=== PATIENT | male | born 1965 | race Caucasian/White ===

== ENCOUNTER 2024-01-16 11:46 | Emergency (ER) | payer BC, SELFPAY ==
[2024-01-16 11:54] VITALS: BP 122/73
[2024-01-16] MEDS: TYLENOL 1000 MG PO (12:39)
[2024-01-16 12:51] LABS: % Basophils 0.4 % (0-2); % Eosinophils 0.1 % (0-6); % Immature Granulocytes 0.6 % (0-0.5); % Lymphocytes 4.2 % (20.5-51.1); % Monocytes 6.1 % (1.7-9.3); % Neutrophils 88.6 % (42.2-75.2); Absolute Immature Granulocytes 0.1 10^3/uL (0-0.05); Absolute Lymphocytes 0.5 10^3/uL (1.2-3.4); Absolute Monocytes 0.7 10^3/uL (0.1-0.6); Hematocrit 25.6 % (39.0-52.0); Hemoglobin 8.7 g/dL (13.0-18.0); Mean Corpuscular Hgb 26.8 pg (27.0-31.0); Mean Corpuscular Volume 78.8 fL (80.0-94.0); Mean Platelet Volume 9.2 fL (7.4-10.4); Nucleated Red Blood Cells % 0 % (-); Platelet Count 243 10^3/uL (130-400); Red Blood Cell Count 3.25 10^6/uL (4.70-6.10); Red Cell Dist. Width 15.5 % (11.5-14.5); White Blood Cell Count 11.3 10^3/uL (4.8-10.8)
[2024-01-16 13:03] LABS: COVID-19 Antigen Negative (Negative); Lactic Acid 1.3 mmol/L (0.7-2.0)
[2024-01-16 13:06] LABS: ALT (SGPT) 37 U/L (0-50); AST (SGOT) 38 U/L (17-59); Albumin 3.6 g/dl (3.5-5.0); Alkaline Phosphatase 95 U/L (38-126); Blood Urea Nitrogen 25 mg/dl (9-20); Calcium 8.9 mg/dl (8.4-10.2); Carbon Dioxide 18 mmol/L (22-30); Chloride 103 mmol/L (98-107); Glucose 115 mg/dl (70-99); Potassium 4.2 mmol/L (3.5-5.1); Sodium 133 mmol/L (135-145); Total Bilirubin 0.9 mg/dl (0.2-1.3); Total Protein 6.6 g/dl (6.3-8.2); eGFR > 60.00
--- NOTE | 2024-01-16 14:21 | ED.GENMED ---
History of Present Illness
<Tim Diehl MD - Last Filed: 01/17/24 10:47>
General
Chief Complaint: Fever
Source: patient
Exam Limitations: none
Time Seen by Provider: 01/16/24 12:20
Nursing documentation reviewed up to this point in time: agreed with
Travel History
Have you had any contact with someone who has COVID-19?: No
Do you have any symptoms of coronavirus? Fever > 100 degrees, chills, cough, shortness of breath, sore throat, loss of taste or smell, muscle aches, or headache?: No
History of Present Illness
History of Present Illness:
Patient presents to ED secondary to generalized fatigue and weakness over the past 3 weeks, along with chills sensation upon waking up this morning. Patient has seen his primary care physician since onset of symptoms and was found to have anemia.
Patient has seen a GI physician as a follow-up, and received outpatient upper endoscopy which was 'normal'. Patient was given prescription to obtain CT abdomen pelvis afterwards, which has not been scheduled yet. Denies coughing. Denies sore
throat. Denies abdominal pain. Denies nausea, vomiting, or diarrhea. Denies headache. Denies dizziness. Denies recent change in medications or diet. Upon arrival, patient is found to be febrile, which he was not aware of.
Review of Systems
<Tim Diehl MD - Last Filed: 01/17/24 10:47>
Review of Systems
Allergies reviewed?: Yes
All Other Systems: ROS reviewed and negative except as documented in HPI and ROS
Constitutional: Reports fatigue and chills
EENT: Reports no symptoms
Respiratory: Reports cough
Cardiac: Reports no symptoms
ABD/GI: Reports no symptoms; Denies abdominal pain, nausea, vomiting or diarrhea
: Reports no symptoms
Musculoskeletal: Reports no symptoms
Skin: Reports no symptoms
Neurological: Reports weakness
Phy Exam
<Tim Diehl MD - Last Filed: 01/17/24 10:47>
Physical Exam
Physical Exam:
Physical Exam
General: mild distress, not acutely ill. febrile. tachycardic
Head: nc/at. eomi
Neck: supple. no meningeal signs.
Heart: tachycardic, no murmur. equal radial pulses.
Lungs: no acute respiratory distress. clear bilaterally
Abdomen: normal bowel sounds. not tender.
Neuro: alert and oriented. no focal neurological deficits
Skin: no rash
Psychiatric: well kept. interactive and cooperative
Extremities: no edema. no calf tenderness.
Course
<Tim Diehl MD - Last Filed: 01/17/24 10:47>
Orders/Labs/Results
Orders:
Orders
01/16/24 11:48
EKG [Electrocardiogram (*1)] Urgent
Reason for Study: Chest Pain
EKG- Treatment ONCE
01/16/24 12:31
CMP [Comprehensive Metabolic Panel] Urgent
COVID-19 Antigen Urgent
Source: Nasal Swab
Complete Blood Count/With Diff Urgent
Lactic Acid Urgent
Blood Culture Routine
[facility] Source: Blood/Venous
Specimen Description:
Date Specimen was Collected: 01/16/24
Time Specimen was Collected: 12:29
Influenza A+B Rapid Molecular Urgent
[facility] Source: Nasal Swab
Specimen Description:
01/16/24 12:37
Acetaminophen [Tylenol] 1,000 mg .ROUTE .[facility]-MED ONE
01/16/24 12:39
Acetaminophen [Tylenol] 1,000 mg PO NOW STA
01/16/24 14:18
Urinalysis Reflex To Culture Urgent
Date Specimen was Collected: 01/16/24
Time Specimen was Collected: 14:16
Urine Microscopic Reflex Cult Urgent
01/16/24 14:19
Iohexol [Omnipaque] See Protocol PO NOW STA
01/16/24 15:03
CT Chest/abd/pel W Iv Cont Urgent
Reason For Exam: COUGH, WT LOSS, ANEMIA,FEVER
01/16/24 19:19
Blood Culture Urgent
[facility] Source: Blood/Venous
Specimen Description:
Abnormal Lab Results
01/16/24 01/16/24
12:31 14:18
WBC 11.3 H 10^3/uL
(4.8-10.8)
RBC 3.25 L 10^6/uL
(4.70-6.10)
Hgb 8.7 L g/dL
(13.0-18.0)
Hct 25.6 L %
(39.0-52.0)
MCV 78.8 L fL
(80.0-94.0)
MCH 26.8 L pg
(27.0-31.0)
RDW 15.5 H %
(11.5-14.5)
Abs Immat Gran (auto) 0.1 H 10^3/uL
(0-0.05)
Absolute Neuts (auto) 10.0 H 10^3/uL
(1.4-6.5)
Absolute Lymphs (auto) 0.5 L 10^3/uL
(1.2-3.4)
Absolute Monos (auto) 0.7 H 10^3/uL
(0.1-0.6)
Immature Gran % 0.6 H %
(0-0.5)
Neutrophils % 88.6 H %
(42.2-75.2)
Lymphocytes % 4.2 L %
(20.5-51.1)
Sodium 133 L mmol/L
(135-145)
Carbon Dioxide 18 L mmol/L
(22-30)
BUN 25 H mg/dl
(9-20)
Glucose 115 H mg/dl
(70-99)
Ur Occult Blood Reflex 4+ A
(Negative)
Leukocyte Esterase Rfl Trace A
(Negative)
Urine RBC 26-30 A /HPF
(0-2)
Urine Bacteria (Reflex) Few A
(Negative)
01/16/24 12:31
01/16/24 12:31
Vital Signs
Initial and Last Documented VS:
Initial Vital Signs
Temp Pulse Resp BP Pulse Ox
102.9 F H 148 22 122/73 100
01/16/24 11:54 01/16/24 11:54 01/16/24 11:54 01/16/24 11:54 01/16/24 11:54
Last Documented Vital Signs
Temp Pulse Resp BP Pulse Ox
99.3 F 84 12 107/66 100
01/16/24 14:09 01/16/24 19:23 01/16/24 19:23 01/16/24 19:23 01/16/24 19:23
[place];Eugenio Davis, - Last Filed: 01/19/24 14:51>
Orders/Labs/Results
Orders:
Orders
01/16/24 11:48
EKG [Electrocardiogram (*1)] Urgent
Reason for Study: Chest Pain
EKG- Treatment ONCE
01/16/24 12:31
CMP [Comprehensive Metabolic Panel] Urgent
COVID-19 Antigen Urgent
Source: Nasal Swab
Complete Blood Count/With Diff Urgent
Lactic Acid Urgent
Blood Culture Routine
[facility] Source: Blood/Venous
Specimen Description:
Date Specimen was Collected: 01/16/24
Time Specimen was Collected: 12:29
Influenza A+B Rapid Molecular Urgent
[facility] Source: Nasal Swab
Specimen Description:
01/16/24 12:37
Acetaminophen [Tylenol] 1,000 mg .ROUTE .[facility]
01/16/24 12:39
Acetaminophen [Tylenol] 1,000 mg PO NOW STA
01/16/24 14:18
Urinalysis Reflex To Culture Urgent
Date Specimen was Collected: 01/16/24
Time Specimen was Collected: 14:16
Urine Microscopic Reflex Cult Urgent
01/16/24 14:19
Iohexol [Omnipaque] See Protocol PO NOW STA
01/16/24 15:03
CT Chest/abd/pel W Iv Cont Urgent
Reason For Exam: COUGH, WT LOSS, ANEMIA,FEVER
01/16/24 19:19
Blood Culture Urgent
[facility] Source: Blood/Venous
Specimen Description:
Abnormal Lab Results
01/16/24 01/16/24
12:31 14:18
WBC 11.3 H 10^3/uL
(4.8-10.8)
RBC 3.25 L 10^6/uL
(4.70-6.10)
Hgb 8.7 L g/dL
(13.0-18.0)
Hct 25.6 L %
(39.0-52.0)
MCV 78.8 L fL
(80.0-94.0)
MCH 26.8 L pg
(27.0-31.0)
RDW 15.5 H %
(11.5-14.5)
Abs Immat Gran (auto) 0.1 H 10^3/uL
(0-0.05)
Absolute Neuts (auto) 10.0 H 10^3/uL
(1.4-6.5)
Absolute Lymphs (auto) 0.5 L 10^3/uL
(1.2-3.4)
Absolute Monos (auto) 0.7 H 10^3/uL
(0.1-0.6)
Immature Gran % 0.6 H %
(0-0.5)
Neutrophils % 88.6 H %
(42.2-75.2)
Lymphocytes % 4.2 L %
(20.5-51.1)
Sodium 133 L mmol/L
(135-145)
Carbon Dioxide 18 L mmol/L
(22-30)
BUN 25 H mg/dl
(9-20)
Glucose 115 H mg/dl
(70-99)
Ur Occult Blood Reflex 4+ A
(Negative)
Leukocyte Esterase Rfl Trace A
(Negative)
Urine RBC 26-30 A /HPF
(0-2)
Urine Bacteria (Reflex) Few A
(Negative)
01/16/24 12:31
01/16/24 12:31
Vital Signs
Initial and Last Documented VS:
Initial Vital Signs
Temp Pulse Resp BP Pulse Ox
102.9 F H 148 22 122/73 100
01/16/24 11:54 01/16/24 11:54 01/16/24 11:54 01/16/24 11:54 01/16/24 11:54
Last Documented Vital Signs
Temp Pulse Resp BP Pulse Ox
99.3 F 84 12 107/66 100
01/16/24 14:09 01/16/24 19:23 01/16/24 19:23 01/16/24 19:23 01/16/24 19:23
<Tim Diehl MD - Last Filed: 01/17/24 10:47>
*Critical Care Note
Total Time (30-74mins, 75-104mins- exclusive of procedures): Not Applicable
<Eugenio Davis DO - Last Filed: 01/19/24 14:51>
Update Note
Update Note:
Received signout on patient pending CAT scan report. CT does not show any evidence for infectious process, lymphoma or other reason for fever and anemia. Patient feeling okay right now. Does not require transfusion now. Will refer to heme-onc
for further workup of his microcytic anemia given he had a negative EGD recently had a negative colonoscopy a year ago. Will recommend the patient start iron as well.
ED Attending Note
<Tim iDehl MD - Last Filed: 01/17/24 10:47>
-
Portions of this chart may have been created with voice recognition software.� Occasional wrong word or��sound alike� substitutions may have occurred due to the inherent limitations of voice recognition software.
Discharge Plan
Departure
Patient Disposition: Home (Routine Discharge)
Date of Disposition: 01/16/24
Time of Disposition: 19:13
Patient with high blood pressure during this ER visit?: No
Condition: Good
Discharge Problem:
Fever, Anemia
Instructions: Fever, Adult (DC), Anemia, Possibly From Low Iron, Adult ED
Prescriptions:
No Action
acetaminophen [Tylenol] 325 mg Tablet
650 mg PO Q6HPRN PRN (Reason: mild pain)
atorvastatin [Lipitor] 20 mg Tablet
20 mg PO DAILY
cyanocobalamin (vitamin B-12) 1,000 mcg Tablet
1,000 mcg PO DAILY
ferrous sulfate 325 mg (65 mg iron) Tablet
325 mg PO DAILY
Referrals:
Belinda Rios MD [Active] -
Vineet Chin DO [Family Provider] -
Activity Restrictions/Additional Instructions:
Continue taking Iron. Call Dr. Leos's office for the next available appointment. Return if you feel you are getting worse. We will call you if your blood cultures grow anything.
Interventions
Interventions:
*Risk Screen - Suicide Last Done: 01/16/24 12:52
*General Assessment Last Done: 01/16/24 12:52
*Neglect/Abuse Screening Last Done: 01/16/24 12:52
ED- Fall Risk Assessment Last Done: 01/16/24 12:52
*ED COVID-19 Vaccine History Last Done: 01/16/24 12:52
*Nursing Disposition Last Done: 01/16/24 19:36
ED- Neurological Assessment Last Done: 01/16/24 12:52
ED-Skin Assessment Last Done: 01/16/24 12:52
Discharge Date and Time
Discharge Date/Time: 01/16/24 19:37
[2024-01-16] MEDS: OMNIPAQUE 50 ML PO (14:24)
[2024-01-16 14:27] LABS: Urine Albumin Trace (Neg - Trace); Urine Bilirubin Negative (Negative); Urine Character Clear (Clear); Urine Color Yellow; Urine Glucose Negative (Negative); Urine Ketone Negative (Negative); Urine Leukocyte Trace (Negative); Urine Nitrite Negative (Negative); Urine Occult Blood 4+ (Negative); Urine Specific Gravity 1.015 (<1.030); Urine Urobilinogen Negative (Neg - 1+)
[2024-01-16 14:39] LABS: Urine Squamous Cell 0-2 /LPF (Few)
[2024-01-16 14:40] LABS: Urine Bacteria Few (Negative); Urine Red Blood Cell 26-30 /HPF (0-2)
--- NOTE | 2024-01-16 19:00 | EDRN ---
Assumed care at this time, introduced myself to patient, rechecked vitals as well first reading was low, repeated and ambulated patient per Dr. Guzman request who also is in at bedside re-assessing patient. Patient reports he feels much better
then he did earlier.
[2024-01-16 19:16] VITALS: BP 76/48
[2024-01-16 19:18] VITALS: BP 70/58
[2024-01-16 19:19] VITALS: BP 101/68
[2024-01-16 19:23] VITALS: BP 107/66
== END 2024-01-16 19:37 | disposition home or self-care (01) ==
LOC: EMR 11:46
PROVIDERS: EMERGENCY PHYSICIAN Emergency Medicine; FAMILY PHYSICIAN Family Medicine Sports Medicine
DX: R50.9 Fever, unspecified (principal); D64.9 Anemia, unspecified; D72.829 Elevated white blood cell count, unspecified; I10 Essential (primary) hypertension
CPT/HCPCS: 99284; 71260; 74177; 80053; 81003; 81015; 83605; 85025; 87040; 87077; 87205; 87502; 87811; 93005; Q9967

== ENCOUNTER 2024-01-17 18:27 | Inpatient (IN) | payer BC, SELFPAY ==
[2024-01-17 16:01] VITALS: BP 118/67
[2024-01-17 16:59] VITALS: BMI 27.4
--- NOTE | 2024-01-17 17:06 | ED.GENMED ---
History of Present Illness
General
Chief Complaint: Abnormal Lab Value
Source: patient
Time Seen by Provider: 01/17/24 16:35
Travel History
Have you had any contact with someone who has COVID-19?: No
Do you have any symptoms of coronavirus? Fever > 100 degrees, chills, cough, shortness of breath, sore throat, loss of taste or smell, muscle aches, or headache?: No
History of Present Illness
History of Present Illness:
58-year-old male presents to the emergency room after being called to return today. Patient was here yesterday for fever, chills, malaise lasting 3 weeks. He has been undergoing workup by his primary care doctor who identified he was anemic. He
had a upper endoscopy performed which was unremarkable. Had a colonoscopy 1 year ago which was unremarkable. During his visit yesterday he had a CT of the chest abdomen pelvis which did not reveal any source of infection or reason for anemia.
Patient continued to have subjective fever and chills last night.
Phy Exam
Physical Exam
Physical Exam:
General: Awake, Alert, Oriented X3. Appears ill but not unstable
Vitals: unremarkable
Head: Atraumatic
Eyes: Pupils equal, EOMI
Throat: Airway intact, no exudates
Neck: Trachea midline
Lungs: Clear and equal b/l
Heart: Regular rate, no murmurs
Abd: Soft, Nontender, No pulsatile mass
Neuro: Nonfocal
Skin: Pale, warm, dry, no rash
Extremities: pulses equal b/l, no edema
Course
Orders/Labs/Results
Orders:
Orders
01/17/24 Lunch
Regular
At Your Request: Full Participation
Does patient need a safe tray?: No
Reason for opting out of [employer] order writing: Provider Decision
01/17/24 16:43
Cardiac Monitoring- Treatment ONCE
03/03/24 16:45
0.9% Sodium Chloride 1000 ml [Nss] 1,000 ml IV BOLUS
01/17/24 17:05
CefTRIAXone [Rocephin] 1,000 mg IV NOW STA
01/17/24 17:07
Basic Metabolic Panel Urgent
Complete Blood Count/With Diff Urgent
Lactic Acid Q4H
Comment: CANCEL 2nd LACTIC ACID IF 1st LACTIC ACID IS LESS THAN 2
Urinalysis Reflex To Culture Urgent
Date Specimen was Collected: 01/17/24
Time Specimen was Collected: 16:57
Urine Microscopic Reflex Cult Urgent
Blood Culture Q30M
[facility] Source: Blood/Venous
Specimen Description:
Blood Culture Q30M
[facility] Source: Blood/Venous
Specimen Description:
Urine Culture Urgent
[facility] Source: U
Specimen Description:
Date Specimen was Collected: 01/17/24
Time Specimen was Collected: 16:57
01/17/24 17:36
Vancomycin [Vancocin] 2,000 mg 0.9% Sodium Chloride 500 ml [Nss] 500 ml IV NOW
01/17/24 17:43
Acetaminophen [Tylenol] 650 mg .ROUTE .[facility]
01/17/24 18:05
Admit/Transfer Patient As Directed
Co-Sign Provider:
Level of Care: Inpatient admission
Assign to:: Telemetry
Physician / Group: Kari Greene
Diagnosis: bacteremia, possible endocarditis
Reason for Telemetry: Other
Other Reason for Telemetry: bacteremia, possible endocarditis
Date to Stop Telemetry: 01/19/24
Time to Stop Telemetry: 11:00
Reason for Hospitalization: bacteremia, possible endocarditis
Expected length of stay greater than two midnights?: Yes
ELOS- Estimated Length of Stay in days: 3
I certify the patient meets the requirements for IP care: Yes
01/17/24 18:06
Code Status As Directed
Resuscitation Status: Full Code
01/17/24 21:16
0.9% Sodium Chloride 1000 ml [Nss] 1,000 ml IV 60 mls/hr
Acetaminophen [Tylenol] 650 mg PO Q6HPRN PRN
Enoxaparin Sodium [Lovenox] 40 mg SC QPM
Ondansetron Injectable [Zofran] 4 mg IV Q6HPRN PRN
VANCOMYCIN Pharmacy to Dose [VANCOCIN Pharmacy to Dose] 1 each Pharmacy To Prepare [Call Pharmacy To Prepare] 0 ml IV PER PROTOCOL
01/17/24 21:16
Echo 2D MMode Color/Doppler Routine
Reason for Study: bacteremia, possible endocarditis
INFECTIOUS DISEASE CONSULT Routine
Consulting Provider: Michela Munroe
Was physician already notified: Yes
Activity As Directed
Activity Level: As Tolerated
Vital Signs As Directed
Frequency: Per unit guidelines
DX Deep Vein Thrombosis Video Routine
01/18/24 06:00
Basic Metabolic Panel IN AM
Complete Blood Count/With Diff IN AM
Ferritin IN AM
Folate IN AM
Haptoglobin [S] IN AM
Iron IN AM
LDH IN AM
Reticulocyte Count IN AM
Total Iron Binding IN AM
Vitamin B12 IN AM
01/18/24 08:00
Atorvastatin [Lipitor] 20 mg PO DAILY
01/18/24 10:00
CefTRIAXone [Rocephin] 1,000 mg IV Q24H
01/19/24 06:00
Basic Metabolic Panel IN AM
Complete Blood Count/With Diff IN AM
01/19/24 11:00
DC Protocol for Telemetry ONCE
01/20/24 06:00
Basic Metabolic Panel IN AM
Complete Blood Count/With Diff IN AM
Abnormal Lab Results
01/17/24
17:07
WBC 15.1 H 10^3/uL
(4.8-10.8)
RBC 3.23 L 10^6/uL
(4.70-6.10)
Hgb 8.8 L g/dL
(13.0-18.0)
Hct 25.5 L %
(39.0-52.0)
MCV 78.9 L fL
(80.0-94.0)
RDW 15.9 H %
(11.5-14.5)
Abs Immat Gran (auto) 0.1 H 10^3/uL
(0-0.05)
Absolute Neuts (auto) 12.6 H 10^3/uL
(1.4-6.5)
Absolute Monos (auto) 1.0 H 10^3/uL
(0.1-0.6)
Immature Gran % 0.6 H %
(0-0.5)
Neutrophils % 83.1 H %
(42.2-75.2)
Lymphocytes % 9.3 L %
(20.5-51.1)
Sodium 134 L mmol/L
(135-145)
Chloride 108 H mmol/L
(98-107)
Carbon Dioxide 20 L mmol/L
(22-30)
BUN 25 H mg/dl
(9-20)
Glucose 102 H mg/dl
(70-99)
Ur Occult Blood Reflex 4+ A
(Negative)
Leukocyte Esterase Rfl Trace A
(Negative)
Urine RBC 3-6 A /HPF
(0-2)
Urine WBC (Reflex) 16-20 A /HPF
(0-5)
Urine Bacteria (Reflex) Few A
(Negative)
01/17/24 17:07
01/17/24 17:07
Vital Signs
Initial and Last Documented VS:
Initial Vital Signs
Temp Pulse Resp BP Pulse Ox
97.8 F 91 18 118/67 100
01/17/24 16:01 01/17/24 16:01 01/17/24 16:01 01/17/24 16:01 01/17/24 16:01
Last Documented Vital Signs
Temp Pulse Resp BP Pulse Ox
97.6 F 87 18 118/71 99
01/17/24 21:05 01/17/24 21:05 01/17/24 21:05 01/17/24 21:05 01/17/24 21:05
MDM/Problems Addressed
Differential Diagnosis Includes:
Bacteremia, UTI, endocarditis
MDM/Problems Addressed:
Patient presents after being called back to the emergency room. He was here yesterday and blood cultures were positive. Patient feels just as poorly today as he did yesterday but no worse. No new complaints from yesterday. Broad-spectrum
antibiotic started in the form of Vanco and Rocephin. Patient will require hospitalization for IV antibiotics to treat the bacteremia and to identify the source.
Patient's labs today show an elevated white count of 15,000 which is slightly higher from yesterday. He has a left shift with some immature granulocytes. Renal function is similar.
Chronic conditions affecting care: Other (Anemia)
*Pulse Oximetry
Patient hypoxic: no
*Critical Care Note
Total Time (30-74mins, 75-104mins- exclusive of procedures): Not Applicable
ED Attending Note
-
Portions of this chart may have been created with voice recognition software.� Occasional wrong word or��sound alike� substitutions may have occurred due to the inherent limitations of voice recognition software.
Discharge Plan
Departure
Patient Disposition: Admit
Date of Disposition: 01/17/24
Time of Disposition: 17:06
Admit to: Med/Surg
Presentation/result/management discussed w/ accepting MD/DO: Hospitalist
Condition: Serious
Discharge Problem:
Bacteremia
Interventions
Interventions:
*Risk Screen - Suicide Last Done: 01/17/24 16:59
*General Assessment Last Done: 01/17/24 16:59
*Neglect/Abuse Screening Last Done: 01/17/24 16:59
ED- Fall Risk Assessment Last Done: 01/17/24 16:59
*ED COVID-19 Vaccine History Last Done: 01/17/24 16:59
*Nursing Disposition Last Done: 01/17/24 21:05
Discharge Date and Time
Discharge Date/Time: 01/17/24 21:05
[2024-01-17 17:14] LABS: % Basophils 0.4 % (0-2); % Eosinophils 0.3 % (0-6); % Immature Granulocytes 0.6 % (0-0.5); % Lymphocytes 9.3 % (20.5-51.1); % Monocytes 6.3 % (1.7-9.3); % Neutrophils 83.1 % (42.2-75.2); Absolute Basophils 0.1 10^3/uL (0-0.2); Absolute Immature Granulocytes 0.1 10^3/uL (0-0.05); Absolute Lymphocytes 1.4 10^3/uL (1.2-3.4); Absolute Neutrophils 12.6 10^3/uL (1.4-6.5); Hematocrit 25.5 % (39.0-52.0); Hemoglobin 8.8 g/dL (13.0-18.0); Mean Corp Hgb Conc. 34.5 g/dL (33.0-37.0); Mean Corpuscular Hgb 27.2 pg (27.0-31.0); Mean Corpuscular Volume 78.9 fL (80.0-94.0); Mean Platelet Volume 9.1 fL (7.4-10.4); Nucleated Red Blood Cells % 0 % (-); Platelet Count 245 10^3/uL (130-400); Red Blood Cell Count 3.23 10^6/uL (4.70-6.10); Red Cell Dist. Width 15.9 % (11.5-14.5); White Blood Cell Count 15.1 10^3/uL (4.8-10.8)
[2024-01-17 17:26] LABS: Blood Urea Nitrogen 25 mg/dl (9-20); Calcium 8.5 mg/dl (8.4-10.2); Carbon Dioxide 20 mmol/L (22-30); Chloride 108 mmol/L (98-107); Estimated Creatinine Clearance 65 ml/min; Glucose 102 mg/dl (70-99); Lactic Acid 0.9 mmol/L (0.7-2.0); Sodium 134 mmol/L (135-145); eGFR > 60.00
[2024-01-17 17:30] LABS: Potassium 3.9 mmol/L (3.5-5.1)
[2024-01-17] MEDS: ROCEPHIN 1000 MG IV (17:31)
[2024-01-17] MEDS: NSS 1000 IV ×2 (17:32→21:57)
[2024-01-17] MEDS: VANCOCIN 540 MG IV (17:44)
--- NOTE | 2024-01-17 17:57 | HPS.HSE ---
Family Physician
-
Family Physician: Vineet Chin
Chief Complaint
-
fevers, chills x 3 weeks
History of Present Illness
58 y/o M hx of HLD, presents to ER for chills and weakness x 3 weeks. He reports obtaining blood work which showed anemia - he saw GI And had a normal EGD (no evidence of bleeding). He presented to ER yesterday and had a bear CT which was negative
and blood cultures. Today those blood cultures grew positive in both bottles, and patient was asked to return to ER For admission. Cultures are growing gram + cocci in chains. At present he only complaints of chills and some muscle aches. Denies any
headache, vision changes, back or neck pain, no chest pain or SOB, no GI Complaints. no rashes. Denies any trauma or injuries. No recent procedures outside of EGD.
In ER was given Vanco/Rocephin per ID and admitted.
Medical History
Past Medical History
Past Medical History: Reports Hypercholesterolemia
Past Surgical History: Reports None
Social History
Tobacco: Non-smoker
Alcohol: Occasional
Drug: None
Employment: Retired
Family History
Family History: Not pertinent
Allergies / Home Medications
Allergies reflects when Allergies were last updated in [facility].
Home Medications with original date entered in [facility]
Allergy/Medication List:
Allergies
Allergy/AdvReac Type Severity Reaction Status Date / Time
No Known Allergies Allergy Unverified 01/17/24 16:02
Home Medications
acetaminophen 325 mg tablet (Tylenol) 650 mg PO Q6HPRN PRN mild pain 01/17/24
atorvastatin 20 mg tablet (Lipitor) 20 mg PO DAILY 01/17/24
cyanocobalamin (vitamin B-12) 1,000 mcg tablet 1,000 mcg PO DAILY 01/17/24
ferrous sulfate 325 mg (65 mg iron) tablet 325 mg PO DAILY 01/17/24
Review of Systems
-
A 12 point ROS was completed and negative except as noted: Yes
Physical Exam
Vital Signs
Vital Signs
Temp Pulse Resp BP Pulse Ox
97.8 F 101 20 118/67 100
01/17/24 16:01 01/17/24 17:30 01/17/24 17:30 01/17/24 16:01 01/17/24 17:10
Physical Exam
General: Appears in Distress and Chills
HEENT: NormoCephalic and Anicteric
Respiratory: No Wheezes or Rales
Cardiac: S1/S2 and Regular Rhythm; No Murmur
GI: Soft and Non Tender
Neuro: AO x 3
Hematologic/Lymphatic: No Lymphadenopathy
Psych: Calm
Laboratory Results
-
01/17/24 17:07
01/17/24 17:07
Laboratory Results
Lactic Acid 0.9 mmol/L (0.7-2.0) 01/17/24 17:07
Data Reviewed
-
Lab Data: Labs Reviewed by me
Impression/Plan
-
Assessment:
early sepsis POA (tachycardia, leukocytosis, bacteremia)
Gram positive bacteremia
- in 2/2 bottles drawn 3/2 in ER
- CT C/A/P 3/2: normal
- UA pending
- check Echo to eval possible subacute or acute IE
- ID consulted; start Vancomycin/Rocephin
Anemia, suspected acute related to bacteremia
- check anemia workup including iron studies, b12, folate, hemolysis labs
- recent EGD per patient was normal. C-scope 1 year prior was also normal
Hyponatremia
- 1 bag NSS overnight and repeat BMP in AM
HLD - on statin
DVT ppx: Lovenox
Code: Full
[2024-01-17 18:00] VITALS: BP 128/75
[2024-01-17 19:00] VITALS: BP 111/75
[2024-01-17 19:59] LABS: Urine Albumin Trace (Neg - Trace); Urine Bilirubin Negative (Negative); Urine Character Clear (Clear); Urine Color Yellow; Urine Glucose Negative (Negative); Urine Ketone Negative (Negative); Urine Leukocyte Trace (Negative); Urine Nitrite Negative (Negative); Urine Occult Blood 4+ (Negative); Urine Urobilinogen Negative (Neg - 1+)
[2024-01-17 20:00] VITALS: BP 113/73
[2024-01-17 20:26] LABS: Urine Granular Cast 2 /LPF (0)
[2024-01-17 20:27] LABS: Urine White Cell Cast 6 /LPF
[2024-01-17 20:29] LABS: Urine Bacteria Few (Negative); Urine Mucus Many; Urine White Cell 16-20 /HPF (0-5)
[2024-01-17 21:05] VITALS: BP 118/71; BMI 28.5
--- NOTE | 2024-01-17 21:22 | PHA.VAN.IN ---
Assessment
- Assessment
Renal Function: Unknown baseline
Concomitant Antimicrobials: ceftriaxone
Plan
- Plan
Initial / Loading Dose: 2000mg - 01/16 17:44
Maintenance Regimen: dosing by level given unknown baseline SCR
Monitoring: random 01/17 0600
Pharmacokinetics Vancomycin I
- -
Patient Age: 58
Patient Sex: Male
Vancomycin Day #: 1
Indication: Bacteremia
Requesting Provider: Dr. Ahuja
Pertinent Antimicrobial Allergies:
NKDA
Height / Weight:
Height 5 ft 8 in
Actual Weight 84.935 kg
- Vital Signs / Lab Results
Temp Pulse Resp BP Pulse Ox
97.6 F 87 18 118/71 99
01/17/24 21:05 01/17/24 21:05 01/17/24 21:05 01/17/24 21:05 01/17/24 21:05
Lab Results - Hematology
01/17/24
17:07
WBC 15.1 H
Lab Results - Chemistry
01/17/24
17:07
BUN 25 H
Creatinine 1.2
Estimated Creat Clear 65
01/17/24 01/17/24
17:07 20:45
Lactic Acid 0.9 Cancelled
Lab Results - Urine
01/17/24
17:07
Urine Nitrite (Reflex) Negative
Leukocyte Esterase Rfl Trace A
Urine WBC (Reflex) 16-20 A
Urine Bacteria (Reflex) Few A
[2024-01-17] MEDS: LOVENOX 40 MG SC (21:57)
--- NOTE | 2024-01-17 23:20 | PTCARENOTE ---
Receive pt from ER. Pt alert oriented X3 calm and cooperative, in no distress. Pt assisted X1 to his bed, steady. Pt oriented to the room, call bliss within reach. Pt offers no complaint of fever, chills, chest pain, or SOB. Pt T=97.6, HR=87, RR=18,
CR=816/71, SpO2=99% on RA. Pt on NSR on telemonitor. IVFs infusing as per order. Will continue to monitor the pt.
[2024-01-17 23:22] VITALS: BP 110/68
[2024-01-18 03:42] VITALS: BP 114/69
[2024-01-18 07:20] VITALS: BP 117/71
[2024-01-18] MEDS: LIPITOR 20 MG PO (08:04)
[2024-01-18 08:15] LABS: % Basophils 0.4 % (0-2); % Eosinophils 0.6 % (0-6); % Immature Granulocytes 0.5 % (0-0.5); % Lymphocytes 11.5 % (20.5-51.1); % Monocytes 9.9 % (1.7-9.3); % Neutrophils 77.1 % (42.2-75.2); Absolute Eosinophils 0.1 10^3/uL (0-0.7); Absolute Immature Granulocytes 0.1 10^3/uL (0-0.05); Absolute Lymphocytes 1.1 10^3/uL (1.2-3.4); Absolute Neutrophils 7.5 10^3/uL (1.4-6.5); Hematocrit 23.3 % (39.0-52.0); Hemoglobin 7.9 g/dL (13.0-18.0); Mean Corp Hgb Conc. 33.9 g/dL (33.0-37.0); Mean Corpuscular Hgb 27.3 pg (27.0-31.0); Mean Corpuscular Volume 80.6 fL (80.0-94.0); Mean Platelet Volume 9.7 fL (7.4-10.4); Nucleated Red Blood Cells % 0 % (-); Platelet Count 224 10^3/uL (130-400); Red Blood Cell Count 2.89 10^6/uL (4.70-6.10); Red Cell Dist. Width 15.9 % (11.5-14.5); Reticulocyte Count 1.3 % (0.4-2.8); White Blood Cell Count 9.8 10^3/uL (4.8-10.8)
[2024-01-18 08:45] LABS: Blood Urea Nitrogen 18 mg/dl (9-20); Calcium 8.1 mg/dl (8.4-10.2); Carbon Dioxide 19 mmol/L (22-30); Chloride 113 mmol/L (98-107); Estimated Creatinine Clearance 78 ml/min; Glucose 81 mg/dl (70-99); Iron 46 ug/dl (49-181); LDH 176 U/L (120-246); Potassium 3.9 mmol/L (3.5-5.1); Sodium 136 mmol/L (135-145); eGFR > 60.00
[2024-01-18 08:53] LABS: Percent Saturation 23 % (20-50); Total Iron Binding Capacity 197 ug/dl (261-462)
[2024-01-18 08:56] LABS: Vancomycin Random 12.6 ug/ml
[2024-01-18] MEDS: STERILE WATER FOR INJECTION 10 ML IV (09:45)
[2024-01-18] MEDS: ROCEPHIN 1000 MG IV (09:45)
--- NOTE | 2024-01-18 09:47 | W.PN.HOSP.TC ---
Today's Communication/Plan
-
.
Assessment / Plan
Assessment / Plan
Physical Exam
General: Appears in Distress and Chills
HEENT: NormoCephalic and Anicteric
Respiratory: No Wheezes or Rales
Cardiac: S1/S2 and Regular Rhythm; soft systolic Murmur
GI: Soft and Non Tender
Neuro: AO x 3
Hematologic/Lymphatic: No Lymphadenopathy
Psych: Calm
# Bacteremia
early sepsis POA (tachycardia, leukocytosis, bacteremia)
Gram positive, streptococcal bacteremia
Preliminary echocardiogram showing vegetation on the aortic valve with moderate to severe aortic regurgitation. LVEF 60-65%
- CT C/A/P 3/: normal
-No chest pain. No shortness of breath
_ WBC normalized
Continue with IV antibiotic
Appreciate ID and cardiology input
# Valvular heart disease
Mild to moderate mitral regurgitation/moderate to severe aortic regurgitation
# Anemia, No active bleeding
OP Upper EGD reportedly normal
CT abdomen Chest / Abdomen/ pelvis showed no source of bleeding or anemia other than diverticulosis
-Low iron level
- C-scope 1 year prior was also normal
#Hyponatremia
- 1 bag NSS overnight and repeat BMP in AM
HLD - on statin
DVT ppx: Lovenox
Code: Full
Total time spent to see the patient, examine the patient on the floor, review data and lab results, discuss treatment plan with patient, nursing staff around 55 minutes
Anticipated Discharge: > 48 hours
Subjective/Interval History
-
Date of Service: January 18, 2024
No chest pain
No sob
No fevers
Objective Data
-
Labs:
Laboratory Results
01/18/24
06:43
WBC 9.8
Hgb 7.9 L
Hct 23.3 L
Plt Count 224
Sodium 136
Potassium 3.9
Chloride 113 H
Carbon Dioxide 19 L
BUN 18
Creatinine 1.0
Glucose 81
Calcium 8.1 L
Vital Signs:
Vital Signs
Temp Pulse Resp BP Pulse Ox
98.2 F 82 16 117/71 98
01/18/24 07:20 01/18/24 07:20 01/18/24 07:20 01/18/24 07:20 01/18/24 08:00
I&O
01/17/24 01/18/24 01/19/24
06:59 06:59 06:59
Intake Total 740 / 740
Balance 740 / 740
--- NOTE | 2024-01-18 09:53 | CON.CAR ---
Addendum entered and electronically signed by Raciel Giron MD 01/18/24 11:38:
I saw and examined the patient.
The BULL GANG WORKER's note was reviewed and I agree with the note.
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 No overt heart failure. We favor early JAZMYN to look carefully at MV and aortic root. Will need serial clinical, electrocardiographic, and echocardiographic followup. I reviewed
pathophysiology of endocarditis and valve damage from IE.
Original Note:
Consultation
Consultation Request
Date/Time Consultation Requested: 01/18/24 09:30
Date/Time Consultation Performed: 01/18/24 09:50
Requesting Provider: Dr. Martinez
Performing Provider: JOSIAH Cervantes for Dr. Giron
Reason for Consultation: Bacteremia
Medical History
-
Chief Complaint: Positive blood cultures
History of Present Illness:
Eugenio Glasgow is a 58-year-old male who initially presented to the emergency department 01/16/2024 with fatigue and weakness that started 3 weeks prior to arrival. He had associated fever and chills. He was seen by his PCP and was found to have
anemia. He had an upper GI which was 'normal'. Blood cultures were obtained and he was discharged home. He was called to present back due to blood culture growth. He presented the following day, 01/17/2024. His symptoms had not changed over 24
hours. He endorses associated muscle aches. His cultures are growing gram-positive cocci in chains. He denies recent skin trauma. He does report earlier this year he had issues with a dental implant. He reports it did not require antibiotic
therapy.
Past Medical History
Past Medical History: Hypercholesterolemia
Past Surgical History: None
Social History
Tobacco: Non-Smoker
Alcohol: Occasional
Drug: None
Personal:
Living: With Family
Employment: Retired ([employer])
Family History
Family History: Reviewed & Not Pertinent
Allergies / Home Medications
Allergy/AdvReac Type Severity Reaction Status Date / Time
No Known Allergies Allergy Unverified 01/17/24 16:02
Medication Instructions Recorded Confirmed Type
acetaminophen 325 mg tablet 650 mg PO Q6HPRN PRN mild pain 01/17/24 01/17/24 History
(Tylenol)
atorvastatin 20 mg tablet (Lipitor) 20 mg PO DAILY High Cholesterol 01/17/24 01/17/24 History
cyanocobalamin (vitamin B-12) 1,000 mcg PO DAILY Supplement 01/17/24 01/17/24 History
1,000 mcg tablet
ferrous sulfate 325 mg (65 mg 325 mg PO DAILY Supplement 01/17/24 01/17/24 History
iron) tablet
Review of Systems
-
History Source: Patient
All other systems: Negative unless noted
Constitutional: Fatigue
Neurological: Weakness
Physical Exam
Vital Signs
Temp Pulse Resp BP Pulse Ox
98.2 F 82 16 117/71 98
01/18/24 07:20 01/18/24 07:20 01/18/24 07:20 01/18/24 07:20 01/18/24 08:00
Lab Results
01/18/24 06:43
01/18/24 06:43
Physical Exam
General: Well Developed, Well Nourished, No Apparent Distress and Comfortable
HEENT: Normocephalic, Anicteric and Moist Mucous Membranes
Respiratory: Clear and Non Labored Respirations
Cardiac: S1/S2 and Regular Rhythm; Negative Peripheral Edema
Breast: Deferred by me
GI: Soft, Non Tender, Non Distended and Normal Bowel Sounds
Rectal: Deferred by Provider
Genito-urinary: No Costovertebral Tender
Musculoskeletal: No Clubbing, No Cyanosis and No Edema
Skin: Warm and Dry
Neuro: AO x 3
Hematologic/Lymphatic: No Lymphadenopathy
Psych: Calm
Impression / Plan
-
Bacteremia
-Gram + cocci in chains in both blood cultures (streptococcus?)
-ID consulted
-TTE: Echodensity consistent with a vegetation is present attached to the aortic�valve leaflets, perhaps involving the left coronary cusp.
-NPO after midnight, JAZMYN in am
-Daily EKGs to follow OK interval
Anemia, per primary
Moderate to severe aortic regurgitation
Mild to moderate mitral regurgitation
HLD, on atorvastatin 20mg
Data Reviewed
-
EKG: Report Reviewed by me (Sinus tachycardia, rate 129)
CT Scan: Report Reviewed by me (Ch/Ab/Pel: Minimal dependent atelectasis in the posterior lungs. Splenic size is in the upper range of normal. Bilateral benign-appearing renal cysts. Few colonic diverticula with no evidence for diverticulitis.)
Medical Tests (Nuc Med, Echo etc): Report Reviewed by me (Echocardiogram as above)
Labs: Labs Reviewed by me
Old Records: Reviewed
--- NOTE | 2024-01-18 10:06 | PHA.VAN.FU ---
Vancomycin Assessment / Plan
- Assessment
Renal Function: SCR Decreasing
Concomitant Antimicrobials: Ceftriaxone
- Assessment - Therapeutic Drug Monitoring
Random Level: 12.6
- Dosing Plan
Dosing by Level: Re-dose today (1000mg)
- Monitoring Plan
Random Level: 01/18 @0600. If SrCr is stable, switch to scheduled dosing
- Follow Up
Pharmacy will continue to follow.
Vancomycin Follow UP
- -
Patient Age: 58
Patient Sex: Male
Vancomycin Day #: 2
Indication: Bacteremia
Requesting Provider: Dr. Ahuja
Pertinent Antimicrobial Allergies:
NKDA
Height / Weight:
Height 5 ft 8 in
Actual Weight 84.935 kg
- Vital Signs / Lab Results
Temp Pulse Resp BP Pulse Ox
98.2 F 82 16 117/71 98
01/18/24 07:20 01/18/24 07:20 01/18/24 07:20 01/18/24 07:20 01/18/24 08:00
Lab Results - Hematology
01/17/24 01/18/24
17:07 06:43
WBC 15.1 H 9.8
Lab Results - Chemistry
01/17/24 01/18/24
17:07 06:43
BUN 25 H 18
Creatinine 1.2 1.0
Estimated Creat Clear 65 78
01/17/24 01/17/24
17:07 20:45
Lactic Acid 0.9 Cancelled
Lab Results - Urine
01/17/24
17:07
Urine Nitrite (Reflex) Negative
Leukocyte Esterase Rfl Trace A
Microbiology Results
01/17/24 17:07 Blood Culture - Preliminary
Blood/Venous Positive culture in progress
Gram Stain - Preliminary
Therapeutic Drug Monitoring
Random Vancomycin 12.6 ug/ml 01/18/24 06:43
[2024-01-18 11:05] VITALS: BP 154/84
--- NOTE | 2024-01-18 11:28 | CON.ID ---
Consultation
-
Date/Time Consultation Requested: 01/17/2024, 6
Date/Time Consultation Performed: 01/18/2024, 1100
Requesting Provider: Dr. Kari Ahuja
Performing Provider: Dr. Michela Munroe
Reason for Consultation: Bacteremia
Chief Complaint / Past History
Chief Complaint
Weakness and fever
History of Present Illness
58 year old male with dyslipidemia who started feeling unwell since after attending the [facility] in [place]. He was having chills, malaise, and weakness. Annual exam noted anemia. Colonoscopy was normal last year. He underwent EGD which
was normal. His PCP ordered CT c/a/p. However, pt presented to ED on 01/15 due to fever. T was 102.9, wbc 11. Blood cx's drawn. CT C/A/P unremarkable. He was discharged to home. The blood cultures turned positive and ED called him to return. He
was admitted 01/16. TTE today + AV vege. Pt reports no recent dental work. No wounds. No ill-contacts that he is aware of.
Past History
Additional Past Medical History:
Dyslipidemia
Past Surgical History: None
Allergy History:
No Known Allergies Allergy (Unverified 01/17/24 16:02)
Medications Reviewed: Yes
Current Antibiotics:
Vancomycin
Ceftriaxone
Social History
Tobacco: Non-Smoker
Alcohol: None
Drug: None
Living: Other (1 dog)
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
Family History
Family History: Not Pertinent
Review of Systems
Review of Systems
General: Fever, Chills and Change in Appetite
HEENT: Negative Sinus Problems, Headache or Pharyngitis
Cardiovascular: Negative Chest Pain or Dyspnea
Respiratory: Negative Dyspnea or Cough
Gasteroenterology: Other (no diarrhea); Negative Nausea or Vomiting
Genital / Urological: Negative Dysuria
Endocrine: Weakness and Fatigue
Musculoskeletal: Negative Arthralgias
Neurological: Negative Headache or Dizziness
All systems: All other systems were reviewed and were negative
Vital Signs
Temp Pulse Resp BP Pulse Ox
98.2 F 82 16 117/71 98
01/18/24 07:20 01/18/24 07:20 01/18/24 07:20 01/18/24 07:20 01/18/24 08:00
Physical Exam
Physical Exam
Constitutional: No Acute Distress and Comfortable
Eyes: No Conjunctival Hemorrhage and Sclera Anicteric
Pharynx: Benign
Cardiovascular: Regular Rate and S1/S2
Pulmonary: Clear
Gastrointestinal: Soft, Non Tender, Non Distended and Normal Bowel Sounds
Genito-Urinary: Negative CVA Tenderness
Extremities: Negative Edema, Erythema, Splinter Hemorrhage or Janeway Lesions
Skin: Negative Rash
Neurological: AO x 3
Lab / Diagnostic Study Results
01/18/24 06:43
01/18/24 06:43
Abs Immat Gran (auto) 0.1 10^3/uL (0-0.05) H 01/18/24 06:43
Absolute Neuts (auto) 7.5 10^3/uL (1.4-6.5) H 01/18/24 06:43
Absolute Lymphs (auto) 1.1 10^3/uL (1.2-3.4) L 01/18/24 06:43
Absolute Monos (auto) 1.0 10^3/uL (0.1-0.6) H 01/18/24 06:43
Absolute Basos (auto) 0.0 10^3/uL (0-0.2) 01/18/24 06:43
Immature Gran % 0.5 % (0-0.5) 01/18/24 06:43
Neutrophils % 77.1 % (42.2-75.2) H 01/18/24 06:43
Lymphocytes % 11.5 % (20.5-51.1) L 01/18/24 06:43
Monocytes % 9.9 % (1.7-9.3) H 01/18/24 06:43
Eosinophils % 0.6 % (0-6) 01/18/24 06:43
Basophils % 0.4 % (0-2) 01/18/24 06:43
Lactic Acid Cancelled 01/17/24 20:45
Microbiology Results
Micro:
01/17/24 17:07 Blood Culture - Preliminary
Blood/Venous Positive culture in progress
Gram Stain - Preliminary
01/17/24 17:07 Blood Culture - Preliminary
Blood/Venous Positive culture in progress
Gram Stain - Preliminary
01/17/24 17:07 Urine Culture - Pending
Urine
Assessment / Plan
# Aortic valve infective endocarditis (by TTE)
# Streptococcus bacteremia
# Fever/leukocytosis resolved
- Appreciate cardiology. For JAZMYN.
- DC Vancomycin.
-Increase ceftriaxone dose 2g IV q24h.
- Repeat blood cultures.
[2024-01-18 11:58] LABS: Folate 3.5 ng/ml (2.76-20); Vitamin B12 946 pg/ml (239-931)
[2024-01-18 15:20] VITALS: BP 159/85
[2024-01-18] MEDS: LOVENOX 40 MG SC (17:24)
--- NOTE | 2024-01-18 17:31 | CM ---
Alert awake oriented patient who lives with his Karin who lives in a split story home with 0 step to enter and 15 steps to bed and bathroom. He is independent in driving and in all activities of daily living.He was offered Vn he declined need.
No VN hx / No SNF history
Pharmacy [facility]
PCP DR Iglesias
PLAN Home Declined VN
[2024-01-18 19:00] VITALS: BP 145/88
[2024-01-18] MEDS: MELATONIN 5 MG PO (20:51)
[2024-01-18] MEDS: KLONOPIN 0.25 MG PO (23:17)
[2024-01-18 23:32] VITALS: BP 128/72
[2024-01-19 03:30] VITALS: BP 125/62
[2024-01-19 05:23] LABS: % Basophils 0.5 % (0-2); % Eosinophils 1.1 % (0-6); % Immature Granulocytes 1.4 % (0-0.5); % Lymphocytes 21.2 % (20.5-51.1); % Monocytes 11.3 % (1.7-9.3); % Neutrophils 64.5 % (42.2-75.2); Absolute Eosinophils 0.1 10^3/uL (0-0.7); Absolute Immature Granulocytes 0.1 10^3/uL (0-0.05); Absolute Lymphocytes 1.3 10^3/uL (1.2-3.4); Absolute Monocytes 0.7 10^3/uL (0.1-0.6); Absolute Neutrophils 4.1 10^3/uL (1.4-6.5); Hematocrit 25.7 % (39.0-52.0); Hemoglobin 8.5 g/dL (13.0-18.0); Mean Corp Hgb Conc. 33.1 g/dL (33.0-37.0); Mean Corpuscular Hgb 26.6 pg (27.0-31.0); Mean Corpuscular Volume 80.6 fL (80.0-94.0); Mean Platelet Volume 9.4 fL (7.4-10.4); Nucleated Red Blood Cells % 0 % (-); Platelet Count 229 10^3/uL (130-400); Red Blood Cell Count 3.19 10^6/uL (4.70-6.10); Red Cell Dist. Width 15.8 % (11.5-14.5); White Blood Cell Count 6.3 10^3/uL (4.8-10.8)
[2024-01-19 05:44] LABS: Blood Urea Nitrogen 15 mg/dl (9-20); Calcium 9.1 mg/dl (8.4-10.2); Carbon Dioxide 22 mmol/L (22-30); Chloride 108 mmol/L (98-107); Estimated Creatinine Clearance 78 ml/min; Glucose 94 mg/dl (70-99); Potassium 4.2 mmol/L (3.5-5.1); Sodium 139 mmol/L (135-145); eGFR > 60.00
[2024-01-19 07:42] VITALS: BP 150/79
[2024-01-19] MEDS: ROCEPHIN 2000 MG IV (07:43)
[2024-01-19] MEDS: LIPITOR 20 MG PO (07:43)
[2024-01-19] MEDS: STERILE WATER FOR INJECTION 20 ML IV (07:43)
--- NOTE | 2024-01-19 08:55 | W.PN.HOSP.TC ---
Today's Communication/Plan
-
.
Assessment / Plan
Assessment / Plan
Physical Exam
General: Appears in Distress and Chills
HEENT: NormoCephalic and Anicteric
Respiratory: No Wheezes or Rales
Cardiac: S1/S2 and Regular Rhythm; soft systolic Murmur
GI: Soft and Non Tender
Neuro: AO x 3
Hematologic/Lymphatic: No Lymphadenopathy
Psych: Calm
# Bacteremia
early sepsis POA (tachycardia, leukocytosis, bacteremia)
Gram positive, streptococcal bacteremia
Echocardiogram showing vegetation on the aortic valve with moderate to severe aortic regurgitation. LVEF 60-65%. Plan for JAZMYN today
- CT C/A/P /: normal
-No chest pain. No shortness of breath
_ WBC normalized
Continue with IV antibiotic
Appreciate ID and cardiology input
# Valvular heart disease
Mild to moderate mitral regurgitation/moderate to severe aortic regurgitation
# Anemia, No active bleeding
OP Upper EGD reportedly normal
CT abdomen Chest / Abdomen/ pelvis showed no source of bleeding or anemia other than diverticulosis
-Low iron level
- C-scope 1 year prior was also normal
#Hyponatremia
- 1 bag NSS overnight and repeat BMP in AM
# Insomnia
add Klonopin with melatonin
#HLD - on statin
DVT ppx: Lovenox
Code: Full
Total time spent to see the patient, examine the patient on the floor, review data and lab results, discuss treatment plan with patient, nursing staff around 57 minutes
Anticipated Discharge: > 48 hours
Subjective/Interval History
-
Date of Service: January 19, 2024
No chest pain
No sob
No fevers
Objective Data
-
Labs:
Laboratory Results
01/19/24
05:03
WBC 6.3
Hgb 8.5 L
Hct 25.7 L
Plt Count 229
Sodium 139
Potassium 4.2
Chloride 108 H
Carbon Dioxide 22
BUN 15
Creatinine 1.0
Glucose 94
Calcium 9.1
Vital Signs:
Vital Signs
Temp Pulse Resp BP Pulse Ox
98.2 F 77 18 150/79 98
01/19/24 07:42 01/19/24 07:42 01/19/24 07:42 01/19/24 07:42 01/19/24 08:00
I&O
01/18/24 01/19/24 01/20/24
06:59 06:59 06:59
Intake Total 740 / 740 1080 / 1080
Balance 740 / 740 1080 / 1080
--- NOTE | 2024-01-19 09:41 | W.PN.CD ---
Today's Communication / Plan
-
- JAZMYN shows 1.8 cm vegetation with moderate AR. There may be involvement of the anterior mitral valve leaflet as well (thickening without vegetation)
- I've consulted CT surgery
- ABx as directed by ID
Impression / Plan
-
58M with fever and streptococcal bacteremia. TTE concerning for vegetation.
Definite IE (2 major criteria with streptococcal bacteremia and vegetation.
- JAZMYN shows 1.8 cm vegetation with moderate AR. There may be involvement of the anterior mitral valve leaflet as well (thickening without vegetation)
- I've consulted CT surgery
- ABx as directed by ID
- Daily EKGs to follow SC interval
Anemia, per primary
Moderate to severe aortic regurgitation
Mild to moderate mitral regurgitation
HLD, on atorvastatin 20mg
Critically ill - 38 minutes used reviewing images with pt, discussion with pt and family, and discussion with CTS
Subjective: No CP, palps, or dyspnea. Fever has resolved
Physical Exam
Vital Signs/Labs
Vital Signs
Temp Pulse Resp BP Pulse Ox
36.8 C 77 18 150/79 98
01/19/24 07:42 01/19/24 07:42 01/19/24 07:42 01/19/24 07:42 01/19/24 08:00
01/18/24 01/19/24 01/20/24
06:59 06:59 06:59
Actual Weight 187 lb 4 oz
01/19/24 05:03
01/19/24 05:03
Physical Exam
Constitutional: No acute distress
EENT: Anicteric and Moist mucous membranes
Cardiovascular: Rhythm & rate is regular, Pedal edema is absent, Systolic murmur absent and Diastolic murmur absent
Respiratory: Respiratory effort normal
GI: Soft, Distention absent, Non tender and Normal bowel sounds
Neuro/Psych: Alert
Data Reviewed
-
Date of Service: January 19, 2024
--- NOTE | 2024-01-19 10:57 | CONSULT.CT ---
Consultation
-
Date/Time Consultation Requested: 01/19/24 1215
Date/Time Consultation Performed: 01/19/24 1238
Requesting Provider: Becka YOUNG
Performing Provider: Maricruz RAHMAN for Dr. Young
Reason for Consultation: AV endocarditis
Patient History
Physicians
Family Physician: Vineet Chin
Outpatient Case Finisher: None
Inpatient Case Finisher: Mack
History of Present Illness
58-year-old male with past medical history of hyperlipidemia presented to the [facility] emergency room on 01/16 with fever, chills, and weakness for 3 weeks after returning from [place] () While in the emergency room he had a bear
CAT scan which was negative and blood cultures. Those blood cultures grew gram-positive cocci in chains. He was admitted for IV antibiotics and patient was scheduled for a echocardiogram today showed which a 1.8cm AV vegetation. CT surgery was
consult for surgical evaluation.
Of note, patient stated that he started feeling ill around [place]. It started with a cough that never resolved. He also stated that he had dental cleaning in September. Denies IVDA.
Past Medical History
Past Medical History: HTN (hx of HTN crisis), Hypercholesterolemia and Other (Non-arteritic anterior ischemic optic neuropathy )
Past Surgical History
Past Surgical History: None
Dental History
Multiple bridges and implants
last dental exam September 2023
Family History
Mother: Still Living (Hx of Valve surgery)
Father: Still Living
Social History
Alcohol: Former (Former heavy drinker quit 6 years ago; now occasional)
Drug: None
Tobacco: Non-Smoker
Personal:
Living: With Spouse
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
Allergies
Allergy/AdvReac Type Severity Reaction Status Date / Time
No Known Allergies Allergy Unverified 01/17/24 16:02
Home Medications
Medication Instructions Recorded Confirmed Type
acetaminophen 325 mg tablet 650 mg PO Q6HPRN PRN mild pain 01/17/24 01/17/24 History
(Tylenol)
atorvastatin 20 mg tablet (Lipitor) 20 mg PO DAILY High Cholesterol 01/17/24 01/17/24 History
cyanocobalamin (vitamin B-12) 1,000 mcg PO DAILY Supplement 01/17/24 01/17/24 History
1,000 mcg tablet
ferrous sulfate 325 mg (65 mg 325 mg PO DAILY Supplement 01/17/24 01/17/24 History
iron) tablet
Review of Systems
-
History Source: Patient
General: Reports Fever, Fatigue, Night Sweats and Chills
HEENT: Reports No Symptoms
Respiratory: Reports SOB
Cardiac: Reports No Symptoms
Abdomen/GI: Reports No Symptoms
: Reports No Symptoms
Musculoskeletal: Reports No Symptoms
Skin: Reports No Symptoms
Neurological: Reports No Symptoms
Vascular: Reports No Symptoms
Physical Exam
Vital Signs
Temp 98.2 F 01/19/24 07:42
Temp route: Oral 01/19/24 07:42
Pulse 77 01/19/24 07:42
Rhythm: Normal sinus rhythm 01/19/24 08:00
Resp Rate 18 01/19/24 07:42
Blood pressure 150/79 01/19/24 07:42
Blood pressure extremity used: Left upper arm 01/19/24 07:42
Position: Sitting 01/19/24 07:42
MAP (cuff-Marcus Monitor) 86 01/17/24 20:00
SaO2 98 01/19/24 08:00
Oxygen Mode of Delivery Room air 01/19/24 08:00
Acceptable pain level during hospitalization? 0 01/17/24 16:02
Can the patient verbally communicate their pain? Yes 01/19/24 08:00
Actual Weight 84.935 kg 01/17/24 21:05
Body Mass Index (BMI) 28.5 01/17/24 21:05
Labs
01/19/24 05:03
01/19/24 05:03
Urinalysis
Urine Color Yellow 01/17/24 17:07
Urine Clarity Clear (Clear) 01/17/24 17:07
Urine pH 5.0 (5.0-9.0) 01/17/24 17:07
Ur Specific [place] 1.020 (<1.030) 01/17/24 17:07
Urine Ketones Negative (Negative) 01/17/24 17:07
Ur Occult Blood Reflex 4+ (Negative) A 01/17/24 17:07
Urine Bilirubin Negative (Negative) 01/17/24 17:07
Leukocyte Esterase Rfl Trace (Negative) A 01/17/24 17:07
Urine RBC 3-6 /HPF (0-2) A 01/17/24 17:07
Urine WBC (Reflex) 16-20 /HPF (0-5) A 01/17/24 17:07
Urine Bacteria (Reflex) Few (Negative) A 01/17/24 17:07
Urine Mucus Many 01/17/24 17:07
Urine Glucose Negative (Negative) 01/17/24 17:07
Urine Albumin (Reflex) Trace (Neg - Trace) 01/17/24 17:07
Exam
General: Well Developed, Well Nourished and No Apparent Distress
HEENT: Normocephalic
Respiratory: Clear
Cardiac: S1/S2 and Murmur
GI: Soft and Distended
Rectal: Deferred by Provider
Skin: Warm and Dry
Neuro: AO x 3
Lymph: No Lymphadenopathy
Psych: Calm
Assessment / Plan
-
58-year-old male with past medical history listed above presented to the [facility] after 3 weeks of experiencing fever/chills. Transesophageal echocardiogram today showed a 1.8 cm vegetation on aortic valve. CT surgery was consulted for
surgical evaluation.
#Aortic valve endocarditis/ Severe Aortic Insuffiency
-Patient's case will be discussed with attending physician; Patient is tentatively on the schedule for Monday January 22, 2024
-Routine preoperative cardiothoracic surgery orders will be initiated.
-STS risk stratification score will be calculated after preoperative testing is complete
- Continue IV Abx per ID
#Anemia
- Outpatient GI work up negative
- Denies melena stools
- Will start IV Iron and Vitamin C pre-op
- Type and screen
[2024-01-19 11:25] VITALS: BP 133/80
--- NOTE | 2024-01-19 12:15 | W.PN.ID1 ---
Date of Service
Date of Service: January 19, 2024
Today's Communication
Follow repeat blood cx's.
Continue ceftriaxone.
Assessment / Plan
# Aortic valve infective endocarditis with moderate AR
# Streptococcus bacteremia persists
# Fever/leukocytosis resolved
- Appreciate cardiology. JAZMYN reviewed with heel trimmer.
-CT surgeon consulted.
- Continue repeat blood cultures for clearance.
- Continue ceftriaxone dose 2g IV q24h.
Will need at least 6 weeks of abx from neg blood cx.
Chief Complaint
-: Bacteremia and Other (Endocarditis)
Subjective / Review of Systems
Feels fine at this time.
Vital Signs / Physical Exam
Vital Signs
Vital Signs
Temp Pulse Resp BP Pulse Ox
98.2 F 77 18 150/79 98
01/19/24 07:42 01/19/24 07:42 01/19/24 07:42 01/19/24 07:42 01/19/24 08:00
Physical Exam
Constitutional: No Acute Distress
Cardiovascular: Regular Rate
Pulmonary: Clear
Gastrointestinal: Soft, Non Tender, Non Distended and Normal Bowel Sounds
Extremities: Negative Edema
Neurological: AO x 3
Objective Data
Lab Data
Lab Results
01/19/24 05:03
01/19/24 05:03
Estimated Creat Clear 78 ml/min 01/19/24 05:03
Lactic Acid Cancelled 01/17/24 20:45
Most recent labs reviewed.
Micro Results:
01/17/24 17:07 Urine Culture - Final
Urine NO GROWTH
01/17/24 17:07 Blood Culture - Preliminary
Blood/Venous Streptococcus species
Gram Stain - Final
01/17/24 17:07 Blood Culture - Preliminary
Blood/Venous Streptococcus species
Gram Stain - Final
01/19/24 05:42 Blood Culture - Pending
Blood/Venous
01/19/24 05:03 Blood Culture - Pending
Blood/Venous
Care Review
Plan reviewed with: Physician (Becka Gonzalez)
--- NOTE | 2024-01-19 13:23 | W.PN.UPDATE ---
Update Note
Progress Note Update
CARDIAC SURGERY ATTENDING:
It was my pleasure to evaluate Mr. Eugenio Glasgow. I met with him and his family (, son, and father) at bedside this afternoon. We reviewed his pathology, the proposed operative interventions, the associated operative risks (including, but
not limited to, , stroke, [place], PPM requirement, early/late prosthetic valve endocarditis, pneumonia, EDMUNDO/F, infection, and bleeding), the expected in-hospital postprocedural course, and expected outpatient recovery. All questions were answered
to the best my abilities. We discussed the negative/positive of each type of valve replacement given his young age. He is not interested in having a mechanical valve replacement. His mother underwent aortic valve replacement x 2, initially having
a mechanical valve. She had difficulties with anticoagulation management and subsequent failure of her mechanical valve requiring tissue AVR. Most recently, she underwent valve in valve TAVR (last ).
I have reviewed his available studies. His prior CT�C/A/P does not demonstrate any significant coronary artery calcifications on my review. I will discuss with my radiology colleagues if there is adequate imaging to rule out significant concurrent
occult CAD. Given the mobile nature of this patient's vegetation and its location, I do not believe cardiac catheterization can be safely performed preoperatively. I greatly appreciate the expertise of all involved. I will continue with
preoperative workup with tentative plans to proceed to surgery this coming 01/22/2024.
Thank you for the opportunity to participate in the care of this kind gentleman.
Please call with any questions or concerns.
Cameron Young MD
[phone]
[2024-01-19] MEDS: FERRLECIT 110 MG IV (15:32)
[2024-01-19 15:40] VITALS: BP 113/55
[2024-01-19] MEDS: LOVENOX 40 MG SC (17:25)
--- NOTE | 2024-01-19 18:13 | W.PN.UPDATE ---
Update Note
Progress Note Update
Procedure Type:�Isolated AVR
PERIOPERATIVE OUTCOME ESTIMATE %
Operative Mortality 0.905%
Morbidity & Mortality 7.89%
Stroke 0.847%
Renal Failure 0.889%
Reoperation 3.35%
Prolonged Ventilation 4.2%
Deep Sternal Wound Infection 0.063%
Long Hospital Stay (>14 days) 5.94%
Short Hospital Stay (<6 days)* 35.1%
*higher values reflect a better outcome
�Copy
Clinical Summary
Planned Surgery: Isolated AVR, Urgent, First cardiovascular surgery
Demographics: 58 year old, White, male, 85kg, 173cm, BMI: 28.4 kg/m�
Lab Values: Creatinine: 1 mg/dL, Hematocrit: 25.7%, WBC Count: 6.3 10�/�L, Platelet Count: 713506 cells/�L
Substance Abuse: Never smoker, Alcohol use: <=1 drink/week
Risk Factors / Comorbidities: Active Endocarditis, Hypertension
Cardiac Status: Ejection Fraction = 60%
Coronary Artery Disease: No coronary symptoms
Valve Disease: Severe AR, Moderate MR, Trivial/Trace TR
[2024-01-19 19:39] VITALS: BP 135/80
[2024-01-19] MEDS: MELATONIN 5 MG PO (22:13)
[2024-01-19 23:25] VITALS: BP 108/69
[2024-01-20 03:22] VITALS: BP 104/73
[2024-01-20 07:19] LABS: % Basophils 0.6 % (0-2); % Eosinophils 1.8 % (0-6); % Immature Granulocytes 1.1 % (0-0.5); % Lymphocytes 23.5 % (20.5-51.1); % Monocytes 9.3 % (1.7-9.3); % Neutrophils 63.7 % (42.2-75.2); Absolute Eosinophils 0.1 10^3/uL (0-0.7); Absolute Immature Granulocytes 0.1 10^3/uL (0-0.05); Absolute Lymphocytes 1.5 10^3/uL (1.2-3.4); Absolute Monocytes 0.6 10^3/uL (0.1-0.6); Absolute Neutrophils 3.9 10^3/uL (1.4-6.5); Hematocrit 25.6 % (39.0-52.0); Hemoglobin 8.6 g/dL (13.0-18.0); Mean Corp Hgb Conc. 33.6 g/dL (33.0-37.0); Mean Corpuscular Hgb 27.1 pg (27.0-31.0); Mean Corpuscular Volume 80.8 fL (80.0-94.0); Mean Platelet Volume 9.1 fL (7.4-10.4); Nucleated Red Blood Cells % 0 % (-); Platelet Count 272 10^3/uL (130-400); Red Blood Cell Count 3.17 10^6/uL (4.70-6.10); Red Cell Dist. Width 15.9 % (11.5-14.5); White Blood Cell Count 6.2 10^3/uL (4.8-10.8)
[2024-01-20 07:20] VITALS: BP 127/77
[2024-01-20 07:40] LABS: Haptoglobin 256 mg/dL (30-200)
[2024-01-20 07:46] LABS: ALT (SGPT) 40 U/L (0-50); AST (SGOT) 47 U/L (17-59); Albumin 3.2 g/dl (3.5-5.0); Alkaline Phosphatase 101 U/L (38-126); Blood Urea Nitrogen 16 mg/dl (9-20); Calcium 8.9 mg/dl (8.4-10.2); Carbon Dioxide 19 mmol/L (22-30); Chloride 111 mmol/L (98-107); Direct Bilirubin 0.1 mg/dl (0.0-0.4); Estimated Creatinine Clearance 78 ml/min; Glucose 91 mg/dl (70-99); INR 1.08; Potassium 4.2 mmol/L (3.5-5.1); Sodium 137 mmol/L (135-145); Total Bilirubin 0.5 mg/dl (0.2-1.3); Total Protein 6.2 g/dl (6.3-8.2); eGFR > 60.00
[2024-01-20 07:47] LABS: APTT 35.7 Sec (23.4-35.0)
[2024-01-20] MEDS: STERILE WATER FOR INJECTION 20 ML IV (08:35)
[2024-01-20] MEDS: ROCEPHIN 2000 MG IV (08:35)
[2024-01-20] MEDS: LIPITOR 20 MG PO (08:35)
[2024-01-20] MEDS: LOPRESSOR 50 MG PO (09:29)
--- NOTE | 2024-01-20 09:29 | W.PN.CD ---
Today's Communication / Plan
-
Cardiac CT today to evaluate coronaries
Impression / Plan
-
Impression: 58M with fever and streptococcal bacteremia. TTE concerning for vegetation.
Plan:
Definite IE
- JAZMYN shows 1.8 cm vegetation with moderate AR. There may be involvement of the anterior mitral valve leaflet as well (thickening without vegetation)
- CT surgery planning OR Thursday.
- Cardiac CT today to evaluate coronaries
- ABx as directed by ID
- Daily EKGs to follow [place] interval
Anemia, per primary
Moderate to severe aortic regurgitation
Mild to moderate mitral regurgitation
HLD, on atorvastatin 20mg
Subjective: No CP, palps, or dyspnea. Fever has resolved
Physical Exam
Vital Signs/Labs
Vital Signs
Temp Pulse Resp BP Pulse Ox
36.7 C 69 18 127/77 99
01/20/24 07:20 01/20/24 07:20 01/20/24 07:20 01/20/24 07:20 01/20/24 07:20
01/20/24 06:55
01/20/24 06:55
PT 14.0 Sec (11.4-14.6) 01/20/24 06:55
INR 1.08 01/20/24 06:55
APTT 35.7 Sec (23.4-35.0) H 01/20/24 06:55
Physical Exam
Constitutional: No acute distress
EENT: Anicteric and Moist mucous membranes
Cardiovascular: Rhythm & rate is regular, Pedal edema is absent, Systolic murmur absent, Diastolic murmur absent and Pedal edema present
Respiratory: Respiratory effort normal, Wheeze Absent and Rhonchi Absent
GI: Soft and Distention absent
Neuro/Psych: Alert
Data Reviewed
-
Date of Service: January 20, 2024
[2024-01-20 09:36] LABS: Glycohemoglobin (HgbA1c) 5.6 % (4.0-5.6)
--- NOTE | 2024-01-20 10:14 | W.PN.HOSP.TC ---
Today's Communication/Plan
-
.
Assessment / Plan
Assessment / Plan
Physical Exam
General: Appears in Distress and Chills
HEENT: NormoCephalic and Anicteric
Respiratory: No Wheezes or Rales
Cardiac: S1/S2 and Regular Rhythm; soft systolic Murmur
GI: Soft and Non Tender
Neuro: AO x 3
Hematologic/Lymphatic: No Lymphadenopathy
Psych: Calm
# Streptococcal endocarditis with bacteremia
early sepsis POA (tachycardia, leukocytosis, bacteremia)
Gram positive, streptococcal bacteremia, await further details on microbe. Source could be oral/dental. X ray no active disease. No toothache per pt.
Echocardiogram showing vegetation on the aortic valve with moderate to severe aortic regurgitation. LVEF 60-65%. JAZMYN c/w Aortic valve endocarditis
CT surgery is evaluating the patient, plan for AV replacement this Thursday.
- CT C/A/P 01/15: normal
-No chest pain. No shortness of breath
_ WBC normalized
-Repeat blood culture 01/18 no growth. Repeat blood culture 01/19 pending
Continue with IV antibiotic
Appreciate ID, CT surgery and cardiology input
# Valvular heart disease
Noted.
Mild to moderate mitral regurgitation/moderate to severe aortic regurgitation
# Anemia, No active bleeding
OP Upper EGD reportedly normal
CT abdomen Chest / Abdomen/ pelvis showed no source of bleeding or anemia other than diverticulosis
-Low iron level, normal ferritin. Will do rectal exam.
- C-scope 1 year prior was also normal
Stable HGB around 8.
#Hyponatremia
resolved.
# Insomnia
added Klonopin with melatonin
#HLD - on statin
DVT ppx: Lovenox
Code: Full
Total time spent to see the patient, examine the patient on the floor, review data and lab results, discuss treatment plan with patient, nursing staff around 57 minutes
Anticipated Discharge: > 48 hours
Subjective/Interval History
-
Date of Service: January 20, 2024
No sob
No chest pain
Objective Data
-
Labs:
Laboratory Results
01/20/24
06:55
WBC 6.2
Hgb 8.6 L
Hct 25.6 L
Plt Count 272
PT 14.0
INR 1.08
APTT 35.7 H
Sodium 137
Potassium 4.2
Chloride 111 H
Carbon Dioxide 19 L
BUN 16
Creatinine 1.0
Glucose 91
Calcium 8.9
Total Bilirubin 0.5
AST 47
ALT 40
Alkaline Phosphatase 101
Vital Signs:
Vital Signs
Temp Pulse Resp BP Pulse Ox
98.1 F 74 18 127/77 99
01/20/24 07:20 01/20/24 09:29 01/20/24 07:20 01/20/24 07:20 01/20/24 07:20
I&O
01/19/24 01/20/24 01/21/24
06:59 06:59 06:59
Intake Total 1080 / 1080 1550 / 1550
Balance 1080 / 1080 1550 / 1550
[2024-01-20 11:15] VITALS: BP 128/71
--- NOTE | 2024-01-20 14:49 | W.PN.ID1 ---
Date of Service
Date of Service: January 20, 2024
Today's Communication
Continue ceftriaxone.
Assessment / Plan
# Aortic valve infective endocarditis 1.8 cm mobile vege with moderate AR
# Streptococcus bacteremia
# Fever/leukocytosis resolved
- Repeat blood cultures negative.
- Micro unable to identify Strep -> sent out to [facility]. Suspect NVS
- Continue ceftriaxone dose 2g IV q24h.
Will need at least 6 weeks of abx from neg blood cx.
- For valve surgery 01/21.
Chief Complaint
-: Bacteremia and Other (Endocarditis)
Subjective / Review of Systems
No new complaints.
Vital Signs / Physical Exam
Vital Signs
Vital Signs
Temp Pulse Resp BP Pulse Ox
97.7 F 67 16 128/71 99
01/20/24 11:15 01/20/24 11:15 01/20/24 11:15 01/20/24 11:15 01/20/24 11:17
Physical Exam
Constitutional: No Acute Distress and Comfortable
Gastrointestinal: Soft, Non Tender and Non Distended
Extremities: Negative Splinter Hemorrhage or Janeway Lesions
Objective Data
Lab Data
Lab Results
01/20/24 06:55
01/20/24 06:55
PT 14.0 Sec (11.4-14.6) 01/20/24 06:55
INR 1.08 01/20/24 06:55
APTT 35.7 Sec (23.4-35.0) H 01/20/24 06:55
Estimated Creat Clear 78 ml/min 01/20/24 06:55
Lactic Acid Cancelled 01/17/24 20:45
Total Bilirubin 0.5 mg/dl (0.2-1.3) 01/20/24 06:55
AST 47 U/L (17-59) 01/20/24 06:55
ALT 40 U/L (0-50) 01/20/24 06:55
Alkaline Phosphatase 101 U/L (38-126) 01/20/24 06:55
Most recent labs reviewed.
Micro Results:
01/17/24 17:07 Blood Culture - Preliminary
Blood/Venous Streptococcus species
Gram Stain - Final
01/17/24 17:07 Blood Culture - Preliminary
Blood/Venous Streptococcus species
Gram Stain - Final
01/20/24 06:55 Blood Culture - Pending
Blood/Venous
01/19/24 05:42 Blood Culture - Preliminary
Blood/Venous No Growth in 24 hours- Final report to follow
01/19/24 05:03 Blood Culture - Preliminary
Blood/Venous No Growth in 24 hours- Final report to follow
01/17/24 17:07 Urine Culture - Final
Urine NO GROWTH
[2024-01-20 15:20] VITALS: BP 122/80
[2024-01-20] MEDS: LOVENOX 40 MG SC (17:22)
[2024-01-20 19:48] VITALS: BP 127/68
[2024-01-20] MEDS: MELATONIN 5 MG PO (23:03)
[2024-01-20 23:33] VITALS: BP 111/62
[2024-01-21] VITALS (8 sets, daily range): BP systolic 113–131; BP diastolic 60–82; BMI 27.3
[2024-01-21] MEDS: STERILE WATER FOR INJECTION 20 ML IV (07:54)
[2024-01-21] MEDS: LIPITOR 20 MG PO (07:54)
[2024-01-21] MEDS: ROCEPHIN 2000 MG IV (07:54)
--- NOTE | 2024-01-21 08:58 | W.PN.CD ---
Today's Communication / Plan
-
OR tomorrow
Impression / Plan
-
Impression: 58M with fever and streptococcal bacteremia. TTE concerning for vegetation.
Plan:
Definite IE
- JAZMYN shows 1.8 cm vegetation with moderate AR. There may be involvement of the anterior mitral valve leaflet as well (thickening without vegetation)
- CT surgery planning OR Thursday.
- Cardiac CT yesterday
- ABx as directed by ID
- Daily EKGs to follow [place] interval
Anemia, per primary
Moderate to severe aortic regurgitation
Mild to moderate mitral regurgitation
HLD, on atorvastatin 20mg
Subjective: Feeling well no new complaints
Physical Exam
Vital Signs/Labs
Vital Signs
Temp Pulse Resp BP Pulse Ox
98.1 F 67 16 115/69 100
01/21/24 07:35 01/21/24 07:35 01/21/24 07:35 01/21/24 07:35 01/21/24 07:35
01/20/24 06:55
01/20/24 06:55
PT 14.0 Sec (11.4-14.6) 01/20/24 06:55
INR 1.08 01/20/24 06:55
APTT 35.7 Sec (23.4-35.0) H 01/20/24 06:55
Physical Exam
Constitutional: No acute distress
EENT: Anicteric
Cardiovascular: Rhythm & rate is regular
Respiratory: Respiratory effort normal and Lungs clear to auscul.
GI: Soft
Neuro/Psych: AO x 3
Data Reviewed
-
Date of Service: January 21, 2024
EKG: Tracing Personally Visualized and interpreted
Echo: Report Reviewed by me
Labs: Labs Reviewed by me
--- NOTE | 2024-01-21 10:30 | W.PN.HOSP.TC ---
Today's Communication/Plan
-
transfer to CT surgery service
Assessment / Plan
Assessment / Plan
Physical Exam
General: Appears in Distress and Chills
HEENT: NormoCephalic and Anicteric
Respiratory: No Wheezes or Rales
Cardiac: S1/S2 and Regular Rhythm; soft systolic Murmur
GI: Soft and Non Tender
Neuro: AO x 3
Hematologic/Lymphatic: No Lymphadenopathy
Psych: Calm
# Streptococcal endocarditis with bacteremia
early sepsis POA (tachycardia, leukocytosis, bacteremia)
Gram positive, streptococcal bacteremia, await further details on microbe. Source could be oral/dental. X ray no active disease. No toothache per pt.
Echocardiogram showing vegetation on the aortic valve with moderate to severe aortic regurgitation. LVEF 60-65%. JAZMYN c/w Aortic valve endocarditis
CT surgery is evaluating the patient, plan for AV replacement this Thursday.
- CT C/A/P 01/15: normal
-No chest pain. No shortness of breath
_ WBC normalized
-Repeat blood culture 01/18 no growth. Repeat blood culture 01/19 no growth, on 01/20 pending.
Continue with IV antibiotic
Appreciate ID, CT surgery and cardiology input
# Valvular heart disease
Noted.
Mild to moderate mitral regurgitation/moderate to severe aortic regurgitation
# Anemia, No active bleeding
OP Upper EGD reportedly normal
CT abdomen Chest / Abdomen/ pelvis showed no source of bleeding or anemia other than diverticulosis
-Low iron level, normal ferritin.
Put a call out to his GI doctor Dr Alcantar to get records
- C-scope 1 year prior was also normal
Stable HGB around 8.
#Hyponatremia
resolved.
# Insomnia
added Klonopin with melatonin
#HLD - on statin
DVT ppx: Lovenox
Code: Full
Total time spent to see the patient, examine the patient on the floor, review data and lab results, discuss treatment plan with patient, nursing staff around 57 minutes
Anticipated Discharge: > 48 hours
Subjective/Interval History
-
Date of Service: January 21, 2024
Objective Data
-
Vital Signs:
Vital Signs
Temp Pulse Resp BP Pulse Ox
98.1 F 67 16 115/69 100
01/21/24 07:35 01/21/24 07:35 01/21/24 07:35 01/21/24 07:35 01/21/24 07:35
I&O
01/20/24 01/21/24 01/22/24
06:59 06:59 06:59
Intake Total 1550 / 1550 960 / 960
Balance 1550 / 1550 960 / 960
--- NOTE | 2024-01-21 11:09 | W.PN.ID1 ---
Date of Service
Date of Service: January 21, 2024
Today's Communication
Valve surgery tomorrow as per CTS.
Continue ceftriaxone.
Assessment / Plan
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
# Streptococcus bacteremia (4 sets bcx's)
# Fever/leukocytosis resolved
- Repeat blood cultures negative from 01/19/24
- Micro unable to identify Strep -> sent out to [facility]. Suspect NVS
-For valve surgery 01/21. Please send tissue for culture.
- Continue ceftriaxone dose 2g IV q24h x 6 weeks through 03/01/24.
Infusion sheet submitted to manager rn case and placed in chart.
Will need PICC when close to discharge.
Chief Complaint
-: Bacteremia and Other (Endocarditis)
Subjective / Review of Systems
No complaints today.
Vital Signs / Physical Exam
Vital Signs
Vital Signs
Temp Pulse Resp BP Pulse Ox
98.1 F 67 16 115/69 100
01/21/24 07:35 01/21/24 07:35 01/21/24 07:35 01/21/24 07:35 01/21/24 07:35
Physical Exam
Constitutional: No Acute Distress
Cardiovascular: Regular Rate and S1/S2
Gastrointestinal: Soft and Non Tender
Extremities: Negative Splinter Hemorrhage or Janeway Lesions
Neurological: AO x 3
Objective Data
Lab Data
Lab Results
01/20/24 06:55
01/20/24 06:55
PT 14.0 Sec (11.4-14.6) 01/20/24 06:55
INR 1.08 01/20/24 06:55
APTT 35.7 Sec (23.4-35.0) H 01/20/24 06:55
Estimated Creat Clear 78 ml/min 01/20/24 06:55
Lactic Acid Cancelled 01/17/24 20:45
Total Bilirubin 0.5 mg/dl (0.2-1.3) 01/20/24 06:55
AST 47 U/L (17-59) 01/20/24 06:55
ALT 40 U/L (0-50) 01/20/24 06:55
Alkaline Phosphatase 101 U/L (38-126) 01/20/24 06:55
Most recent labs reviewed.
Micro Results:
01/20/24 06:55 Blood Culture - Preliminary
Blood/Venous No Growth in 24 hours- Final report to follow
01/21/24 05:20 Blood Culture - Pending
Blood/Venous
01/19/24 05:42 Blood Culture - Preliminary
Blood/Venous No Growth in 48 hours- Final report to follow
01/19/24 05:03 Blood Culture - Preliminary
Blood/Venous No Growth in 48 hours- Final report to follow
01/17/24 17:07 Blood Culture - Preliminary
Blood/Venous Streptococcus species
Gram Stain - Final
01/17/24 17:07 Blood Culture - Preliminary
Blood/Venous Streptococcus species
Gram Stain - Final
01/17/24 17:07 Urine Culture - Final
Urine NO GROWTH
--- NOTE | 2024-01-21 15:12 | CM ---
CM met w/ patient, father at bedside to complete pre-admission testing for AVR 01/21.
Pt. confirmed initial assessment info. He resides in a private, split level home w/ his spouse. He has no steps to enter the home but has 7 + 7 steps to enter his bedroom.
He is functionally indep. prior to admission w/ ADLs, mobility without the use of any assisted device. Pt. is retired from work. +drives.
Patient has Rx plan and uses [facility] on [address] and [address]
Discussed pre and post op routines.
Cardiac Surgery booklet provided.
Discussed post op restrictions to include lifting, driving, flying and sternal precautions.
Reviewed post op MD appointments, Cardiac Rehab and visit from CT Transitional Care RN.
Also reviewed plan for IV ABT at home. Pt. is aware of this need.
Initiated referral to [facility], will await confirmation of benefit for IV ABT.
Plan for CT Surg. 01/21.
Anticipated DC plan is for home w/ CT Transitional Care RN.
CM to follow.
--- NOTE | 2024-01-21 15:24 | PTCARENOTE ---
pt report received form Brooke DO on 4E, pt transferred w/ belongings. VS completed, no c/o pain. SR on the monitor, HR 80s-90s. SBP 130s. palpable pulses. pt on RA, 99% POX. lungs clear. pt abdomen s/n, denies n/v. diet tolerated, pt aware NPO at
midnight. ambulates in room independently. PIV. see worklist for VS, I&O, and assessment.
--- NOTE | 2024-01-21 17:25 | W.PN.UPDATE ---
Update Note
Progress Note Update
Patient is transferred to CT surgery service under care of Dr Young.
Hospitalist service will sign off
--- NOTE | 2024-01-21 21:00 | PTCARENOTE ---
Patient received resting in bed watching television. Patient A+A+Ox3. No neurological deficits noted. Afebrile. No c/o chills, rigors or body aches. No c/o nausea. No vomiting. Patient ambulating by self without difficulty. Patient clipped
and prepped for CVOR per protocol. 4% Chlorhexidine shower completed. Linens changed. Room air. SaO2 99%. Sinus Rhythm. Heart rate 70's. Patient with no c/o chest pain, pressure or discomfort. Normoactive bowel sounds. No BM. Voiding
without difficulty. No c/o back or flank pain. Assessment as documented.
[2024-01-21] MEDS: MELATONIN 5 MG PO (22:36)
[2024-01-22] VITALS (18 sets, daily range): BP systolic 96–135; BP diastolic 61–90; BMI 27.0
--- NOTE | 2024-01-22 00:15 | PTCARENOTE ---
NPO after midnight for CVOR in AM. Patient sleeping without difficulty. No c/o pain or discomfort. Afebrile. Assessment as documented.
[2024-01-22 05:11] LABS: Hematocrit 26.6 % (39.0-52.0); Hemoglobin 8.8 g/dL (13.0-18.0); Mean Corp Hgb Conc. 33.1 g/dL (33.0-37.0); Mean Corpuscular Hgb 26.8 pg (27.0-31.0); Mean Corpuscular Volume 81.1 fL (80.0-94.0); Platelet Count 302 10^3/uL (130-400); Red Blood Cell Count 3.28 10^6/uL (4.70-6.10); Red Cell Dist. Width 15.9 % (11.5-14.5); White Blood Cell Count 7.5 10^3/uL (4.8-10.8)
[2024-01-22 05:34] LABS: ALT (SGPT) 78 U/L (0-50); AST (SGOT) 80 U/L (17-59); Albumin 3.4 g/dl (3.5-5.0); Alkaline Phosphatase 112 U/L (38-126); Blood Urea Nitrogen 18 mg/dl (9-20); Calcium 9.2 mg/dl (8.4-10.2); Carbon Dioxide 24 mmol/L (22-30); Chloride 108 mmol/L (98-107); Estimated Creatinine Clearance 71 ml/min; Glucose 91 mg/dl (70-99); Potassium 4.5 mmol/L (3.5-5.1); Sodium 136 mmol/L (135-145); Total Bilirubin 0.5 mg/dl (0.2-1.3); Total Protein 6.6 g/dl (6.3-8.2); eGFR > 60.00
[2024-01-22] MEDS: MAGNESIUM OXIDE 500 MG PO (05:40)
[2024-01-22] MEDS: PROTONIX 40 MG PO (05:40)
[2024-01-22] MEDS: LOPRESSOR 25 MG PO (05:40)
[2024-01-22] MEDS: BACTROBAN 2% OINTMENT 1 APPLIC NASAL ×2 (05:40→20:42)
--- NOTE | 2024-01-22 06:00 | PTCARENOTE ---
Patient A+A+Ox3. No neurological deficits noted. Afebrile. Patient with no c/o pain or discomfort. AM lab work collected and sent. Height, Weight and Vital Signs charted. Patient took second 4% Chlorhexidine shower. Linens changed. Pre-Op
medications administered without difficulty. Metoprolol 25 mg PO given. Purpose and use of Heart pillow explained to patient - Return demonstration by patient. I.S. >3,000ml. AM lab work - AST 80, ALT 78 - PA for CT Surgery, Monico Suazo
PA-C, made aware of lab results. Waiting for patient's to arrive. Dr. Young to talk to patient before surgery. calliope player to CVOR.
--- NOTE | 2024-01-22 06:40 | W.CVOR.SURPR ---
CVOR Surgeon Immed Pre Op
-
I have examined this patient prior to performance of the scheduled procedure.
The patient's condition is unchanged from the time of the dictated/written History and
Physical and the patient is able to undergo the scheduled procedure.
[2024-01-22 07:29] LABS: ACT+ - POC 96 Seconds (82-134)
[2024-01-22] MEDS: ZINACEF 1500 MG IV ×2 (07:30→11:07)
[2024-01-22 07:33] LABS: B.E. - POC -5.1 mmol/L; Glucose - POC 85 mg/dl (65-99); HCO3 - POC 19 mmol/L (21-29); Hematocrit - POC 27 % PCV (42-52); Hemodilution- POC Yes; Hemoglobin Calculated - POC 9.2; Ionized Calcium - POC 1.23 mmol/L (1.12-1.27); O2 Saturation %Calculated-POC 99.6 5 (92-96); PCO2 - POC 32 mmHg (35-45); PO2 - POC 186 mmHg (80-100); Potassium - POC 3.8 mmol/L (3.6-5.0); Sodium - POC 138 mmol/L (135-145); pH - POC 7.39 (7.35-7.45)
[2024-01-22 08:44] LABS: ACT+ - POC 477 Seconds (82-134)
[2024-01-22 08:45] LABS: Urine Albumin 1+ (Neg - Trace); Urine Bilirubin Negative (Negative); Urine Character Clear (Clear); Urine Color Yellow; Urine Glucose Negative (Negative); Urine Ketone Negative (Negative); Urine Leukocyte Negative (Negative); Urine Nitrite Negative (Negative); Urine Occult Blood 4+ (Negative); Urine Specific Gravity 1.015 (<1.030); Urine Urobilinogen Negative (Neg - 1+)
--- NOTE | 2024-01-22 09:10 | CM ---
Addendum entered by LYLY Vu 01/22/24 15:37:
Call back from [facility] Taya Salmeron. Per Taya-patient has 100% coverage for home IV ABT.
Original Note:
Patient in OR today for CT surgery.
CM to follow for DC planning needs.
Anticipated DC plan is for home w/ CT Transitional Care RN + IV ABT
[2024-01-22 09:11] LABS: Urine Amorphous Seen; Urine Mucus Few; Urine Squamous Cell 0-2 /LPF (Few)
--- NOTE | 2024-01-22 09:13 | W.PN.ID1 ---
Date of Service
Date of Service: January 22, 2024
Today's Communication
follow cultures
Assessment / Plan
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
# Streptococcus bacteremia (4 sets bcx's)
# Fever/leukocytosis resolved
- Repeat blood cultures negative from 01/19/24
- Micro unable to identify Strep -> sent out to [facility]. Suspect NVS
- s/p valve surgery 01/21
- follow up valve culture
- Continue ceftriaxone dose 2g IV q24h x 6 weeks through 03/01/24.
- Infusion sheet submitted to case management assistant and placed in chart.
- Will need PICC when close to discharge.
Chief Complaint
-: Bacteremia and Other (Endocarditis)
Subjective / Review of Systems
afebrile - mild hypothermia on bear hugger
on pressors post op
remains intubated posst op
wbc, cr normal
valve was sent for tissue culture - in progress
01/20 blood cultures x2 in progress
Vital Signs / Physical Exam
Vital Signs
Vital Signs
Temp Pulse Resp BP Pulse Ox
98.2 F 68 16 135/77 98
01/22/24 05:00 01/22/24 05:40 01/22/24 05:00 01/22/24 05:40 01/22/24 05:00
Physical Exam
Constitutional: No Acute Distress and Other (intubated, sedated)
Cardiovascular: Regular Rate and S1/S2; Negative Murmur or Rub
Pulmonary: Clear and Symmetric; Negative Wheezes or Rales
Gastrointestinal: Soft, Non Tender, Non Distended and Normal Bowel Sounds
Skin: Warm and Dry; Negative Rash or Jaundice
Neurological: Negative Awake
Objective Data
Lab Data
Lab Results
01/22/24 04:52
03/08/24 04:52
PT 14.0 Sec (11.4-14.6) 01/20/24 06:55
INR 1.08 01/20/24 06:55
APTT 35.7 Sec (23.4-35.0) H 01/20/24 06:55
Estimated Creat Clear 71 ml/min 01/22/24 04:52
Lactic Acid Cancelled 01/17/24 20:45
Total Bilirubin 0.5 mg/dl (0.2-1.3) 01/22/24 04:52
AST 80 U/L (17-59) H 01/22/24 04:52
ALT 78 U/L (0-50) H 01/22/24 04:52
Alkaline Phosphatase 112 U/L (38-126) 01/22/24 04:52
Most recent labs reviewed.
Micro Results:
01/20/24 06:55 Blood Culture - Preliminary
Blood/Venous No Growth in 48 hours- Final report to follow
01/21/24 05:20 Blood Culture - Preliminary
Blood/Venous No Growth in 24 hours- Final report to follow
01/19/24 05:42 Blood Culture - Preliminary
Blood/Venous No Growth in 72 hours- Final report to follow
01/19/24 05:03 Blood Culture - Preliminary
Blood/Venous No Growth in 72 hours- Final report to follow
01/17/24 17:07 Blood Culture - Preliminary
Blood/Venous Streptococcus species
Gram Stain - Final
01/17/24 17:07 Blood Culture - Preliminary
Blood/Venous Streptococcus species
Gram Stain - Final
01/17/24 17:07 Urine Culture - Final
Urine NO GROWTH
[2024-01-22 09:14] LABS: Urine Bacteria Few (Negative); Urine White Cell 0-2 /HPF (0-5)
[2024-01-22 09:36] LABS: B.E. - POC -1.8 mmol/L; Glucose - POC 117 mg/dl (65-99); HCO3 - POC 23 mmol/L (21-29); Hematocrit - POC 22 % PCV (42-52); Hemodilution- POC Yes; Hemoglobin Calculated - POC 7.5; Ionized Calcium - POC 1.04 mmol/L (1.12-1.27); O2 Saturation %Calculated-POC 98.9 5 (92-96); PCO2 - POC 37 mmHg (35-45); PO2 - POC 126 mmHg (80-100); Potassium - POC 5.7 mmol/L (3.6-5.0); Sodium - POC 136 mmol/L (135-145)
[2024-01-22 09:41] LABS: ACT+ - POC 600 Seconds (82-134)
[2024-01-22 10:04] LABS: B.E. - POC -2.9 mmol/L; Glucose - POC 151 mg/dl (65-99); HCO3 - POC 22 mmol/L (21-29); Hematocrit - POC 25 % PCV (42-52); Hemodilution- POC Yes; Hemoglobin Calculated - POC 8.5; Ionized Calcium - POC 1.06 mmol/L (1.12-1.27); O2 Saturation %Calculated-POC 99.9 5 (92-96); PCO2 - POC 36 mmHg (35-45); PO2 - POC 254 mmHg (80-100); Potassium - POC 6.3 mmol/L (3.6-5.0); Sodium - POC 133 mmol/L (135-145); pH - POC 7.39 (7.35-7.45)
[2024-01-22 10:08] LABS: ACT+ - POC 580 Seconds (82-134)
[2024-01-22 10:26] LABS: B.E. - POC -1.1 mmol/L; Glucose - POC 150 mg/dl (65-99); HCO3 - POC 24 mmol/L (21-29); Hematocrit - POC 27 % PCV (42-52); Hemodilution- POC Yes; Hemoglobin Calculated - POC 9.1; Ionized Calcium - POC 1.07 mmol/L (1.12-1.27); PCO2 - POC 39 mmHg (35-45); PO2 - POC 371 mmHg (80-100); Potassium - POC 6.3 mmol/L (3.6-5.0); Sodium - POC 135 mmol/L (135-145); pH - POC 7.39 (7.35-7.45)
[2024-01-22 10:31] LABS: ACT+ - POC 505 Seconds (82-134)
[2024-01-22 11:10] LABS: ACT+ - POC 98 Seconds (82-134)
[2024-01-22 11:15] LABS: B.E. - POC -3.6 mmol/L; Glucose - POC 113 mg/dl (65-99); HCO3 - POC 22 mmol/L (21-29); Hematocrit - POC 25 % PCV (42-52); Hemodilution- POC Yes; Hemoglobin Calculated - POC 8.4; Ionized Calcium - POC 1.43 mmol/L (1.12-1.27); PCO2 - POC 41 mmHg (35-45); PO2 - POC 502 mmHg (80-100); Potassium - POC 4.8 mmol/L (3.6-5.0); Sodium - POC 138 mmol/L (135-145); pH - POC 7.34 (7.35-7.45)
--- NOTE | 2024-01-22 11:37 | W.IMMPOSTOP ---
Addendum entered and electronically signed by Cameron Young MD 01/22/24 13:14:
Dictated: [id number]
Original Note:
Surgical Immed Post Op Note
-
CARDIAC SURGERY OPERATIVE NOTE:
Preoperative Dx:
AV endocarditis
Postoperative Dx:
Same
Procedures:
1) Median sternotomy
2) Open exposure of R CFV
3) Excision of infected aortic valve
4) Thorascopic & direct inspection of MV
5) AVR (#25 Inspiris RESILIA)
Surgeon:
Cameron Young M.D.
Assistants:
Karthikeyan Nance P.A.-C. - open exposure of R CFV, international first officer throughout, chest closure ([id number])
Dorothea Baer P.A.-C. - closure of R CFV incision
Anesthesia:
Albert Villatoro M.D. and Renan Neville, C.R.N.A.
Perfusion:
Scarlet LooPRachelle; XC 79min, CPB 100min
Findings:
Sizable mobile vegetation on leading edge & body of NCC of aortic valve
The LCC and RCC w/ normal in appearance
There was no annular extension of vegetation/abscess
The aortomitral curtain, MV, & subvalvular apparatus were normal in appearance
Annulus & LVOT copiously irrigated w/ abx solution post resection of sokaogon AV
25mm Inspiris valve secured w/ 15 interrupted, pledgeted valve sutures & CorKnots
Post-JAZMYN w/ normal biventricular function w/o RWMA. Well-seated AV w/o PVL/AI, mean gradient 6mmHg
Implants:
Inspiris RESILIA, 25mm, SN: [id number]
Epicardial V-wire x 1
CT x 2
Sternal wires x 7
Sternal 'X' plate w/ 4 - 14mm & 4 - 12mm screws
Sternal 'square' plate w/ 4 - 12mm screws
Transfusions:
None
Specimens:
AV veg to pathology & microbiology
Complications:
None
Condition:
GTTS: levophed 5, precedex 0.5, insulin OFF
67 sinus w/ isoelectric STs. 97/60. 18/11. CVP 8. CO/CI: 5.7/3.0
Stable/guarded to CVICU
[2024-01-22] MEDS: ALBUMIN 5% 250 IV ×2 (12:08→15:19)
[2024-01-22 12:12] LABS: Glucose - Point of Care 136 mg/dl (70-99)
[2024-01-22 12:19] LABS: Hematocrit 23.9 % (39.0-52.0); Platelet Count 260 10^3/uL (130-400)
[2024-01-22 12:20] LABS: HCO3 24.3 mmol/L (21-28); Ionized Calcium 1.24 mMOL/L (1.15-1.33); O2 Saturation % 99.9 % (94-98); PCO2 42 mmHg (35-48); PO2 216 mmHg (83-108); Sodium 136 mMOL/L (136-145); pH 7.37 (7.35-7.45)
--- NOTE | 2024-01-22 12:22 | PTCARENOTE ---
Patient received from CVOR. Patient is nonresponsive s/p anesthesia. Unable to assess orientation and muscle strength grading. RASS -4. Pupils 2mm sluggish bilaterally. NSR with peaked T waves (K 5.0). HR 60s. V wire maintained to pacer box that is
on. Settings checked and adjusted, changed to HR 40, mA 10, sensitivity 2.5. Distant heart tones. L radial a-line maintained with BP 90s-120s/50s-70s. RIJ cordis and swan maintained at 42cm. Levophed gtt received at 4mcgs/min. Precedex gtt received
at 0.5mcgs/kg/hr. Nitro gtt received on standby. Cordis and VIP KVOs adjusted to 10cc/hr. Insulin gtt received on standby. PIV x2 maintained. Palpable pulses. No edema. 8.0 ETT, 26 at the lip. Ventilator settings: SIMV. RR 14, TV 500, PEEP 5, FiO2
60%. Oxygen saturation 100%. Upon auscultation, bilateral anterior breath sounds are diminished. MS CT x2 maintained to -20cm wall suction with small red drainage. No air leaks or tidaling noted. Abdomen round, hypoactive BS. Beltran maintained with
large amount of clear, yellow UOP. Received in report that patient received lasix prior to coming over. Complete bedrest s/p surgery. Assist x2 to turn/reposition. Sternal aquacell is clean, dry, intact. CT dressing is clean, dry, intact. R groin
incision is approximated with surgical adhesive and open to air. Will continue to monitor.
[2024-01-22 12:25] LABS: Mixed Venous O2 Saturation 70.2 %
[2024-01-22 12:34] LABS: INR 1.43; PT 17.3 Sec (11.4-14.6)
[2024-01-22 12:36] LABS: Blood Urea Nitrogen 20 mg/dl (9-20); Estimated Creatinine Clearance 65 ml/min; Glucose 142 mg/dl (70-99)
[2024-01-22] MEDS: NOVOLOG FLEXPEN SC ×2 (12:52→15:33)
[2024-01-22] MEDS: TYLENOL PO ×3 (12:52→15:32)
[2024-01-22] MEDS: LIPITOR PO (12:52)
[2024-01-22] MEDS: NSS 500 IV (12:53)
--- NOTE | 2024-01-22 12:56 | W.PN.UPDATE ---
Update Note
Progress Note Update
IV fluids: 1200
U.O.:� 350
UF:� N/A
Blood:� N/A
Wires:� V-wire
Inotropes:� N/A
Pressors:� Levophed @ 4
Sedatives:� Precedex @ 0.5
Intra-op Events: lasix given for low U.O.
Vital signs: T 96F; HR 66 (SR on telemetry); BP 94/55
�
NEURO: sedated on Precedex, pupils +2mm B/L
RESP: #8OT @24cm> 500/60%/14/5. Lungs clear B/L. 2 mediastinal (10cc on arrival) chest tubes to -20cm suction. Sanguineous drainage
CV: RRR +S1, S2, no S3, no�rub, no murmur. Aquacell to median sternotomy. RIJ w/Santa locked @ 44cm. PA 19/9; CVP 7; C.O XX/CI XX
ABD: round, soft, no BS
EXT: no edema, +2/4 DP pulses B/L, no femoral bruit, left radial A-line intact
: Beltran with clear yellow urine
�
A/P: POD #0 s/p AVR #25mm Inspiris
JAZMYN: EF�55-60%
- wean and extubate
- will need instruction regarding antibiotic prophylaxis for dental and invasive procedures
# Strep [place] aortic valve endocarditis/severe aortic insufficiency
- will need 6 weeks of antibiotics
- will need PICC and ID outpatient follow-up
�
# acute surgical blood loss anemia-expected
- Hb 8.0
- trend CBC/CT drainage
�
# Hyperlipidemia
- resume�Lipitor 20mg HS
[2024-01-22 13:08] LABS: Glucose - Point of Care 150 mg/dl (70-99)
--- NOTE | 2024-01-22 13:37 | PTCARENOTE ---
Patient is waking up. He is following commands and moving all extremities - squeezes hands bilaterally and wiggles toes bilaterally. Nods appropriately to answer questions. PAtient placed on CPAP at 1335, tolerating. RR 12-18, TV 400-500. Oxygen
saturation 98%. Will obtain ABG in 30min.
--- NOTE | 2024-01-22 13:44 | CON.INTV ---
Consultation
Consultation Request
Date/Time Consultation Requested: 01/22/24
Date/Time Consultation Performed: 01/22/24
Performing Provider: Prem
Medical History
-
History of Present Illness:
Patient is a 58 year old M with history of HLD, presents to ER for chills and weakness x 3 weeks. In ER, cultures are growing gram + cocci in chains, was given Vanco/Rocephin per ID and admitted 01/17/24. On w/u, TTE showing AV vegetation confirmed
endocarditis, ID consult obtained. CTS c/s eval obtained and patient underwent AVR 01/22/24. He is postoperatively transferred to CVICU for further management on MV.
Past Medical History
Past Medical History: Hypercholesterolemia
Social History
Tobacco: Non-smoker
Alcohol: None
Drug: None
Family History
Family History: Reviewed & Not Pertinent
Allergies / Home Medications
Allergies
Allergy/AdvReac Type Severity Reaction Status Date / Time
No Known Allergies Allergy Unverified 01/17/24 16:02
Home Medications
Medication Instructions Recorded Confirmed Last Taken Type
acetaminophen 325 mg tablet 650 mg PO Q6HPRN PRN mild pain 01/17/24 01/17/24 Unknown History
(Tylenol)
atorvastatin 20 mg tablet (Lipitor) 20 mg PO DAILY High Cholesterol 01/17/24 01/17/24 01/17/24 History
cyanocobalamin (vitamin B-12) 1,000 mcg PO DAILY Supplement 01/17/24 01/17/24 Unknown History
1,000 mcg tablet
ferrous sulfate 325 mg (65 mg 325 mg PO DAILY Supplement 01/17/24 01/17/24 Unknown History
iron) tablet
Review of Systems
-
Unable to Obtain full review of systems at this time due to: Patient Intubation
Vitals / Labs / Diagnostic Testing
Vital Signs
Temp Pulse Resp BP Pulse Ox
96.5 F L 65 14 96/61 98
03/08/24 13:00 01/22/24 13:15 01/22/24 13:15 01/22/24 13:00 01/22/24 13:16
Lab Data
01/22/24 12:12
Laboratory Results
01/22/24 01/22/24
12:11 12:12
PT 17.3 H
INR 1.43
APTT 30.0
pH 7.37
pCO2 42
pO2 216 H
HCO3 24.3
O2 Delivery Level
Microbiology
01/20/24 06:55 Blood/Venous Blood Culture - Preliminary
No Growth in 48 hours- Final report to follow
01/21/24 05:20 Blood/Venous Blood Culture - Preliminary
No Growth in 24 hours- Final report to follow
01/19/24 05:42 Blood/Venous Blood Culture - Preliminary
No Growth in 72 hours- Final report to follow
01/19/24 05:03 Blood/Venous Blood Culture - Preliminary
No Growth in 72 hours- Final report to follow
01/17/24 17:07 Blood/Venous Blood Culture - Preliminary
Streptococcus species
01/17/24 17:07 Blood/Venous Gram Stain - Final
01/17/24 17:07 Blood/Venous Blood Culture - Preliminary
Streptococcus species
01/17/24 17:07 Blood/Venous Gram Stain - Final
01/17/24 17:07 Urine Urine Culture - Final
NO GROWTH
Diagnostic Testing:
Physical Exam
-
HEENT: Normocephalic, Anicteric and Moist Mucous Membranes
Cardiovascular: S1/S2 and Regular Rhythm
Respiratory: Clear, Non-Labored Respirations and Other (ETT/chest tube)
GI: Soft, Non Distended and Non Tender
Neurology: Other (sedated/intubated)
Skin: Warm, Dry and Good Color
General: Comfortable and Other (NAD)
Assessment
-
Patient is a 58 year old M with history of HLD, presents to ER for chills and weakness x 3 weeks. In ER, cultures are growing gram + cocci in chains, was given Vanco/Rocephin per ID and admitted 01/17/24. On w/u, TTE showing AV vegetation confirmed
endocarditis, ID consult obtained. CTS c/s eval obtained and patient underwent AVR 01/22/24. He is postoperatively transferred to CVICU for further management on MV.
AV infective endocarditis s/p Median sternotomy; Open exposure of R CFV; Excision of infected aortic valve; AVR (#25 Inspiris [facility]) 01/22/24
1.8 cm mobile veg
Moderate to severe aortic regurgitation
Mild to moderate mitral regurgitation
Perioperative MV
Streptococcus bacteremia
Anemia, unknown acute vs chronic, TIFFANIE suspected
Metabolic acidosis, resolved
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
HLD
HTN
Overweight
Migraine history
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
Plan
S/p AVR POD #0
Titrate off pressors per protocol
ECHO reviewed with normal function, veg measuring 1.8 cm noted on AV
PA catheter readings reviewed
Management of chest tubes per primary service
Intubated/sedated, initiate SAT when able
Pain control
RASS goal of 0 to -1
Intubated for procedure, SBT trial when patient able to spontaneously breath
Current vent settings: CPAP wean, doing well
ABG(s) reviewed-adequate
CXR with no obvious opacities/infiltrates, clear, lines in place
Extubate per protocol
Maintain supplement oxygen as needed
No prior history of pulmonary disease, nonsmoker
No prior PFTs for review
Can add nebulizers if needed
Aspiration precautions
Encouraged incentive spirometry, OOB/ambulation/early mobility
Advance diet as tolerated following extubation
GI prophylaxis if indicated for mechanical ventilation >48 hours
Monitor critical I/O's
Beltran/chest tube output
Endocarditis, s/p AVR
Abx per ID, likely for prolonged IV course
Blood cultures reviewed, strep +
Continue to monitor fever/wbc count
Hb/platelets postoperatively stable
Anemia of unknown cause, Iron level low, can transfuse if needed
Trend CBC for now
Can transfuse if indicated for Hb <7, plt <50 in surgical patients
DVT prophylaxis including SCDs
We will follow
Diagnostic Data
Chest X-Ray: 01/22/24- No acute disease of the chest.
01/19/24- No acute cardiopulmonary process.
CT Scan: CTA 01/20/24- IMPRESSION: 1. No evidence of obstructive coronary artery disease. 2. Coronary calcium score of 0. 3. The ejection fraction is 64%. 4. 13.6 mm x 5 mm density associated with aortic valve which likely represents previously
noted aortic vegetation.
CAP 01/16/24- Minimal dependent atelectasis in the posterior lungs. Splenic size is in the upper range of normal. Bilateral benign-appearing renal cysts. Few colonic diverticula with no evidence for diverticulitis.
Echo: JAZMYN 01/22/24- Large vegetation seen on the aortic valve noncoronary cusp.� At least mild to moderate aortic regurgitation.� Valve annulus 23 mm.�Normal left ventricular size and systolic function.� Stage I diastolic dysfunction.�Trivial to mild
mitral regurgitation, no vegetations seen.��The aorta has atheroma less than 5 mm and minimal calcifications.�Trace tricuspid and pulmonic insufficiency.
TTE 01/19/24- Normal left ventricular systolic function. Left ventricular ejection fraction is 55-60%.�There is a 1.8 cm vegetation arising from the non coronary cusp and prolapsing�through the aortic valve. There is moderate aortic
regurgitation.�There is thickening of the tip of the anterior mitral valve but no discrete�vegetation.�No prior study available for comparison.
PFT's:
Reports and relevant images were personally reviewed.
-----
Critical Care time 50 mins -- The patient is admitted for acute critical illness for the treatment of vital organ failure and/or prevention of further life-threatening conditions. Total care includes time spent in review of history, physical exam,
medications, hemodynamic/ventilator parameters, laboratory data, imaging and discussion with house staff, pharmacy, respiratory therapy, factory clerk, and nursing.
--- NOTE | 2024-01-22 13:44 | W.PN.CD ---
Today's Communication / Plan
-
continue post-op care per CTS.
wean off vent.
Impression / Plan
-
Impression: 58M with fever and streptococcal bacteremia. TTE concerning for vegetation.
Plan:
Definite IE
- JAZMYN shows 1.8 cm vegetation with moderate AR. There may be involvement of the anterior mitral valve leaflet as well (thickening without vegetation).
- s/p AVR #[address] Young 01/22/24.
- tele stable NSR, IV Levophed, Precedex, insulin post op.
- ABx as directed by ID.
- Daily EKGs to follow [place] interval, stable.
Anemia - chronic.
- monitor post op.
Moderate to severe aortic regurgitation - s/p AVR as above.
Mild to moderate mitral regurgitation - stable.
HLD - stable on Atorvastatin 20mg daily, continue.
Subjective:
intubated/sedated on CPAP post op.
Physical Exam
Vital Signs/Labs
Vital Signs
Temp Pulse Resp BP Pulse Ox
96.5 F L 65 14 96/61 98
01/22/24 13:00 01/22/24 13:15 01/22/24 13:15 01/22/24 13:00 01/22/24 13:16
01/21/24 01/22/24 01/23/24
06:59 06:59 06:59
Actual Weight 80.4 kg
01/22/24 12:12
PT 17.3 Sec (11.4-14.6) H 01/22/24 12:12
INR 1.43 01/22/24 12:12
APTT 30.0 Sec (23.4-35.0) 01/22/24 12:12
Magnesium 3.0 mg/dl (1.6-2.3) H 01/22/24 12:12
Physical Exam
Constitutional: No acute distress
EENT: Anicteric and Moist mucous membranes
Cardiovascular: Rhythm & rate is regular
Respiratory: Respiratory effort normal (on CPAP per respiratory post op)
GI: Soft, Non tender and Normal bowel sounds
Neuro/Psych: Other (sedated/intubated on CPAP)
Other: Skin (warm, dry )
Data Reviewed
-
Date of Service: January 22, 2024
Medical Decision Making: Reviewed Test Results
EKG: Tracing Personally Visualized and interpreted
Echo: Report Reviewed by me
X-Ray/CT/US/MRI/NUC/PET: Report Reviewed by me
Labs: Labs Reviewed by me
[2024-01-22 14:07] LABS: Glucose - Point of Care 152 mg/dl (70-99)
[2024-01-22 14:13] LABS: B.E. -0.4 mmol/L; HCO3 24.8 mmol/L (21-28); O2 Saturation % 99.5 % (94-98); PCO2 42 mmHg (35-48); PO2 142 mmHg (83-108); Potassium 4.6 mMOL/L (3.5-5.1); pH 7.38 (7.35-7.45)
--- NOTE | 2024-01-22 14:43 | PTCARENOTE ---
ABG results WNL. Followed extubation protocol. Patient extubated by RN and respiratory therapist at 1435 to 6L NC. Oxygen saturation 98%. Patient is still drowsy, but oriented x4. IS 750 with respiratory therapist. Will call to update her
[2024-01-22] MEDS: NSS (PRESERVATIVE FREE) IV (14:53)
[2024-01-22] MEDS: PEPCID IV (14:53)
[2024-01-22 15:02] LABS: Glucose - Point of Care 127 mg/dl (70-99)
[2024-01-22] MEDS: PACERONE PO (15:32)
[2024-01-22 16:18] LABS: Glucose - Point of Care 115 mg/dl (70-99)
[2024-01-22 16:23] LABS: Hematocrit 22.2 % (39.0-52.0); Hemoglobin 7.6 g/dL (13.0-18.0); Platelet Count 262 10^3/uL (130-400)
[2024-01-22 18:08] LABS: Glucose - Point of Care 111 mg/dl (70-99)
--- NOTE | 2024-01-22 20:00 | PTCARENOTE ---
assumed care of pt from previous RN. pt A&Ox4. R IJ cordis w/ swan floated to 42cm. L radial a-line. all lines leveled, zeroed, flushed. PIV intact. temp epicardial v-wires w/ backup settings 40/10/2.5. pacer plugged in, on. CTx2 (mediastinal) to
-20cm wall suction, draining sanguineous drainage. ramos catheter draining clear, yellow urine. SR on tele-monitor, HR 60s. POX 97% on 2 L NC. pt tolerating ice chips and water, no c/o N/V at time of assessment. sternal incision w/ sathish, CDI. R
groin incision site approximated w/ surgi-glue, MEY, stable. see worklist for complete nursing assessment, interventions, VS, and I&Os.
[2024-01-22 20:09] LABS: Glucose - Point of Care 94 mg/dl (70-99)
[2024-01-22] MEDS: NSS (PRESERVATIVE FREE) 8 ML IV (20:42)
[2024-01-22] MEDS: PEPCID 20 MG IV (20:42)
[2024-01-22] MEDS: ROXICODONE 5 MG PO (20:42)
[2024-01-22] MEDS: TYLENOL 650 MG PO (20:43)
[2024-01-22] MEDS: SENOKOT-S 1 TABLET PO (20:43)
[2024-01-22] MEDS: LOPRESSOR PO (21:57)
[2024-01-22] MEDS: PACERONE 200 MG PO (22:10)
[2024-01-22 22:13] LABS: Glucose - Point of Care 112 mg/dl (70-99)
[2024-01-23] VITALS (23 sets, daily range): BP systolic 91–112; BP diastolic 64–78; PULSE 78; O2SAT 95–96; BMI 26.8
--- NOTE | 2024-01-23 | PTCARENOTE ---
assessment remains unchanged. SR on tele-monitor, HR 70s. POX 96% on [address] drainage and U/O WNL.
[2024-01-23] MEDS: TYLENOL 650 MG PO ×6 (00:09→20:51)
[2024-01-23 00:13] LABS: Glucose - Point of Care 104 mg/dl (70-99)
[2024-01-23 02:00] LABS: Glucose - Point of Care 108 mg/dl (70-99)
[2024-01-23 03:23] LABS: Hematocrit 22.5 % (39.0-52.0); Hemoglobin 7.8 g/dL (13.0-18.0); Mean Corp Hgb Conc. 34.7 g/dL (33.0-37.0); Mean Corpuscular Hgb 27.2 pg (27.0-31.0); Mean Corpuscular Volume 78.4 fL (80.0-94.0); Mean Platelet Volume 8.9 fL (7.4-10.4); Platelet Count 202 10^3/uL (130-400); Red Blood Cell Count 2.87 10^6/uL (4.70-6.10); Red Cell Dist. Width 15.8 % (11.5-14.5); White Blood Cell Count 12.3 10^3/uL (4.8-10.8)
[2024-01-23 03:52] LABS: ALT (SGPT) 53 U/L (0-50); AST (SGOT) 48 U/L (17-59); Albumin 3.7 g/dl (3.5-5.0); Alkaline Phosphatase 85 U/L (38-126); Blood Urea Nitrogen 25 mg/dl (9-20); Calcium 8.5 mg/dl (8.4-10.2); Carbon Dioxide 20 mmol/L (22-30); Chloride 106 mmol/L (98-107); Direct Bilirubin 0.1 mg/dl (0.0-0.4); Estimated Creatinine Clearance 49 ml/min; Glucose 93 mg/dl (70-99); Magnesium 2.6 mg/dl (1.6-2.3); Potassium 4.2 mmol/L (3.5-5.1); Sodium 136 mmol/L (135-145); Total Bilirubin 0.7 mg/dl (0.2-1.3); Total Protein 6.2 g/dl (6.3-8.2); eGFR 49.63
[2024-01-23 04:05] LABS: Glucose - Point of Care 91 mg/dl (70-99)
[2024-01-23] MEDS: ROXICODONE 5 MG PO ×5 (04:06→20:51)
--- NOTE | 2024-01-23 04:45 | PTCARENOTE ---
assessment remains unchanged. SR on tele-monitor, HR 70s. POX 95% on [address] drainage and U/O WNL. AM labs reviewed w/ CVPA. cass and a-chrissie d/c'phil.
--- NOTE | 2024-01-23 05:19 | W.PN.CT ---
Addendum entered and electronically signed by Cameron Young MD 01/23/24 09:31:
I saw and examined the patient.
The PA's note was reviewed and I agree with the note.
Comment:
Transfuse 1U PRBC for symptomatic anemia
Maintain CTs today
Maintain ramos today - follow UO, minor EDMUNDO
OOB/IS/ambulate
Will need PICC for 6wks ABX
Original Note:
Today's Communication / Plan
-
-pod #1
-no issues overnight
-CI 2.7, CO 5.4. Drips: insulin only. Levo off @ 8 pm
-CT outout: 2 meds 115/245 in 12 /24 hrs
-got 1 pRBC on 01/21 for h/h 7.6/22.2 - h/h today 7.8/22.5
-Cr trending up - 1.6 today (1.0-1.2 preop)- follow
-maintain Ramos for critical I&O
-held Mg
-deline
-d/c Ramos
-d/c insulin
-continue Abx as per ID- noted recommendation to continue ceftriaxone dose 2g IV q24h x 6 weeks through 03/01/24.�
-will need PICC when close to discharge
-current meds (Ceftriaxone, ASA, Lipitor, Lopressor, Amio, Lasix)
-encourage IS, OOB
�
Assessment / Plan
-
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 Young, pod #1
-Post-JAZMYN w/ normal biventricular function w/o RWMA.� Well-seated AV w/o PVL/AI, mean gradient 6mmHg
- Streptococcus bacteremia (4 sets bcx's)
- Fever/leukocytosis resolved. Repeat blood cultures negative from 01/19/24
- Mild to moderate mitral regurgitation
- Anemia preop- -Low iron level, normal ferritin.
- CT abdomen Chest / Abdomen/ pelvis showed no source of bleeding or anemia other than diverticulosis
- HLD
- NAION
- Hyponatremia preop
- Insomnia
- Mildly elevated LFT preop - follow
- Acute on chronic blood loss anemia - s/p 1 pRBC
- Acute postop atelectasis
- Acute postop hypovolemia with subsequent hypervolemia
- EDMUNDO
Discussed patient care with: Nursing and Care Team
Subjective
Procedure
- s/p AVR (#25 Inspiris RESILIA) on 01/22/[address] Young
-
Date of Service: January 23, 2024
Objective Data
-
PT 17.3 Sec (11.4-14.6) H 01/22/24 12:12
INR 1.43 01/22/24 12:12
APTT 30.0 Sec (23.4-35.0) 01/22/24 12:12
Vital Signs
Vital Signs
Temp Pulse Resp BP Pulse Ox
97.8 F 78 23 110/81 95
01/22/24 23:00 01/22/24 23:00 01/22/24 23:00 01/22/24 23:00 01/22/24 23:00
CT Intake/Output/Weight
01/22/24 01/22/24 01/23/24
06:59 18:59 06:59
Intake Total 480 / 960 1035.3 / 1150.9 115.6 / 1150.9
Output Total 2215 / 2645 430 / 2645
Balance 480 / 960 -1179.7 / -1494.1 -314.4 / -1494.1
SaO2: 95
Physical Exam
-
General: Awake and AOx3
Cardiovascular: Regular rate & rhythm, No Murmurs and No Rub
Respiratory: Decreased Breath Sounds
Sternum: Stable
Incision: Clean, Dry and Dressing Intact
Extremities: No Edema (2+DP b/l)
Abdomen: soft, nondistended, nontender, decreased bowel sounds
Data Reviewed
-
Lab Results: Results Reviewed
Medications: Active Meds Reviewed
Chest X-Ray: Report Reviewed and Image Reviewed
ECG: Report Reviewed and Image Reviewed
[2024-01-23 06:03] LABS: Glucose - Point of Care 88 mg/dl (70-99)
[2024-01-23 07:33] LABS: Glucose - Point of Care 88 mg/dl (70-99)
[2024-01-23] MEDS: NSS IV (07:52)
--- NOTE | 2024-01-23 08:00 | PTCARENOTE ---
Assumed care of patient. Pt assessed while he was sitting in the chair. Pt alert and oriented x4. Flat affect noted. Pt c/o 2/10 sternal pain. Denies nausea & shortness of breath. CALDWELL with equal strength in all extremities. NSR on tele with rates in
the 70s-80s. Heart tones audible. BP stable 91/68. Bilateral radial and DP pulses palpable. No edema noted. POX 95% on RA. Lungs diminished in the bases. No cough noted. IS encouraged-1000mL achieved. Mediastinal chest tubes x2 y-sited to 1 atrium
to -20cm suction draining serosanguineous fluid. No air leak, crepitus noted. Abdomen soft, round, nontender. Hypoactive BS. Beltran catheter intact draining adequate amounts of clear yellow urine. Sternal incision covered with Aquacel-CDI. Chest tube
dressing CDI. Right groin incision approximated with skin glue-ROLL OFF DRIVER. Right IJ cordis intact infusing NSS KVO. Right hand 18g PIV intact with insulin gtt infusing per Critical Care Glycemic Protocol. Right AC PIV intact. See MAR for medication
administration. See worklist for complete nursing assessment. Plan of care reviewed and pt in agreement.
[2024-01-23] MEDS: STERILE WATER FOR INJECTION 20 ML IV (08:08)
[2024-01-23] MEDS: LOW STRENGTH ASPIRIN 81 MG PO (08:09)
[2024-01-23] MEDS: ROCEPHIN 2000 MG IV (08:09)
[2024-01-23] MEDS: NOVOLOG FLEXPEN 4 UNITS SC (08:09)
[2024-01-23] MEDS: SENOKOT-S 1 TABLET PO ×2 (08:09→19:18)
[2024-01-23] MEDS: LIPITOR 20 MG PO (08:09)
[2024-01-23] MEDS: PACERONE 200 MG PO ×3 (08:10→20:52)
[2024-01-23] MEDS: BACTROBAN 2% OINTMENT 1 APPLIC NASAL ×2 (08:10→19:19)
[2024-01-23] MEDS: FLUSH (NSS) 1 FLUSH IV (08:14)
[2024-01-23] MEDS: ROCEPHIN IV (08:27)
[2024-01-23] MEDS: LOPRESSOR PO (08:28)
[2024-01-23] MEDS: STERILE WATER FOR INJECTION IV (08:28)
[2024-01-23 09:41] LABS: Glucose - Point of Care 120 mg/dl (70-99)
--- NOTE | 2024-01-23 09:43 | PTCARENOTE ---
1unit PRBC infusing per orders.
--- NOTE | 2024-01-23 10:47 | W.PN.INTV ---
Today's Communication / Plan
Recommendations
Doing well post extubation, stable on room air
Chest tube per team
Insulin gtt remains on per protocol, transition to SQ per team
Abx per ID
Encouraged IS, ambulation
Transfer to tele when off gtts, we will sign off upon transfer
Assessment
-
Patient is a 58 year old M with history of HLD, presents to ER for chills and weakness x 3 weeks. In ER, cultures are growing gram + cocci in chains, was given Vanco/Rocephin per ID and admitted 01/17/24. On w/u, TTE showing AV vegetation confirmed
endocarditis, ID consult obtained. CTS c/s eval obtained and patient underwent AVR 01/22/24. He is postoperatively transferred to CVICU for further management on MV.
AV infective endocarditis s/p Median sternotomy; Open exposure of R CFV; Excision of infected aortic valve; AVR (#25 Inspiris RESILIA) 01/22/24
1.8 cm mobile veg
Moderate to severe aortic regurgitation
Mild to moderate mitral regurgitation
Perioperative MV
Streptococcus bacteremia
Anemia, unknown acute vs chronic, TIFFANIE suspected
Metabolic acidosis, resolved
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
HLD
HTN
Overweight
Migraine history
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
Plan
S/p AVR POD #1
Off pressors per protocol
ECHO reviewed with normal function, veg measuring 1.8 cm noted on AV
PA catheter readings reviewed
Management of chest tubes per primary service
Pain control
RASS goal of 0 to -1
Intubated for procedure, extubated and doing well
ABG(s) reviewed-adequate
CXR with stable postop changes
Now weaned to room air
No prior history of pulmonary disease, nonsmoker
No prior PFTs for review
Can add nebulizers if needed
Aspiration precautions
Encouraged incentive spirometry, OOB/ambulation/early mobility
Advance diet as tolerated following extubation
GI prophylaxis if indicated for mechanical ventilation >48 hours
Monitor critical I/O's
Beltran/chest tube output
Endocarditis, s/p AVR
Abx per ID, likely for prolonged IV course
Blood cultures reviewed, strep +
Continue to monitor fever/wbc count
Hb/platelets postoperatively stable
Anemia of unknown cause, Iron level low, can transfuse if needed
Trend CBC for now
Can transfuse if indicated for Hb <7, plt <50 in surgical patients
DVT prophylaxis including SCDs
Insulin gtt remains until noon
Can transition to SQ per team
Diagnostic Data
Chest X-Ray: 01/22/24- No acute disease of the chest.
01/19/24- No acute cardiopulmonary process.
CT Scan: CTA 01/20/24- IMPRESSION: 1. No evidence of obstructive coronary artery disease. 2. Coronary calcium score of 0. 3. The ejection fraction is 64%. 4. 13.6 mm x 5 mm density associated with aortic valve which likely represents previously
noted aortic vegetation.
CAP 01/16/24- Minimal dependent atelectasis in the posterior lungs. Splenic size is in the upper range of normal. Bilateral benign-appearing renal cysts. Few colonic diverticula with no evidence for diverticulitis.
Echo: JAZMYN 01/22/24- Large vegetation seen on the aortic valve noncoronary cusp.� At least mild to moderate aortic regurgitation.� Valve annulus 23 mm.�Normal left ventricular size and systolic function.� Stage I diastolic dysfunction.�Trivial to mild
mitral regurgitation, no vegetations seen.��The aorta has atheroma less than 5 mm and minimal calcifications.�Trace tricuspid and pulmonic insufficiency.
TTE 01/19/24- Normal left ventricular systolic function. Left ventricular ejection fraction is 55-60%.�There is a 1.8 cm vegetation arising from the non coronary cusp and prolapsing�through the aortic valve. There is moderate aortic
regurgitation.�There is thickening of the tip of the anterior mitral valve but no discrete�vegetation.�No prior study available for comparison.
PFT's:
Reports and relevant images were personally reviewed.
-----
Critical Care time 32 mins -- The patient is admitted for acute critical illness for the treatment of vital organ failure and/or prevention of further life-threatening conditions. Total care includes time spent in review of history, physical exam,
medications, hemodynamic/ventilator parameters, laboratory data, imaging and discussion with house staff, pharmacy, respiratory therapy, technical aid, and nursing.
Subjective Dataa
Subjective Data
Date of Service:
Date of Service: January 23, 2024
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
Subjective:
doing well post extubation
stable on room air
some pain, could not sleep overnight
sitting in chair
Objective Data
Data Reviewed
Vital Signs / I&O / Oxygen:
Vital Signs
Temp Pulse Resp BP Pulse Ox
97.2 F 71 16 109/74 95
01/23/24 08:00 01/23/24 10:00 01/23/24 08:00 01/23/24 10:00 01/23/24 10:00
Intake and Output
01/22/24 01/23/24 01/24/24
06:59 06:59 07:59
Intake Total 960 / 960 1279.1 / 1279.1 533.9 / 533.9
Output Total 2995 / 2995 150 / 150
Balance 960 / 960 -1715.9 / -1715.9 383.9 / 383.9
SaO2 [SIMV] 100
SaO2 95
Nasal Cannula flow liters per 2
minute
Physical Exam
General: Comfortable, Pain and Other (NAD)
HEENT: Normocephalic, Anicteric and Moist Mucous Membranes
Cardiovascular: S1-S2 and Regular Rhythm
Respiratory: Clear, Non-Labored Respirations and Chest Tube
GI: Soft, Non Distended and Non Tender
Neurology: Awake, Alert, Oriented, AO x 3 and No Motor Deficits
Skin: Warm, Dry and Good Color
Labs/Micro/Reports
Lab Data
01/23/24 03:17
01/23/24 03:17
Laboratory Results
01/22/24 01/22/24 01/22/24
12:11 12:12 14:03
PT 17.3 H
INR 1.43
APTT 30.0
pH 7.37 7.38
pCO2 42 42
pO2 216 H 142 H
HCO3 24.3 24.8
O2 Delivery Level Not Reportable
Microbiology
01/20/24 06:55 Blood/Venous Blood Culture - Preliminary
No Growth in 72 hours- Final report to follow
01/21/24 05:20 Blood/Venous Blood Culture - Preliminary
No Growth in 48 hours- Final report to follow
01/19/24 05:42 Blood/Venous Blood Culture - Preliminary
No Growth in 4 days- Final report to follow
01/19/24 05:03 Blood/Venous Blood Culture - Preliminary
No Growth in 4 days- Final report to follow
01/22/24 09:32 Heart Gram Stain - Preliminary
01/17/24 17:07 Blood/Venous Blood Culture - Preliminary
Streptococcus species
01/17/24 17:07 Blood/Venous Gram Stain - Final
01/17/24 17:07 Blood/Venous Blood Culture - Preliminary
Streptococcus species
01/17/24 17:07 Blood/Venous Gram Stain - Final
--- NOTE | 2024-01-23 11:43 | W.PN.CD ---
Today's Communication / Plan
-
- PRBC today
- OOB to chair
- IS.
Impression / Plan
-
Impression: 58M with fever and streptococcal bacteremia. TTE concerning for vegetation.
Plan:
Definite IE
- JAZMYN shows 1.8 cm vegetation with moderate AR. There may be involvement of the anterior mitral valve leaflet as well (thickening without vegetation).
- s/p AVR #[address] Young 01/22/24.
- tele stable NSR, IV Levophed, Precedex, insulin post op.
- ABx as directed by ID.
- Daily EKGs to follow [place] interval, stable.
Anemia - chronic.
-s/p PRBC on 01/21
- Hgb is staying around 7.6-7.8
- Transfuse today bhavin with EDMUNDO
EDMUNDO
- Cr 1.6 today from, baseline 1.2
Moderate to severe aortic regurgitation - s/p AVR as above.
Mild to moderate mitral regurgitation - stable.
HLD - stable on Atorvastatin 20mg daily, continue.
Subjective:
extubated and OOB to chair.
Physical Exam
Vital Signs/Labs
Vital Signs
Temp Pulse Resp BP Pulse Ox
97.2 F 71 16 109/74 95
01/23/24 08:00 01/23/24 10:00 01/23/24 08:00 01/23/24 10:00 01/23/24 10:00
01/22/24 01/23/24 01/24/24
06:59 06:59 07:59
Actual Weight 80.4 kg 79.9 kg
01/23/24 03:17
01/23/24 03:17
PT 17.3 Sec (11.4-14.6) H 01/22/24 12:12
INR 1.43 01/22/24 12:12
APTT 30.0 Sec (23.4-35.0) 01/22/24 12:12
Magnesium 2.6 mg/dl (1.6-2.3) H 01/23/24 03:17
Physical Exam
Constitutional: No acute distress
EENT: Anicteric and Moist mucous membranes
Cardiovascular: Rhythm & rate is regular and JVD pressure is normal
Respiratory: Respiratory effort normal and Rhonchi Present
GI: Soft, Non tender and Normal bowel sounds
Neuro/Psych: Alert, Oriented and AO x 3
Other: Skin
Data Reviewed
-
Date of Service: January 23, 2024
Medical Decision Making: Reviewed Test Results, Independent Historian Assessment, Test Interpretation and Review of Case with other Provider
EKG: Tracing Personally Visualized and interpreted
Echo: Report Reviewed by me
X-Ray/CT/US/MRI/NUC/PET: Image Personally Visualized and interpreted
Labs: Labs Reviewed by me
Old Records: Reviewed
Critical Care Time (in minutes): 40
[2024-01-23 12:01] LABS: Glucose - Point of Care 102 mg/dl (70-99)
[2024-01-23] MEDS: NOVOLOG FLEXPEN SC (12:08)
[2024-01-23] MEDS: FLEXERIL 10 MG PO (12:09)
--- NOTE | 2024-01-23 12:15 | PTCARENOTE ---
Pt reassessed. VSS. NSR with rates in the 80s. BP stable. POX 93% on RA. CT output WNL. Assisted pt back to bed with 1 assist. Insulin gtt d/c per CT [employer] SUPER[employer]OR orders. Chest tube dressing changed. V-wire thresholds completed for inappropriate pacing
spikes. Set to 40//. No other acute changes from previous assessment.
--- NOTE | 2024-01-23 12:37 | W.PN.ANS.POP ---
Anesthesia Post Operative
- Anesthesia Post Op Note
Vital Signs Stable-See Nursing Note: Yes
Airway Patent: Yes
Adequate Pain Control: Yes
Change in Mental Status: No
Current Postoperative Nausea & Vomiting: No
Anesthesia Complications: No
General Anesthetic Recall: No
Unplanned Admission: No
Post Op Hydration Adequate: Yes
[2024-01-23] MEDS: PROTONIX 40 MG PO (16:09)
--- NOTE | 2024-01-23 16:15 | PTCARENOTE ---
Pt reassessed. VSS. Resting comfortably in bed. CT output WNL. Beltran draining adequate UO. No other acute changes from previous assessment.
--- NOTE | 2024-01-23 16:52 | PTCARENOTE ---
Ambulated 75' in the vazquez. Pt tolerated. Assisted to the chair. Awaiting dinner.
[2024-01-23] MEDS: FEOSOL 325 MG PO (19:19)
--- NOTE | 2024-01-23 19:51 | PTCARENOTE ---
assumed care of pt from previous RN. pt A&Ox4, resting in chair at time of assessment. NSR on tele-monitor, HR 70s-80s. temp epicardial v-wires, backup settings VVI 40/04/16, pacer plugged in, on. palpable peripheral pulses. no edema noted. POX 93% on
RA. CTx2 (mediastinal), to -20cm wall suction, draining serosanguineous drainage. no air leaks noted. Beltran catheter draining clear, yellow urine. sternal incision w/ aquacell, CDI. R groin incision approximated w/ surgi-glue, MEY. CT dressing
intact. R IJ cordis w/ KVO. PIV x2 intact. pt assisted back to bed after assessment completed. see worklist for complete nursing assessment, interventions, VS, and I&Os.
[2024-01-24] VITALS (8 sets, daily range): BP systolic 107–135; BP diastolic 78–94; BMI 27.1
--- NOTE | 2024-01-24 | PTCARENOTE ---
assessment remains unchanged. VSS. NSR on tele-monitor. HR 70s-80s. POX 96% on RA. minimal CT drainage. U/O adequate. no c/o pain at this time.
[2024-01-24] MEDS: TYLENOL PO (00:41)
--- NOTE | 2024-01-24 04:00 | PTCARENOTE ---
assessment remains unchanged. VSS. NSR on tele-monitor. HR 70s-80s. POX 93% on RA. minimal CT drainage. U/O adequate. AM labs collected and sent.
[2024-01-24] MEDS: TYLENOL 650 MG PO ×5 (04:13→19:12)
[2024-01-24] MEDS: FLEXERIL 10 MG PO (04:14)
[2024-01-24 04:28] LABS: Hematocrit 25.2 % (39.0-52.0); Hemoglobin 8.7 g/dL (13.0-18.0); Mean Corp Hgb Conc. 34.5 g/dL (33.0-37.0); Mean Corpuscular Hgb 27.7 pg (27.0-31.0); Mean Corpuscular Volume 80.3 fL (80.0-94.0); Mean Platelet Volume 9.2 fL (7.4-10.4); Platelet Count 218 10^3/uL (130-400); Red Blood Cell Count 3.14 10^6/uL (4.70-6.10); Red Cell Dist. Width 16.3 % (11.5-14.5); White Blood Cell Count 10.5 10^3/uL (4.8-10.8)
[2024-01-24 05:12] LABS: Blood Urea Nitrogen 29 mg/dl (9-20); Calcium 8.4 mg/dl (8.4-10.2); Carbon Dioxide 24 mmol/L (22-30); Chloride 103 mmol/L (98-107); Estimated Creatinine Clearance 71 ml/min; Glucose 92 mg/dl (70-99); Potassium 3.7 mmol/L (3.5-5.1); Sodium 135 mmol/L (135-145); eGFR > 60.00
--- NOTE | 2024-01-24 05:16 | W.PN.CT ---
Addendum entered and electronically signed by Cameron Young MD 01/24/24 10:35:
I saw and examined the patient.
The PA's note was reviewed and I agree with the note.
Comment:
Creat back to baseline
Doing well
D/C CT
D/C Beltran
OOB/IS/ambulate
PICC for IV ABX
D/C planning for hopefully tomorrow
Original Note:
Today's Communication / Plan
-
-pod #2
-no issues overnight
-CT outout: 2 meds / in 12 /24 hrs
-got 1 pRBC on 01/21 and 1 pRBC on 01/22-�h/h today 8.7/25.2
-Cr trending back down 1.6->1.1
-continue Abx as per ID- noted recommendation to continue ceftriaxone dose 2g IV q24h x 6 weeks through 03/01/24.�
-will need PICC when close to discharge
-current meds (Ceftriaxone, ASA, Lipitor, Lopressor, Amio, Lasix)
-encourage IS, OOB, ambulate
�
Assessment / Plan
-
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 Young, pod #2
-Post-JAZMYN w/ normal biventricular function w/o RWMA.� Well-seated AV w/o PVL/AI, mean gradient 6mmHg
- Streptococcus bacteremia (4 sets bcx's)
- Fever/leukocytosis resolved. Repeat blood cultures negative from 01/19/24
- Mild to moderate mitral regurgitation
- Anemia preop- -Low iron level, normal ferritin.
- CT abdomen Chest / Abdomen/ pelvis showed no source of bleeding or anemia other than diverticulosis
- HLD
- NAION
- Hyponatremia preop
- Insomnia
- Mildly elevated LFT preop - follow
- Acute on chronic blood loss anemia - s/p 1 pRBC
- Acute postop atelectasis
- Acute postop hypovolemia with subsequent hypervolemia
- EDMUNDO
Subjective
Procedure
- s/p AVR (#25 Inspiris RESILIA) on 01/22/[address] Young
-
Date of Service: January 24, 2024
No overnight events. s/p 1 u prbc yesterday. delined.
Objective Data
-
Lab Results
01/24/24 04:08
01/24/24 04:08
PT 17.3 Sec (11.4-14.6) H 01/22/24 12:12
INR 1.43 01/22/24 12:12
APTT 30.0 Sec (23.4-35.0) 01/22/24 12:12
Vital Signs
Vital Signs
Temp Pulse Resp BP Pulse Ox
97.4 F 84 18 135/91 93
01/24/24 04:00 01/24/24 04:04 01/24/24 04:00 01/24/24 04:04 01/24/24 04:00
CT Intake/Output/Weight
01/23/24 01/23/24 01/24/24
06:59 18:59 07:59
Intake Total 243.8 / 1279.1 1098.5 / 1198.5 100 / 1198.5
Output Total 780 / 2995 435 / 780 345 / 780
Balance -536.2 / -1715.9 663.5 / 418.5 -245 / 418.5
SaO2: 93
Physical Exam
-
General: Awake, Oriented and AOx3
Cardiovascular: Regular rate & rhythm, No Murmurs and No Rub
Respiratory: Clear and Equal
Sternum: Stable
Incision: Clean, Dry and Intact
Extremities: No Edema
Data Reviewed
-
Lab Results: Results Reviewed
Medications: Active Meds Reviewed
Chest X-Ray: Report Reviewed
ECG: Report Reviewed
[2024-01-24] MEDS: KCL 40 MEQ PO (05:58)
--- NOTE | 2024-01-24 08:00 | PTCARENOTE ---
Resumed care of patient. Pt assessed while he was sitting in the chair. Pt a&ox4. Pt denies pain, shortness of breath, and nausea. CALDWELL with equal strength throughout. NSR on tele with rates in the 80s. BP stable. Heart tones audible. Epicardial
v-wire to back up 40/6/, no pacing noted. POX 95% on RA. Lungs clear throughout. No cough noted. IS encouraged-1000ml achieved. Mediastinal CTx2 to -20cm suction draining serosanguineous fluid. No air leak or crepitus. Abdomen soft, round,
nontender. +BS. Pt reports passing gas. Beltran intact draining adequate amounts of clear yellow urine. Sternal incision covered with Aquacel-CDI. Right groin incision approximated with skin glue. CT dressing CDI. Right IJ cordis intact. Right hand
18g PIV and Right AC PIV intact. See MAR for medication administration. See worklist for complete nursing assessment. Plan of care reviewed and patient in agreement.
[2024-01-24] MEDS: STERILE WATER FOR INJECTION 20 ML IV (08:25)
[2024-01-24] MEDS: ROCEPHIN 2000 MG IV (08:25)
[2024-01-24] MEDS: BACTROBAN 2% OINTMENT 1 APPLIC NASAL ×2 (08:25→19:11)
[2024-01-24] MEDS: PROTONIX 40 MG PO (08:26)
[2024-01-24] MEDS: FEOSOL 325 MG PO ×2 (08:26→19:11)
[2024-01-24] MEDS: VITAMIN C 500 MG PO (08:26)
[2024-01-24] MEDS: NSS 500 IV (08:26)
[2024-01-24] MEDS: LOW STRENGTH ASPIRIN 81 MG PO (08:26)
[2024-01-24] MEDS: SENOKOT-S 1 TABLET PO ×2 (08:26→19:11)
[2024-01-24] MEDS: PACERONE 200 MG PO ×3 (08:26→22:06)
[2024-01-24] MEDS: LIPITOR 20 MG PO (08:26)
[2024-01-24] MEDS: FLUSH (NSS) 1 FLUSH IV (08:27)
--- NOTE | 2024-01-24 09:00 | PTCARENOTE ---
Pt assisted back to bed with minimal 1 assist. Mediastinal chest tubes x2 d/c per orders. Sutures tied, Vasaline gauze, gauze, and ABD placed. Epicardial v-wire insulated per orders. Beltran catheter d/c per orders. Pt tolerated. Pt then ambulated in
the vazquez 150', tolerated. assisted back to the chair.
--- NOTE | 2024-01-24 09:52 | W.PN.CD ---
Today's Communication / Plan
-
- OOB and ambulate
- IS
- Picc line in AM for home antibiotics.
Impression / Plan
-
Impression: 58M with fever and streptococcal bacteremia. TTE concerning for vegetation.
Plan:
Definite IE
- JAZMYN shows 1.8 cm vegetation with moderate AR. There may be involvement of the anterior mitral valve leaflet as well (thickening without vegetation).
- s/p AVR #[address] Young 01/22/24.
- tele stable NSR,
- Off pressors.
- ABx as directed by ID.
- Daily EKGs to follow [place] interval, stable.
- Picc line and home antibiotics.
Anemia - chronic.
- s/p PRBC on 01/21
- Hgb is sup to 8.7
- s/p Transfused
EDMUNDO
- Cr 1.6 but is now at 1.1 baseline with transfusion.
Moderate to severe aortic regurgitation - s/p AVR as above.
Mild to moderate mitral regurgitation - stable.
HLD - stable on Atorvastatin 20mg daily, continue.
Subjective:
extubated and OOB to chair.
Feeling better.
Physical Exam
Vital Signs/Labs
Vital Signs
Temp Pulse Resp BP Pulse Ox
97.9 F 80 16 122/94 95
01/24/24 08:00 01/24/24 09:00 01/24/24 08:00 01/24/24 08:21 01/24/24 08:21
01/23/24 01/24/24 01/25/24
05:59 06:59 06:59
Actual Weight
01/24/24 04:08
01/24/24 04:08
PT 17.3 Sec (11.4-14.6) H 01/22/24 12:12
INR 1.43 01/22/24 12:12
APTT 30.0 Sec (23.4-35.0) 01/22/24 12:12
Magnesium 2.6 mg/dl (1.6-2.3) H 01/23/24 03:17
Physical Exam
Constitutional: No acute distress and Comfortable
EENT: Anicteric and Moist mucous membranes
Cardiovascular: Rhythm & rate is regular, Pedal edema present and JVD present
Respiratory: Respiratory effort normal, Lungs clear to auscul. and Wheeze Absent
GI: Soft and Non tender
Neuro/Psych: Alert, Oriented, AO x 3 and Motor deficits absent
Data Reviewed
-
Date of Service: January 24, 2024
Medical Decision Making: Reviewed Test Results, Independent Historian Assessment and Review of Case with other Provider
EKG: Tracing Personally Visualized and interpreted
Echo: Report Reviewed by me
Labs: Labs Reviewed by me
Old Records: Reviewed
--- NOTE | 2024-01-24 10:12 | W.PN.ID1 ---
Date of Service
Date of Service: January 24, 2024
Today's Communication
Continue ceftriaxone.
Assessment / Plan
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
# Streptococcus bacteremia (4 sets bcx's)
# Fever/leukocytosis resolved
- Repeat blood cultures negative from 01/19/24 onward
- Micro unable to identify Strep -> sent out to [facility]. Suspect NVS
- s/p valve surgery 01/21
- follow valve culture: pending
- Continue ceftriaxone dose 2g IV q24h x 6 weeks through 03/01/24.
- Infusion sheet submitted to case management specialist and placed in chart.
- Will need PICC when close to discharge.
Chief Complaint
-: Bacteremia and Other (Endocarditis)
Subjective / Review of Systems
Patient seen and examined. No specific complaints today other than feeling quite fatigued. Pain is controlled. Tubes have been removed.
Review of Systems: No Fever and No Chills
Vital Signs / Physical Exam
Vital Signs
Vital Signs
Temp Pulse Resp BP Pulse Ox
97.9 F 80 16 122/94 95
01/24/24 08:00 01/24/24 09:00 01/24/24 08:00 01/24/24 08:21 01/24/24 08:21
Physical Exam
Constitutional: Comfortable and Non-toxic
Eyes: Sclera Anicteric
Cardiovascular: Regular Rate
Pulmonary: Non Labored
Gastrointestinal: Non Distended
Wound: Other (Anterior chest wall dressing in place. No strikethrough.)
Neurological: Awake and Alert
Psychological: Calm
Objective Data
Lab Data
Lab Results
01/24/24 04:08
01/24/24 04:08
PT 17.3 Sec (11.4-14.6) H 01/22/24 12:12
INR 1.43 01/22/24 12:12
APTT 30.0 Sec (23.4-35.0) 01/22/24 12:12
Estimated Creat Clear 71 ml/min 01/24/24 04:08
Lactic Acid Cancelled 01/17/24 20:45
Total Bilirubin 0.7 mg/dl (0.2-1.3) 01/23/24 03:17
AST 48 U/L (17-59) 01/23/24 03:17
ALT 53 U/L (0-50) H 01/23/24 03:17
Alkaline Phosphatase 85 U/L (38-126) 01/23/24 03:17
Most recent labs reviewed.
Micro Results:
01/20/24 06:55 Blood Culture - Preliminary
Blood/Venous No Growth in 4 days- Final report to follow
01/21/24 05:20 Blood Culture - Preliminary
Blood/Venous No Growth in 72 hours- Final report to follow
01/19/24 05:42 Blood Culture - Final
Blood/Venous No Growth - Final Report
01/19/24 05:03 Blood Culture - Final
Blood/Venous No Growth - Final Report
01/22/24 09:32 Tissue Culture - Preliminary
Heart No Growth After 18-24 Hours
Gram Stain - Preliminary
01/17/24 17:07 Blood Culture - Preliminary
Blood/Venous Streptococcus species
Gram Stain - Final
01/17/24 17:07 Blood Culture - Preliminary
Blood/Venous Streptococcus species
Gram Stain - Final
01/17/24 17:07 Urine Culture - Final
Urine NO GROWTH
--- NOTE | 2024-01-24 12:15 | PTCARENOTE ---
Pt reassessed. VSS. POX 96% on RA. Surgical sites stable. Ambulated 300' in the vazquez w/o assistance. Pt tolerated.
--- NOTE | 2024-01-24 15:33 | PTCARENOTE ---
Pt reassessed. VSS. PICC placed by IV team. pt resting in bed comfortably. Denies pain. No other acute changes from previous assessment.
--- NOTE | 2024-01-24 15:47 | PTCARENOTE ---
Right IJ cordis d/c per orders post CXR to confirm PICC placement. Pt tolerated. Bladder scanned for 329mL, voided 325ml noé urine. Ambulated 300' in the vazquez and now sitting in the chair. Pt tolerated.
--- NOTE | 2024-01-24 19:00 | PTCARENOTE ---
report received from previous RN, walking rounds done. pt in chair, AAOx4. pt c/o mild sternal incision pain. PO tylenol given. VSS. SR/ST on monitor, HR 80's-100's. POX 97% on room air. SL RUE PICC intact and patent. epicardial v.wires intact and
insulated. all surgical sites stable. see worklist for full assessment, VS, and interventions. pt assisted into bed and resting comfortably.
[2024-01-24] MEDS: LOPRESSOR 12.5 MG PO (19:11)
[2024-01-25] VITALS (11 sets, daily range): BP systolic 100–143; BP diastolic 75–93; PULSE 80; O2SAT 94–100; BMI 26.9
[2024-01-25] MEDS: TYLENOL PO ×2 (00:45→05:03)
--- NOTE | 2024-01-25 02:24 | W.PN.CT ---
Today's Communication / Plan
-
HGB stable today �HGB =9.7
Maintain RUL PICC for antibiotics for AV strep endocarditis (ceftriaxone dose 2g IV q24h x 6 weeks through 03/01/24).�
Possible DC to home�
Current meds (Ceftriaxone, ASA, Lipitor, Lopressor, Amio, Lasix)�
Encourage IS, OOB, ambulate�
Assessment / Plan
-
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 Young, pod #3
-Post-JAZMYN w/ normal biventricular function w/o RWMA.� Well-seated AV w/o PVL/AI, mean gradient 6mmHg
- Streptococcus bacteremia (4 sets bcx's)
- Fever/leukocytosis resolved. Repeat blood cultures negative from 01/19/24
- Mild to moderate mitral regurgitation
- Anemia preop- -Low iron level, normal ferritin.
- CT abdomen Chest / Abdomen/ pelvis showed no source of bleeding or anemia other than diverticulosis
- HLD
- NAION
- Hyponatremia preop
- Insomnia
- Mildly elevated LFT preop - follow
- Acute on chronic blood loss anemia - s/p 1 pRBC
- Acute postop atelectasis
- Acute postop hypovolemia with subsequent hypervolemia
- EDMUNDO
Subjective
Procedure
- s/p AVR (#25 Inspiris RESILIA) on 01/22/[address] Young
-
Date of Service: January 25, 2024
Objective Data
-
PT 17.3 Sec (11.4-14.6) H 01/22/24 12:12
INR 1.43 01/22/24 12:12
APTT 30.0 Sec (23.4-35.0) 01/22/24 12:12
Vital Signs
Vital Signs
Temp Pulse Resp BP Pulse Ox
98.2 F 75 18 109/84 94
01/25/24 00:31 01/25/24 00:31 01/24/24 19:11 01/25/24 00:31 01/25/24 00:31
CT Intake/Output/Weight
01/24/24 01/24/24 01/25/24
06:59 18:59 06:59
Intake Total 320 / 560 240 / 560
Output Total 420 / 420
Balance -100 / 140 240 / 140
SaO2: 94
Physical Exam
-
General: Awake
Cardiovascular: Regular rate & rhythm
Respiratory: Clear
Sternum: Stable
Incision: Clean, Dry and Intact
Extremities: No Edema
--- NOTE | 2024-01-25 05:00 | PTCARENOTE ---
pt VSS, no changes in assessment. NSR. POX 96% on room air. AM labs drawn and sent. AM CXR done. pt sleeping between care.
[2024-01-25 06:00] LABS: Hematocrit 28.2 % (39.0-52.0); Hemoglobin 9.7 g/dL (13.0-18.0); Mean Corp Hgb Conc. 34.4 g/dL (33.0-37.0); Mean Corpuscular Volume 81.5 fL (80.0-94.0); Mean Platelet Volume 9.1 fL (7.4-10.4); Platelet Count 247 10^3/uL (130-400); Red Blood Cell Count 3.46 10^6/uL (4.70-6.10); Red Cell Dist. Width 17.2 % (11.5-14.5); White Blood Cell Count 8.2 10^3/uL (4.8-10.8)
[2024-01-25 06:18] LABS: Blood Urea Nitrogen 19 mg/dl (9-20); Calcium 8.7 mg/dl (8.4-10.2); Carbon Dioxide 24 mmol/L (22-30); Chloride 107 mmol/L (98-107); Estimated Creatinine Clearance 71 ml/min; Glucose 88 mg/dl (70-99); Potassium 4.4 mmol/L (3.5-5.1); Sodium 135 mmol/L (135-145); eGFR > 60.00
--- NOTE | 2024-01-25 07:00 | PTCARENOTE ---
Bedside walking rounds report received: aptient seen on rounds OOB in chair on room air. NSR with 1st degree avb resting heart rate in the 80's. Beta kulwant increased. Awake alert and oriented x 3. Denies significant pain. patient instruction
reinforce with right arm PICC line (placed by IV team on 01/23) care flush technique, 'scrubbing the hub' with alcohol swabs. Possible dc later this am or this afternoon.
[2024-01-25] MEDS: BACTROBAN 2% OINTMENT 1 APPLIC NASAL (08:03)
[2024-01-25] MEDS: VITAMIN C 500 MG PO (08:06)
[2024-01-25] MEDS: FEOSOL 325 MG PO (08:06)
[2024-01-25] MEDS: PACERONE 200 MG PO (08:06)
[2024-01-25] MEDS: LOW STRENGTH ASPIRIN 81 MG PO (08:06)
[2024-01-25] MEDS: ROCEPHIN 2000 MG IV (08:07)
[2024-01-25] MEDS: PROTONIX 40 MG PO (08:07)
[2024-01-25] MEDS: LIPITOR 20 MG PO (08:07)
[2024-01-25] MEDS: STERILE WATER FOR INJECTION 20 ML IV (08:08)
[2024-01-25] MEDS: SENOKOT-S 1 TABLET PO (08:08)
[2024-01-25] MEDS: LOPRESSOR PO (08:09)
[2024-01-25] MEDS: TOPROL XL 37.5 MG PO (08:09)
[2024-01-25] MEDS: NSS IV (08:11)
--- NOTE | 2024-01-25 08:18 | W.DCSUMMARY ---
Discharge Summary
Discharge Data
Date of Admission: 01/17/24
Date of Discharge: 01/25/24
Total time spent discharging patient (in min): 35
-
Pending Results: No
Hospital Course
Primary care physician:
Dr. Vineet Chin
Outpatient bottle blowing machine tender:
Dr. Giron
Inpatient consultants:
CBC, logistics administrator, infectious disease
Procedures:
1. Aortic valve replacement (#25 Inspiris RESILIA)
Primary Diagnosis:
1. Aortic valve endocarditis
Secondary Diagnoses:
1. Acute blood loss anemia
2. Hypertension
3. Hyperlipidemia
4. Acute kidney injury
HPI: 58-year-old male with past medical history of hypertension and hyperlipidemia presented to [place]'s emergency room on 01/16 with fever, chills, and weakness for 3 weeks. He was found to have aortic valve endocarditis and was taken to the OR
with Dr. Young.
Hospital course:
Patient was admitted to [facility] on 01/16 with fever chills and weakness. Blood cultures revealed Streptococcus bacteremia and was found to have Streptococcus aortic valve infective endocarditis. He was started on ceftriaxone and was
taken to the OR on 01/22/[address] Young for an aortic valve replacement. Patient returned to the CVICU on Levophed, insulin, and Precedex infusions. He was extubated by 1435. He received 2 albumins and hemoglobin was 7.6 and was transfused
with 1 unit of PRBCs. Levophed was weaned off by 8 PM on postop day 0. On 01/22 postop day 1, patient's arterial line and Andale-Lucrecia catheter was removed. Patient's creatinine was 1.6 and hemoglobin was 7.8, therefore, patient was transfused with 1
unit of PRBCs. On 01/23 postop day #2, patient's hemoglobin was 8.7, Beltran and chest tubes were removed. A right upper extremity PICC line was placed for long-term antibiotics and right IJ cordis was removed. On 3/11 postop day #3, patient's
metoprolol was uptitrated to 37.5 mg of metoprolol. On 3/11 postop day #3, patient was deemed stable for discharge and home care was set up for his PICC line care and antibiotics.
Home medication changes:
See below
Discharge Plan
-
Patient Disposition: Home (Routine Discharge)
Discharge Diagnosis/Procedures: AVR/ endocarditis
Condition: Good
Diet: No restrictions
Activity: No strenuous activity
Driving Restrictions: Not until seen by your Dr
Bathing Restrictions: OK to Shower
Other Services: Cardiac Rehab
Specialty Instructions: Weigh Daily- Call MD for wt gain/loss 3 lbs overnight/5 lbs in 1 week
Activity Restrictions/Additional Instructions:
Inform your health care providers that you have a tissue aortic valve replacement and require life long antibiotic prophylaxis prior to invasive procedures (including dental).
ACTIVITY:
-No strenuous activity: no heavy lifting, pushing, pulling anything over 15 pounds for one month
-continue to use stairs as tolerated
DRIVING RESTRICTIONS:
-No driving for one month or until approved by your surgeon
WOUND CARE:
-Shower daily. Use soap & water.
-No lotions, creams or powders on incision area.
DIET:
-continue a low fat/low cholesterol diet.
-IF you are diabetic, continue carb controlled diet.
CARDIAC REHAB:
-Please make appointment to start in 5-6 weeks with your local hospital program. (See Cardiac Rehabilitation Discharge Booklet).
SPECIALTY INSTRUCTIONS:
-Weigh yourself daily. Call your physician for any weight gain/loss of 3 lbs overnight or 5 lbs in one week.
-REPORT any clicking noise or uneven appearance of your sternum to your surgeon immediately.
-If you smoke, you are instructed to quit. The [place] smoking hotline phone number is [phone]
Referrals:
CT Transitional Care Nurse [Outside]
(The Cardiothoracic Transitional Care Nurse will call you to set up a visit in 1-2 days.
)
[facility]. Cardiac Rehab [Outside] - 03/03/24 1:00 pm
(Cardiac Rehab Orientation and� First Exercise appointment is on 03/03/24 at 1pm.
The Cardiac Rehab gym is located on the first floor of the [facility].
)
[facility] [Outside] (they will send out a nurse only for the PICC dressing and lab draws if needed. )
Etelvina Lim NP [Specified Professional Personl] - 03/14/24 11:00 am
Vineet Chin DO [Family Provider] -
Cameron Young MD [Active] - 03/01/24 2:00 pm
Michela Munroe MD [Active] - in three to four weeks
Prescriptions:
New
cyclobenzaprine 10 mg Tablet
10 mg PO TIDPRN PRN (Reason: muscle spasm) Qty: 20 0RF
ceftriaxone 2 gram recon soln
2,000 mg IV Q24H 42 Days
ascorbic acid (vitamin C) [Vitamin C] 500 mg Tablet
500 mg PO DAILY Qty: 60 0RF
metoprolol succinate 25 mg Tablet Extended Release 24 Hr
37.5 mg PO DAILY Qty: 60 1RF
aspirin [Children's Aspirin] 81 mg Tablet,Chewable
81 mg PO DAILY Qty: 0 0RF
Continued
acetaminophen [Tylenol] 325 mg Tablet
650 mg PO Q6HPRN PRN (Reason: mild pain)
atorvastatin [Lipitor] 20 mg Tablet
20 mg PO DAILY
cyanocobalamin (vitamin B-12) 1,000 mcg Tablet
1,000 mcg PO DAILY
ferrous sulfate 325 mg (65 mg iron) Tablet
325 mg PO DAILY
Care Plan Goals
Care Plan Goals:
Problem: Readiness for enhanced knowledge related to diagnosis and treatment plan
Goal: Understand your diagnosis and treatment plan needs, including medications if applicable.
Instructions: Know your diagnosis, underlying causes and treatment plan options, including medications if applicable. Consult with your health care team to learn about your diagnosis and treatment plan, including medications if applicable.
--- NOTE | 2024-01-25 10:00 | PTCARENOTE ---
Ambulating ad vijaya: did entire loop of 450feet around entire unit: no issues.
--- NOTE | 2024-01-25 10:21 | W.PN.CD ---
Today's Communication / Plan
-
Agree with plans
Impression / Plan
-
58M with fever and streptococcal bacteremia. TTE concerning for vegetation.
Definite IE, strep in blood
- JAZMYN shows 1.8 cm vegetation with moderate AR. There may be involvement of the anterior mitral valve leaflet as well (thickening without vegetation).
- s/p AVR #[address] Young 01/22/24.
- tele stable NSR,
- Off pressors.
- ABx as directed by ID.
- Daily EKGs to follow [place] interval, stable.
- Picc line and home antibiotics: ceftriaxone dose 2g IV q24h x 6 weeks through 03/01/24
- Pt informed that he know will need ATBs prior to dental work, amox 2 g 1 hour prior�
Anemia - chronic.
- s/p PRBC on 01/21
- Hgb is sup to 8.7
- s/p Transfused
EDMUNDO, resovled
Moderate to severe aortic regurgitation - s/p AVR as above.
Mild to moderate mitral regurgitation - stable.
HLD - stable on Atorvastatin 20mg daily, continue.
Subjective:
Doing very well.
Physical Exam
Vital Signs/Labs
Vital Signs
Temp Pulse Resp BP Pulse Ox
97.6 F 86 18 126/93 96
01/25/24 07:41 01/25/24 09:00 01/25/24 07:41 01/25/24 07:41 01/25/24 08:00
01/24/24 01/25/24 01/26/24
06:59 06:59 06:59
Actual Weight 80.3 kg
01/25/24 05:41
01/25/24 05:41
PT 17.3 Sec (11.4-14.6) H 01/22/24 12:12
INR 1.43 01/22/24 12:12
APTT 30.0 Sec (23.4-35.0) 01/22/24 12:12
Magnesium 2.6 mg/dl (1.6-2.3) H 01/23/24 03:17
Physical Exam
Constitutional: No acute distress
EENT: Anicteric
Cardiovascular: S1S2 is normal and Murmur/rub/gallop absent
Respiratory: Respiratory effort normal and Lungs clear to auscul.
GI: Soft and Distention absent
Neuro/Psych: AO x 3 and Motor deficits absent
Data Reviewed
-
Date of Service: January 25, 2024
--- NOTE | 2024-01-25 10:22 | W.PN.ID1 ---
Date of Service
Date of Service: January 25, 2024
Today's Communication
Continue ceftriaxone.
Assessment / Plan
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
# Streptococcus bacteremia (4 sets bcx's)
- Repeat blood cultures negative from 01/19/24 onward
- Micro unable to identify Strep -> sent out to [facility]. Suspect NVS
- 01/22/24 s/p bio-AVR, valve cx negative
- Continue ceftriaxone dose 2g IV q24h x 6 weeks through 03/01/24.
- Home IV abx sheet submitted to heel caser 01/21/24.
Chief Complaint
-: Bacteremia and Other (Endocarditis)
Subjective / Review of Systems
Doing well.
Vital Signs / Physical Exam
Vital Signs
Vital Signs
Temp Pulse Resp BP Pulse Ox
97.6 F 86 18 126/93 96
01/25/24 07:41 01/25/24 09:00 01/25/24 07:41 01/25/24 07:41 01/25/24 08:00
Physical Exam
Constitutional: No Acute Distress and Comfortable
Cardiovascular: Regular Rate and S1/S2
Pulmonary: Clear
Gastrointestinal: Soft, Non Tender and Non Distended
Extremities: Negative Edema
Wound: Other (sternal dressing dry)
Neurological: AO x 3
Lines: PICC (RUE intact)
Objective Data
Lab Data
Lab Results
01/25/24 05:41
01/25/24 05:41
PT 17.3 Sec (11.4-14.6) H 01/22/24 12:12
INR 1.43 01/22/24 12:12
APTT 30.0 Sec (23.4-35.0) 01/22/24 12:12
Estimated Creat Clear 71 ml/min 01/25/24 05:41
Lactic Acid Cancelled 01/17/24 20:45
Total Bilirubin 0.7 mg/dl (0.2-1.3) 01/23/24 03:17
AST 48 U/L (17-59) 01/23/24 03:17
ALT 53 U/L (0-50) H 01/23/24 03:17
Alkaline Phosphatase 85 U/L (38-126) 01/23/24 03:17
Most recent labs reviewed.
Micro Results:
01/22/24 09:32 Tissue Culture - Preliminary
Heart No Growth After 72 Hours
Gram Stain - Preliminary
01/20/24 06:55 Blood Culture - Final
Blood/Venous No Growth - Final Report
01/21/24 05:20 Blood Culture - Preliminary
Blood/Venous No Growth in 4 days- Final report to follow
01/17/24 17:07 Blood Culture - Final
Blood/Venous Streptococcus species
Gram Stain - Final
01/17/24 17:07 Blood Culture - Final
Blood/Venous Streptococcus species
Gram Stain - Final
01/19/24 05:42 Blood Culture - Final
Blood/Venous No Growth - Final Report
01/19/24 05:03 Blood Culture - Final
Blood/Venous No Growth - Final Report
01/17/24 17:07 Urine Culture - Final
Urine NO GROWTH
--- NOTE | 2024-01-25 11:16 | CM ---
call to [facility]- await confirmation that all is set up for home IV infusion
--- NOTE | 2024-01-25 11:53 | CM ---
[facility] to come in to teach pt at 2pm, was told the IV meds will be delivered to pts home this eveing. pt notified and will have here for teaching. pt samuel be ready for dc after teaching.
--- NOTE | 2024-01-25 12:00 | PTCARENOTE ---
No acute changes. Vitals stable. Ambulating ad vijaya. Room air.
--- NOTE | 2024-01-25 16:26 | PTCARENOTE ---
V wires cut with CVPA at bedside; Pt showered and dressed self for discharge.
--- NOTE | 2024-01-25 17:07 | PTCARENOTE ---
Discharge instructions gone over with patient and family; all questions answered. Pt showered self, surveillance monitor removed.
== END 2024-01-25 18:46 | disposition home or self-care (01) | DRG 853 ==
LOC: CVICU 18:27
PROVIDERS: Anesthesiology; Internal Medicine; Internal Medicine Cardiovascular Disease; Nurse Practitioner; ADMITTING PHYSICIAN Internal Medicine; ATTENDING PHYSICIAN Thoracic Surgery (Cardiothoracic Vascular Surgery); CONSULT PHYSICIAN Internal Medicine; CONSULT PHYSICIAN Internal Medicine Cardiovascular Disease; CONSULT PHYSICIAN Internal Medicine Infectious Disease; EMERGENCY PHYSICIAN Emergency Medicine; FAMILY PHYSICIAN Family Medicine Sports Medicine; OTHER PHYSICIAN Clinical Nurse Specialist Acute Care
PROC: B24BZZ4 Ultrasonography of Heart with Aorta, Transesophageal (ICD-10-PCS; 2024-01-19)
PROC: 02RF08Z Replacement of Aortic Valve with Zooplastic Tissue, Open Approach (ICD-10-PCS; 2024-01-22)
PROC: 02JA4ZZ Inspection of Heart, Percutaneous Endoscopic Approach (ICD-10-PCS; 2024-01-22)
PROC: 5A1221Z Performance of Cardiac Output, Continuous (ICD-10-PCS; 2024-01-22)
PROC: 30233N1 Transfusion of Nonautologous Red Blood Cells into Peripheral Vein, Percutaneous Approach (ICD-10-PCS; 2024-01-22)
PROC: 02HV33Z Insertion of Infusion Device into Superior Vena Cava, Percutaneous Approach (ICD-10-PCS; 2024-01-24)
DX: A41.9 Sepsis, unspecified organism (principal); I33.0 Acute and subacute infective endocarditis; E87.1 Hypo-osmolality and hyponatremia; D62 Acute posthemorrhagic anemia; E87.20 Acidosis, unspecified; N17.9 Acute kidney failure, unspecified; J98.11 Atelectasis; E78.00 Pure hypercholesterolemia, unspecified; I08.0 Rheumatic disorders of both mitral and aortic valves; I10 Essential (primary) hypertension; E66.3 Overweight; H47.019 Ischemic optic neuropathy, unspecified eye; G47.00 Insomnia, unspecified; E86.1 Hypovolemia; E87.70 Fluid overload, unspecified; Z68.26 Body mass index [BMI] 26.0-26.9, adult; Z79.899 Other long term (current) drug therapy
CPT/HCPCS: 88304; 88311; 70355; 71045; 71046; 75573; 80048; 80053; 80202; 81003; 81015; 82248; 82330; 82565; 82607; 82728; 82746; 82805; 82810; 82947; 82962; 83010; 83036; 83540; 83550; 83605; 83615; 83735; 84132; 84302; 84520; 85014; 85018; 85025; 85027; 85045; 85049; 85610; 85730; 86850; 86900; 86901; 86920; 87040; 87070; 87086; 87176; 87205; 93005; 93306; 93312; 93320; 93325; 93880; 94002; 96374; 96375; 99285; C1713; J2916; P9016; P9045; P9047; Q9967

== ENCOUNTER 2024-02-06 22:17 | Observation (INO) | payer BC, SELFPAY ==
[2024-02-06 18:38] VITALS: BP 145/106; BMI 27.4
[2024-02-06 18:51] VITALS: BP 159/99
[2024-02-06 19:11] LABS: % Basophils 1.1 % (0-2); % Eosinophils 1.7 % (0-6); % Immature Granulocytes 0.4 % (0-0.5); % Monocytes 7.2 % (1.7-9.3); % Neutrophils 76.6 % (42.2-75.2); Absolute Basophils 0.1 10^3/uL (0-0.2); Absolute Eosinophils 0.1 10^3/uL (0-0.7); Absolute Monocytes 0.6 10^3/uL (0.1-0.6); Hematocrit 26.3 % (39.0-52.0); Hemoglobin 9.1 g/dL (13.0-18.0); Mean Corp Hgb Conc. 34.6 g/dL (33.0-37.0); Mean Corpuscular Hgb 27.9 pg (27.0-31.0); Mean Corpuscular Volume 80.7 fL (80.0-94.0); Mean Platelet Volume 8.6 fL (7.4-10.4); Nucleated Red Blood Cells % 0 % (-); Platelet Count 318 10^3/uL (130-400); Red Blood Cell Count 3.26 10^6/uL (4.70-6.10); Red Cell Dist. Width 16.3 % (11.5-14.5); White Blood Cell Count 7.8 10^3/uL (4.8-10.8)
[2024-02-06 19:23] LABS: ALT (SGPT) 29 U/L (0-50); AST (SGOT) 27 U/L (17-59); Albumin 4.1 g/dl (3.5-5.0); Alkaline Phosphatase 133 U/L (38-126); Blood Urea Nitrogen 23 mg/dl (9-20); Carbon Dioxide 20 mmol/L (22-30); Chloride 107 mmol/L (98-107); Estimated Creatinine Clearance 87 ml/min; Glucose 109 mg/dl (70-99); Potassium 3.9 mmol/L (3.5-5.1); Sodium 135 mmol/L (135-145); Total Bilirubin 0.5 mg/dl (0.2-1.3); Total Protein 7.1 g/dl (6.3-8.2); eGFR > 60.00
--- NOTE | 2024-02-06 20:29 | ED.GENMED ---
History of Present Illness
General
Chief Complaint: Dizziness
Source: patient, records and spouse
Exam Limitations: none
Time Seen by Provider: 02/06/24 18:57
Nursing documentation reviewed up to this point in time: agreed with
Travel History
Have you had any contact with someone who has COVID-19?: No
Do you have any symptoms of coronavirus? Fever > 100 degrees, chills, cough, shortness of breath, sore throat, loss of taste or smell, muscle aches, or headache?: No
History of Present Illness
History of Present Illness:
58-year-old male with a past medical history of hypertension, recent admission for bacteremia and endocarditis status post TAVR with Dr. Young on 01/22/2024 who presents to the emergency department for evaluation of dizziness. Patient reports that
he had onset last night rather abruptly while he was sitting on the couch. He describes a room spinning sensation that is quite intense. It is associated with nausea but no vomiting. He says that last night he took some meclizine and his symptoms
seemed to improve and he was able to get to bed. He says that when he woke up this morning he was once again having symptoms and has had them intermittently throughout the day and then around 4 PM symptoms started very intensely and persistently
once again to the point that he took meclizine; he says symptoms have improved since arrival to the emergency room but not completely resolved. This evening symptoms were associated with some diaphoresis. Once again had nausea but no vomiting. He
denies any associated headache. He denies any chest pain or palpitations. He does not have any other symptoms such as visual changes, speech issues, focal weakness or numbness in his extremities. He says that he has had similar episodes of
vertigo in the past but the symptoms are slightly more intense.
Review of Systems
Review of Systems
All Other Systems: ROS reviewed and negative except as documented in HPI and ROS
Constitutional: Denies fever or chills
EENT: Denies sore throat or runny nose
Cardiac: Reports diaphoresis; Denies chest pain, palpitations or syncope
ABD/GI: Reports nausea; Denies abdominal pain, vomiting or diarrhea
: Denies flank pain
Musculoskeletal: Denies neck pain or back pain
Neurological: Reports dizzy; Denies headache, weakness or numbness
Phy Exam
Physical Exam
Physical Exam:
General: Awake, alert, oriented x3; no acute distress
Head: Normocephalic, atraumatic
Eyes: Conjunctiva normal, EOMI�he does have leftward fatigable nystagmus; no rightward nystagmus, no vertical or rotary nystagmus
Throat: Airway intact, handling secretions
Neck: Trachea midline, supple without meningismus
Lungs: Clear to auscultation bilaterally, no wheezing, rales, rhonchi
Heart: Regular rate and rhythm, no murmurs, gallops, or rubs; midline incision well-healing
Abd: Soft, non distended, nontender
Neuro: Cranial nerves intact 2 through 12, no limb ataxia, speech is fluid with no dysarthria or aphasia, motor and sensory function is intact proximally and distally in the upper and lower extremities
Skin: no rash
Extremities: No edema in extremities, equal pulses in all extremities
Scores
NIH Stroke Score
Level of Consciousness: 0 - Alert
LOC Questions: 0-Answers both correctly
LOC Commands: 0-Performs both correctly
Best Horizontal Gaze: 0-Normal
Visual Smart: 0=Normal, no visual loss
Facial Palsy: 0=Normal, symmetrical
Motor - Right Arm: 0=No drift 10 seconds
Motor - Left Arm: 0=No drift 10 seconds
Motor - Right Le-No drift 5 seconds
Motor - Left Le-No drift 5 seconds
Limb Ataxia: 0-Absent
Sensation: 0-Normal
Best Language: 0-No aphasia
Dysarthria: 0-Normal
Extinction and Inattention: 0-No abnormality
Total Score:: 0
Thrombolytic Contraindication
Inclusion and Exclusion criteria reviewed: Yes
Reasons for NON-Tx with Thrombolytics ABSOLUTE Exclusions: Greater than 4.5 hrs from onset of sxs
Heart Failure Risk
Heart Failure Risk Score: Not Applicable
Heart Score for Chest Pain Patients
STEMI patient?: Not applicable
Withdrawal Assessment of Alcohol
Withdrawal Assessment Completed?: Not applicable
Course
Orders/Labs/Results
Orders:
Orders
02/06/24 18:43
EKG [Electrocardiogram (*1)] Urgent
Reason for Study: Vertigo / Dizzy
02/06/24 18:44
EKG [Electrocardiogram (*1)] Urgent
Reason for Study: Vertigo / Dizzy
EKG- Treatment ONCE
Cr Chest Portable [CR Chest Portable - 1 View] Urgent
Comment:
Reason For Exam: picc line
Reason Study Needs to be Portable: Other
If Reason is Other, explain: picc line
02/06/24 18:59
CBC/With Diff [Complete Blood Count/With Diff] Urgent
CMP [Comprehensive Metabolic Panel] Urgent
02/06/24 19:47
CT Head W/o Iv Contrast Urgent
Comment:
Reason For Exam: dizziness
Abnormal Lab Results
02/06/24
18:59
RBC 3.26 L 10^6/uL
(4.70-6.10)
Hgb 9.1 L g/dL
(13.0-18.0)
Hct 26.3 L %
(39.0-52.0)
RDW 16.3 H %
(11.5-14.5)
Absolute Lymphs (auto) 1.0 L 10^3/uL
(1.2-3.4)
Neutrophils % 76.6 H %
(42.2-75.2)
Lymphocytes % 13.0 L %
(20.5-51.1)
Carbon Dioxide 20 L mmol/L
(22-30)
BUN 23 H mg/dl
(9-20)
Glucose 109 H mg/dl
(70-99)
Alkaline Phosphatase 133 H U/L
(38-126)
02/06/24 18:59
02/06/24 18:59
Vital Signs
Initial and Last Documented VS:
Initial Vital Signs
Temp Pulse Resp BP Pulse Ox
36.6 C 81 16 145/106 100
02/06/24 18:38 02/06/24 18:38 02/06/24 18:38 02/06/24 18:38 02/06/24 18:38
Last Documented Vital Signs
Temp Pulse Resp BP Pulse Ox
36.6 C 68 13 159/99 99
02/06/24 18:38 02/06/24 19:15 02/06/24 19:15 02/06/24 18:51 02/06/24 19:15
MDM/Problems Addressed
Differential Diagnosis Includes:
Cerebellar CVA, BPPV, M�ni�re's disease, labyrinthitis
MDM/Problems Addressed:
58-year-old male who had TAVR 2 weeks ago presents for dizziness�describes vertiginous symptoms. He is hypertensive but has otherwise normal vitals. No other neurologic complaints. Exam as above. He does have unidirectional nystagmus. No rotary
or vertical nystagmus. Plan to place an IV check basic labs including CBC and CMP. Check an EKG. Chest x-ray ordered to confirm PICC for labs. Will send for CT head. Minimally symptomatic at rest here in the ER but symptomatic with movement
hold on meds for now as he just took meclizine earlier this evening. Reassess after the above.
Labs reviewed: CBC shows anemia which is stable from discharge. CMP no clinically significant abnormalities. CT head no acute pathology noted. EKG shows sinus rhythm. Given his recent surgery I did discuss with CT surgery nurse practitioner to
update that patient is here in the emergency room. Although by history seems more consistent with peripheral vertigo given his recent TAVR will plan to admit to rule out posterior circulation stroke. Discussed with neurology who will consult on
patient. Discussed with hospitalist for admission.
Acute Exacerbation and/or Progression of Chronic Illness:
Acutely hypertensive
Acute Exacerbation and/or Progression of Chronic Illness: HTN
*Radiology
Radiology exam reviewed: radiology read reviewed
*Pulse Oximetry
Patient hypoxic: no
*EKG
Interpreted by ED Provider?: Yes
Heart Rate: 74
Rate: normal
Rhythm: sinus
Kelly: left axis deviation
Interval: long QT
QRS Pattern: normal QRS
Ischemia: non-specific ST changes
*Critical Care Note
Total Time (30-74mins, 75-104mins- exclusive of procedures): Not Applicable
Data Reviewed
Review of Other/Old Records Reveals: Labs, Records, Radiology Studies, Operative Reports and Discharge Summary
Source: patient, records and spouse
Patient Management
Discussion with other providers: Hospitalist (Discussed with hospitalist) and General Service Officer (Discussed with cardiothoracic surgery, discussed with neurology)
Escalation/DeEscalation of care consider admission/obs:
Admission indicated
ED Attending Note
-
Portions of this chart may have been created with voice recognition software.� Occasional wrong word or��sound alike� substitutions may have occurred due to the inherent limitations of voice recognition software.
Discharge Plan
Departure
Patient Disposition: Admit
Date of Disposition: 02/06/24
Time of Disposition: 20:40
Presentation/result/management discussed w/ accepting MD/DO: Hospitalist
Patient with high blood pressure during this ER visit?: Yes
Discharge Problem:
Vertigo, Hypertension
Prescriptions:
No Action
acetaminophen [Tylenol] 325 mg Tablet
650 mg PO Q6HPRN PRN (Reason: mild pain)
atorvastatin [Lipitor] 20 mg Tablet
20 mg PO DAILY
cyanocobalamin (vitamin B-12) 1,000 mcg Tablet
1,000 mcg PO DAILY
ferrous sulfate 325 mg (65 mg iron) Tablet
325 mg PO DAILY
aspirin [Children's Aspirin] 81 mg Tablet,Chewable
81 mg PO DAILY Qty: 0 0RF
ceftriaxone 2 gram recon soln
2,000 mg IV Q24H 42 Days
ascorbic acid (vitamin C) [Vitamin C] 500 mg Tablet
500 mg PO DAILY Qty: 60 0RF
metoprolol succinate 25 mg Tablet Extended Release 24 Hr
37.5 mg PO DAILY Qty: 60 1RF
meclizine 12.5 mg Tablet
12.5 mg PO TID PRN (Reason: vertigo)
Referrals:
Delta Seth MD [Active] - Call in 1-3 days for appt
Vineet Chin DO [Family Provider] -
Interventions
Interventions:
*Risk Screen - Suicide Last Done: 02/06/24 18:38
*General Assessment Last Done: 02/06/24 18:49
*Neglect/Abuse Screening Last Done: 02/06/24 18:49
ED- Fall Risk Assessment Last Done: 02/06/24 18:49
*ED COVID-19 Vaccine History Last Done: 02/06/24 18:38
ED- Neurological Assessment Last Done: 02/06/24 18:49
ED- Cardiac Assessment Last Done: 02/06/24 18:49
ED Swallowing Screen Last Done: 02/06/24 18:49
[2024-02-06 21:00] VITALS: BP 149/98
--- NOTE | 2024-02-06 21:05 | HPS.HSE ---
Family Physician
-
Family Physician: Vineet Chin
Chief Complaint
-
dizziness/vertigo
History of Present Illness
The patient is a 58 yo male with PMH significant for HTN, recent bacteremia and endocarditis 01/17/24 admission here,blood cultures revealed Strep bacteremia with Strep aortic valve endocarditis, requiring aortic valve replacement w Dr. Young 01/22/24,
presents to ED driven here by his , due to dizziness that started acutely last night while sitting on couch. Room had spinning sensation a/w nausea, diaphoresis, and no vomiting. Took Meclizine with some improvement in symptoms. Symptoms came
back this morning, intermittent during the day, worsening this afternoon 4 pm and he took another Meclizine which may have improved symptoms at this time. Associated with ataxia, difficulty ambulating. Other symptoms include diaphoresis. No CP, no
SOB, no LOC, no GUEVARA, no vision changes, no other focal neuro deficits. He has known hx of vertigo. He has PICC line in place for outpatient antibiotics with Rocephin 2 grams IV every 24 hours for 42 days from 01/25/24.
Medical History
Past Medical History
Past Medical History: Reports HTN, Hypercholesterolemia and Other (aortic valve endocarditis 01/17/24)
Past Surgical History: Reports Cardiac ( Aortic valve replacement (#25 Inspiris LORRAINEA) 01/22/24)
Social History
Tobacco: Non-smoker
Alcohol: Occasional
Drug: None
Employment: Retired
Family History
Family History: Not pertinent
Allergies / Home Medications
Allergies reflects when Allergies were last updated in [employer].
Home Medications with original date entered in [employer]
Allergy/Medication List:
Allergies
Allergy/AdvReac Type Severity Reaction Status Date / Time
No Known Allergies Allergy Verified 02/06/24 18:38
Home Medications
acetaminophen 325 mg tablet (Tylenol) 650 mg PO Q6HPRN PRN mild pain 01/17/24
atorvastatin 20 mg tablet (Lipitor) 20 mg PO DAILY High Cholesterol 01/17/24
cyanocobalamin (vitamin B-12) 1,000 mcg tablet 1,000 mcg PO DAILY Supplement 01/17/24
ferrous sulfate 325 mg (65 mg iron) tablet 325 mg PO DAILY Supplement 01/17/24
ascorbic acid (vitamin C) 500 mg tablet (Vitamin C) 500 mg PO DAILY #60 tabs 01/25/24
aspirin 81 mg chewable tablet (Children's Aspirin) 81 mg PO DAILY Blood clot prevention/tx #0 tabs 01/25/24
ceftriaxone 2 gram intravenous solution 2,000 mg IV Q24H Endocarditis 42 days 01/25/24
metoprolol succinate 25 mg tablet,extended release 24 hr 37.5 mg PO DAILY Blood pressure #60 tabs 01/25/24
meclizine 12.5 mg tablet 12.5 mg PO TID PRN vertigo 02/06/24
Review of Systems
-
A 12 point ROS was completed and negative except as noted: Yes
Physical Exam
Vital Signs
Vital Signs
Temp Pulse Resp BP Pulse Ox
98 F 71 0 159/99 100
02/06/24 18:38 02/06/24 21:00 02/06/24 21:00 02/06/24 18:51 02/06/24 21:00
Physical Exam
General: Well Developed, Well Nourished, No Apparent Distress, Comfortable and Conversant
HEENT: NormoCephalic, Anicteric and Moist mucous membranes
Respiratory: Clear
Cardiac: S1/S2 and Regular Rhythm
GI: Soft, Non Tender and Non Distended
Musculoskeletal: No Clubbing, No Cyanosis and No Edema
Skin: Warm and Dry
Neuro: AO x 3, No Motor Deficits and Other (horizontal nystagmus present)
Psych: Calm
Laboratory Results
-
02/06/24 18:59
02/06/24 18:59
Laboratory Results
Total Bilirubin 0.5 mg/dl (0.2-1.3) 02/06/24 18:59
AST 27 U/L (17-59) 02/06/24 18:59
ALT 29 U/L (0-50) 02/06/24 18:59
Alkaline Phosphatase 133 U/L (38-126) H 02/06/24 18:59
Data Reviewed
-
Diagnostic Radiology: Report Reviewed by me (Right PICC line with tip over the inferior aspect of the SVC)
CT Scan: Report Reviewed by me (Preliminary radiology read CT head NAD)
Impression/Plan
-
IMPRESSION:
The patient is a 58 yo male with PMH significant for HTN, recent bacteremia and endocarditis 01/17/24 admission here,blood cultures revealed Strep bacteremia with Strep aortic valve endocarditis, requiring aortic valve replacement w Dr. Young 01/22/24,
presents to ED driven here by his , due to dizziness that started acutely last night while sitting on couch. Room had spinning sensation a/w nausea, diaphoresis, and no vomiting. He has PICC line in place for outpatient antibiotics with Rocephin
2 grams IV every 24 hours for 42 days from 01/25/24.
#Dizziness and vertigo, associated with recent TAVR for aortic valve endocarditis (01/22/24), r/o acute posterior CVA
-tele monitoring OBS status
-Neuro Cx
-neuro-checks
-MRI brain/MRA head and neck pending
-CT surgery consultation placed and notified in ED - will hold off on ordering echo pending CT surgery recs
-scheduled Meclizine for now
-PT/OT evaluation
-aspirin/statin therapy
#HTN, essential
-permissive HTN for now
-continue home metoprolol
#TAVR 01/21
#Aortic Valve endocarditis
-continue Rocephin 2 gram IV daily (in the morning) as per OP, via PICC line RUE
DVT proph-PCDs knee
Full Code
[2024-02-06 22:00] VITALS: BP 142/92
--- NOTE | 2024-02-06 23:00 | PTCARENOTE ---
Patient admitted from ED. Patient is AAO x3, on RA, complaining of dizziness. No other complaints at this time. Patient oriented to room and call bliss is within reach.
[2024-02-06 23:03] VITALS: BMI 27.1
[2024-02-06 23:04] VITALS: BP 149/106
[2024-02-06] MEDS: ANTIVERT 12.5 MG PO (23:27)
[2024-02-07] VITALS (7 sets, daily range): BP systolic 143–173; BP diastolic 89–107; PULSE 80; O2SAT 96
--- NOTE | 2024-02-07 06:56 | CONSULT.CT ---
Consultation
-
Date/Time Consultation Requested: 02/06
Date/Time Consultation Performed: 02/06 645
Performing Provider: Maricruz Ambrocio MD
Patient History
Physicians
Family Physician: Vineet Chin
Outpatient Payroll Analyst: Dr. iGron
History of Present Illness
58-year-old male with past medical history of hypertension, hyperlipidemia, aortic valve endocarditis status post AVR with Dr. Young on 01/22/2024 he was discharged home on 01/24 with Rocephin 2 g IV daily presented to the ER on 02/05 with episodes of
intermittent dizziness. Patient states that he was taken meclizine at home with mild relief, however, dizziness worsened and he presented to the emergency room. CT head is pending. CT surgery was consulted
Past Medical History
Past Medical History: HTN, Hypercholesterolemia and Valvular Disease
Endocarditis
Past Surgical History
Aortic valve replacement (#25 Inspiris RESILIA)
Dental History
Multiple bridges
Family History
Mother: Still Living
Father: Still Living
Social History
Alcohol: Occasional
Drug: None
Tobacco: Non-Smoker
Personal:
Living: With Spouse
Employment: Retired
Allergies
Allergy/AdvReac Type Severity Reaction Status Date / Time
No Known Allergies Allergy Verified 02/06/24 18:38
Home Medications
Medication Instructions Recorded Confirmed Type
acetaminophen 325 mg tablet 650 mg PO Q6HPRN PRN mild pain 01/17/24 02/06/24 History
(Tylenol)
atorvastatin 20 mg tablet (Lipitor) 20 mg PO DAILY High Cholesterol 01/17/24 02/06/24 History
cyanocobalamin (vitamin B-12) 1,000 mcg PO DAILY Supplement 01/17/24 02/06/24 History
1,000 mcg tablet
ferrous sulfate 325 mg (65 mg 325 mg PO DAILY Supplement 01/17/24 02/06/24 History
iron) tablet
ascorbic acid (vitamin C) 500 mg 500 mg PO DAILY #60 tabs 01/25/24 02/06/24 Rx
tablet (Vitamin C)
aspirin 81 mg chewable tablet 81 mg PO DAILY Blood clot 01/25/24 02/06/24 Rx
(Children's Aspirin) prevention/tx #0 tabs
ceftriaxone 2 gram intravenous 2,000 mg IV Q24H Endocarditis 42 01/25/24 02/06/24 Rx
solution days
metoprolol succinate 25 mg 37.5 mg PO DAILY Blood pressure 01/25/24 02/06/24 Rx
tablet,extended release 24 hr #60 tabs
meclizine 12.5 mg tablet 12.5 mg PO TID PRN vertigo 02/06/24 02/06/24 History
Review of Systems
-
History Source: Patient
General: Reports No Symptoms
HEENT: Reports No Symptoms
Respiratory: Reports No Symptoms
Cardiac: Reports No Symptoms
Abdomen/GI: Reports No Symptoms
: Reports No Symptoms
Musculoskeletal: Reports No Symptoms
Skin: Reports No Symptoms
Neurological: Reports Dizzy
Vascular: Reports No Symptoms
Physical Exam
Vital Signs
Temp 97.7 F 02/07/24 03:31
Temp route: Oral 02/07/24 03:31
Pulse 73 02/07/24 03:31
Rhythm: Normal sinus rhythm 02/06/24 23:00
Resp Rate 18 02/07/24 03:31
Blood pressure 143/89 02/07/24 03:31
Blood pressure extremity used: Left upper arm 02/07/24 03:31
Position: Lying 02/07/24 03:31
MAP (cuff-Marcus Monitor) 108 02/06/24 22:00
SaO2 100 02/07/24 03:31
Oxygen Mode of Delivery Room air 02/07/24 03:31
Can the patient verbally communicate their pain? Yes 02/06/24 23:13
Actual Weight 80.938 kg 02/06/24 23:03
Body Mass Index (BMI) 27.1 02/06/24 23:03
Labs
02/06/24 18:59
Exam
General: Well Developed
HEENT: Normocephalic
Respiratory: Clear
Cardiac: S1/S2
GI: Soft, Non Tender, Non Distended and Normal Bowel Sounds
Rectal: Deferred by Provider
Skin: Warm and Other (Midsternal incision healing well)
Neuro: AO x 3
Lymph: No Lymphadenopathy
Psych: Calm
Assessment / Plan
-
58-year-old male with past medical history listed above status post AVR with Dr. Young now presenting with intermittent episodes of dizziness.
#Dizziness
#hx of vertigo
- CTH negative for acute infarcts
- Pending MRI
- Rest of care per primary team
#Hx of endocarditis s/p AVR 01/21
- Continue Rocephin IV
[2024-02-07] MEDS: ANTIVERT 12.5 MG PO ×2 (08:21→15:36)
[2024-02-07] MEDS: VITAMIN B-12 1000 MCG PO (08:21)
[2024-02-07] MEDS: LOW STRENGTH ASPIRIN 81 MG PO (08:21)
[2024-02-07] MEDS: LIPITOR 20 MG PO (08:21)
[2024-02-07] MEDS: VITAMIN C 500 MG PO (08:21)
[2024-02-07] MEDS: FEOSOL 325 MG PO (08:21)
[2024-02-07] MEDS: TOPROL XL 12.5 MG PO (08:21)
[2024-02-07] MEDS: TOPROL XL 25 MG PO (08:21)
[2024-02-07 08:22] LABS: INR 1.12; PT 14.2 Sec (11.4-14.6)
[2024-02-07] MEDS: ROCEPHIN 2000 MG IV (08:22)
[2024-02-07] MEDS: STERILE WATER FOR INJECTION 20 ML IV (08:22)
[2024-02-07 08:56] LABS: Blood Urea Nitrogen 18 mg/dl (9-20); Calcium 9.5 mg/dl (8.4-10.2); Carbon Dioxide 22 mmol/L (22-30); Chloride 108 mmol/L (98-107); Estimated Creatinine Clearance 87 ml/min; Glucose 87 mg/dl (70-99); HDL Cholesterol 42 mg/dl; LDL Cholesterol, Calculated 84 mg/dl; Magnesium 1.9 mg/dl (1.6-2.3); Potassium 4.1 mmol/L (3.5-5.1); Sodium 136 mmol/L (135-145); Total Cholesterol 156 mg/dl (50-199); Triglyceride 150 mg/dl (10-149); Very Low Density Lipoprotein 30 mg/dl (0-30); eGFR > 60.00
--- NOTE | 2024-02-07 09:59 | CON.NEURO ---
Consultation
Order
Date of Consultation: 02/07/24
Requesting Provider:
Reason for Consult: dizziness
CC: vertigo
HPI: This is a 58-year-old man who presented to [facility] on 02/06/2024 with dizziness. According to the patient he developed acute in onset sensation of spinning that occurred at rest while he was watching TV on 02/05/2024. His
symptoms were relieved by meclizine and reoccurred the following morning upon waking up and turning his head. The patient took meclizine again, which alleviated the symptoms. He contacted his engineering specialist technician, who advised him to monitor their vitals
during an episode to determine if it was related to low blood pressure. The patient reports that his blood pressure was actually higher during the episode leading to ER referral
The patient denies any nausea or vomiting associated with the vertigo. He report a mild chronic ringing sensation in his ears but no motor or sensory deficits, diplopia, dysarthria, dysphagia
ER VS: 145/106, 81, afebrile
CT head�no acute abnormalities.
PDMP:none
Labs: Hemoglobin�9.1, normal WBCs, creatinine, glucose�109
PMH:�L Anterior Ischemic Optic Neuropathy, HTN, DLP, h/o , BPPV
PSH: AVR(01/22/2024)
SH: , nonsmoker;
FH:not contributory to current presentation
All: NKDA
ROS:Constitutional: Negative. Negative for chills, fever and unexpected weight change.
HENT: positive for vertigo, bilateral tinnitus
Eyes: Positive for chronic left lower visual field if
Respiratory: Negative for cough, choking and shortness of breath.
Cardiovascular: Negative for chest pain, palpitations and leg swelling.
Gastrointestinal: Negative for abdominal pain and vomiting.
Endocrine: Negative. Negative for cold intolerance.
Genitourinary: Negative for dysuria, flank pain and urgency.
Musculoskeletal: Negative for back pain, gait problem, neck pain and neck stiffness.
Skin: Negative for rash.
Allergic/Immunologic: Negative. Negative for immunocompromised state.
Neurological: Negative for dizziness, tremors, seizures, speech difficulty, numbness and headaches.
Psychiatric/Behavioral: Negative for behavioral problems, confusion and hallucinations.
General: Well developed. In no acute distress.
Cardio: Regular rate and rhythm without murmur. Extremities are without cyanosis or edema.
Neuro:
Mental Status: Alert, oriented to person, place, and date. Normal attention and recall. Good fund of knowledge. Follows complex requests across the midline. Comprehension, naming, and repetition intact. Immediate and delayed recall 3/3.
Cranial Nerves: . Pupils are equally round and reactive to light. EOMs full. Visual gaines full to confrontation. No ptosis. No nystagmus. V1-V3 intact to light touch and pinprick bilaterally, symmetric. Face symmetric. Normal hearing AU.
The palate elevated well. SCMs and traps 5/5. Tongue midline. No dysarthria.
Motor: Normal bulk and tone. No pronator or arm drift. Strength 5/5 throughout. No clonus.
Reflexes: 2+ throughout the upper extremities and knees. 2/2 in AJs. Plantar responses flexor bilaterally.
Sensory: Reduced vibration at the toes
Coordination: No dysmetria or tremor.
Gait: deferred
Assessment and Plan:
I. BPPV
II. History of L AION
III. S/p AVR (01/22/2024)
-Fall precautions
-Strict glycemic, lipid and blood pressure control
-Meclizine 25 every 8 hours as needed
-Brain MRI without delio
I personally reviewed all radiology and labs along with past medical records pertinent to current medical problems. Total time spent in patient care is 60 minutes.
Thank you for allowing us to participate in the care of this patient. We will continue to follow. Please do not hesitate to contact us with any questions or concerns.
Subjective/Objective
Subjective Data
Date of Service: February 07, 2024
Objective Data
Vital Signs
Temp Pulse Resp BP Pulse Ox
37.1 C 79 16 148/95 100
02/07/24 07:36 02/07/24 07:36 02/07/24 07:36 02/07/24 07:36 02/07/24 07:36
Lab Results
02/06/24 18:59
02/07/24 07:57
PT 14.2 Sec (11.4-14.6) 02/07/24 07:57
INR 1.12 02/07/24 07:57
Sodium 136 mmol/L (135-145) 02/07/24 07:57
Potassium 4.1 mmol/L (3.5-5.1) 02/07/24 07:57
BUN 18 mg/dl (9-20) 02/07/24 07:57
Glucose 87 mg/dl (70-99) 02/07/24 07:57
Calcium 9.5 mg/dl (8.4-10.2) 02/07/24 07:57
LDL Cholesterol, Calc 84 mg/dl 02/07/24 07:57
Patient Allergies
No Known Allergies Allergy (Verified 02/06/24 18:38)
Medications
-
Active Medications
Generic Name Dose Route Start Last Admin
Trade Name Freq PRN Reason Stop Dose Admin
Acetaminophen 650 mg 02/06/24 22:41
Acetaminophen 325 Mg Tablet PO 03/05/24 22:40
Q6HPRN PRN
mild pain
Acetaminophen 650 mg 02/06/24 22:41
Acetaminophen 650 Mg Rectal Suppository RECTAL 03/05/24 22:40
Q4HPRN PRN
GUEVARA, or temp >100.4F
Acetaminophen 650 mg 02/06/24 22:41
Acetaminophen 325 Mg Tablet PO 03/05/24 22:40
Q4HPRN PRN
GUEVARA, or temp >100.4F
Ascorbic Acid 500 mg 02/07/24 08:00 02/07/24 08:21
Ascorbic Acid 500 Mg Tablet PO 03/06/24 07:59 500 mg
DAILY JESSICA Administration
Aspirin 81 mg 02/07/24 08:00 02/07/24 08:21
Aspirin 81 Mg Chewable Tablet PO 03/06/24 07:59 81 mg
DAILY JESSICA Administration
Atorvastatin Calcium 20 mg 02/07/24 08:00 02/07/24 08:21
Atorvastatin (Lipitor) 20 Mg Tablet PO 03/06/24 07:59 20 mg
DAILY JESSICA Administration
Ceftriaxone Sodium 2,000 mg 02/07/24 08:00 02/07/24 08:22
Ceftriaxone 2,000 Mg/20 Ml Vial IV 2,000 mg
Q24H JESSICA Administration
Cyanocobalamin 1,000 mcg 02/07/24 08:00 02/07/24 08:21
Cyanocobalamin 1,000 Mcg Tablet PO 03/06/24 07:59 1,000 mcg
DAILY JESSICA Administration
Ferrous Sulfate 325 mg 02/07/24 08:00 02/07/24 08:21
Ferrous Sulfate 325 Mg Tablet PO 03/06/24 07:59 325 mg
DAILY JESSICA Administration
Meclizine HCl 12.5 mg 02/06/24 22:41 02/07/24 08:21
Meclizine 12.5 Mg Tablet PO 03/05/24 22:40 12.5 mg
TID JESSICA Administration
Metoprolol Succinate 25 mg 02/07/24 08:00 02/07/24 08:21
Metoprolol 25 Mg Extended Release Tablet PO 03/06/24 07:59 25 mg
DAILY JESSICA Administration
Metoprolol Succinate 12.5 mg 02/07/24 08:00 02/07/24 08:21
Metoprolol 12.5 Mg Extended Release Dose (1/2 Of 25 Mg Xl Tablet) PO 03/06/24 07:59 12.5 mg
DAILY JESSICA Administration
Sterile Water 20 ml 02/07/24 08:00 02/07/24 08:22
Sterile Water For Injection 20 Ml Vial IV 03/06/24 07:59 20 ml
Q24H JESSICA Administration
Home Medications
Medication Instructions Recorded
acetaminophen 325 mg tablet 650 mg PO Q6HPRN PRN mild pain 01/17/24
(Tylenol)
atorvastatin 20 mg tablet (Lipitor) 20 mg PO DAILY High Cholesterol 01/17/24
cyanocobalamin (vitamin B-12) 1,000 mcg PO DAILY Supplement 01/17/24
1,000 mcg tablet
ferrous sulfate 325 mg (65 mg 325 mg PO DAILY Supplement 01/17/24
iron) tablet
ascorbic acid (vitamin C) 500 mg 500 mg PO DAILY #60 tabs 01/25/24
tablet (Vitamin C)
aspirin 81 mg chewable tablet 81 mg PO DAILY Blood clot 01/25/24
(Children's Aspirin) prevention/tx #0 tabs
ceftriaxone 2 gram intravenous 2,000 mg IV Q24H Endocarditis 42 01/25/24
solution days
metoprolol succinate 25 mg 37.5 mg PO DAILY Blood pressure 01/25/24
tablet,extended release 24 hr #60 tabs
meclizine 12.5 mg tablet 12.5 mg PO TID PRN vertigo 02/06/24
Vital Signs and Labs
-
Vital Signs and Labs:
Vital Signs
Temp Pulse Resp BP Pulse Ox
36.6 C 77 16 173/107 100
02/07/24 11:08 02/07/24 11:08 02/07/24 11:08 02/07/24 11:08 02/07/24 11:08
Lab Results
02/06/24 18:59
02/07/24 07:57
PT 14.2 Sec (11.4-14.6) 02/07/24 07:57
INR 1.12 02/07/24 07:57
Sodium 136 mmol/L (135-145) 02/07/24 07:57
Potassium 4.1 mmol/L (3.5-5.1) 02/07/24 07:57
BUN 18 mg/dl (9-20) 02/07/24 07:57
Glucose 87 mg/dl (70-99) 02/07/24 07:57
Calcium 9.5 mg/dl (8.4-10.2) 02/07/24 07:57
LDL Cholesterol, Calc 84 mg/dl 02/07/24 07:57
Home Medications
-
Home Medications
acetaminophen 325 mg tablet (Tylenol) 650 mg PO Q6HPRN PRN mild pain 01/17/24
atorvastatin 20 mg tablet (Lipitor) 20 mg PO DAILY High Cholesterol 01/17/24
cyanocobalamin (vitamin B-12) 1,000 mcg tablet 1,000 mcg PO DAILY Supplement 01/17/24
ferrous sulfate 325 mg (65 mg iron) tablet 325 mg PO DAILY Supplement 01/17/24
ascorbic acid (vitamin C) 500 mg tablet (Vitamin C) 500 mg PO DAILY #60 tabs 01/25/24
aspirin 81 mg chewable tablet (Children's Aspirin) 81 mg PO DAILY Blood clot prevention/tx #0 tabs 01/25/24
ceftriaxone 2 gram intravenous solution 2,000 mg IV Q24H Endocarditis 42 days 01/25/24
metoprolol succinate 25 mg tablet,extended release 24 hr 37.5 mg PO DAILY Blood pressure #60 tabs 01/25/24
meclizine 12.5 mg tablet 12.5 mg PO TID PRN vertigo 02/06/24
Medications
-
Medications:
Generic Name Dose Route Start Last Admin
Trade Name Freq PRN Reason Stop Dose Admin
Acetaminophen 650 mg 02/06/24 22:41
Acetaminophen 325 Mg Tablet PO 03/05/24 22:40
Q6HPRN PRN
mild pain
Acetaminophen 650 mg 02/06/24 22:41
Acetaminophen 650 Mg Rectal Suppository RECTAL 03/05/24 22:40
Q4HPRN PRN
GUEVARA, or temp >100.4F
Acetaminophen 650 mg 02/06/24 22:41
Acetaminophen 325 Mg Tablet PO 03/05/24 22:40
Q4HPRN PRN
GUEVARA, or temp >100.4F
Ascorbic Acid 500 mg 02/07/24 08:00 02/07/24 08:21
Ascorbic Acid 500 Mg Tablet PO 03/06/24 07:59 500 mg
DAILY JESSICA Administration
Aspirin 81 mg 02/07/24 08:00 02/07/24 08:21
Aspirin 81 Mg Chewable Tablet PO 03/06/24 07:59 81 mg
DAILY JESSICA Administration
Atorvastatin Calcium 20 mg 02/07/24 08:00 02/07/24 08:21
Atorvastatin (Lipitor) 20 Mg Tablet PO 03/06/24 07:59 20 mg
DAILY JESSICA Administration
Ceftriaxone Sodium 2,000 mg 02/07/24 08:00 02/07/24 08:22
Ceftriaxone 2,000 Mg/20 Ml Vial IV 2,000 mg
Q24H JESSICA Administration
Cyanocobalamin 1,000 mcg 02/07/24 08:00 02/07/24 08:21
Cyanocobalamin 1,000 Mcg Tablet PO 03/06/24 07:59 1,000 mcg
DAILY JESSICA Administration
Ferrous Sulfate 325 mg 02/07/24 08:00 02/07/24 08:21
Ferrous Sulfate 325 Mg Tablet PO 03/06/24 07:59 325 mg
DAILY JESSICA Administration
Meclizine HCl 12.5 mg 02/06/24 22:41 02/07/24 08:21
Meclizine 12.5 Mg Tablet PO 03/05/24 22:40 12.5 mg
TID JESSICA Administration
Metoprolol Succinate 25 mg 02/07/24 08:00 02/07/24 08:21
Metoprolol 25 Mg Extended Release Tablet PO 03/06/24 07:59 25 mg
DAILY JESSICA Administration
Metoprolol Succinate 12.5 mg 02/07/24 08:00 02/07/24 08:21
Metoprolol 12.5 Mg Extended Release Dose (1/2 Of 25 Mg Xl Tablet) PO 03/06/24 07:59 12.5 mg
DAILY JESSICA Administration
Sterile Water 20 ml 02/07/24 08:00 02/07/24 08:22
Sterile Water For Injection 20 Ml Vial IV 03/06/24 07:59 20 ml
Q24H JESSICA Administration
--- NOTE | 2024-02-07 10:10 | W.PN.HOSP.TC ---
Today's Communication/Plan
-
MRI of brain
Neuro consult
further eval as per results of MRI
Assessment / Plan
Assessment / Plan
The patient is a 58 yo male with PMH significant for HTN, recent bacteremia and endocarditis 01/17/24 admission here,blood cultures revealed Strep bacteremia with Strep aortic valve endocarditis, requiring aortic valve replacement w Dr. Young 01/22/24,
presents to ED driven here by his , due to dizziness that started acutely while sitting on couch. Room had spinning sensation a/w nausea, diaphoresis, and no vomiting. He has PICC line in place for outpatient antibiotics with Rocephin 2 grams IV
every 24 hours for 42 days from 01/25/24.
#Dizziness and vertigo, associated with recent TAVR for aortic valve endocarditis (01/22/24), r/o acute posterior CVA
-tele monitoring OBS status
-Neuro Cx
-neuro-checks
-MRI brain/MRA head and neck pending
-CT surgery consultation input appreciated
contacted Dr. Seth to update, await MRI results and will further update
-scheduled Meclizine for now
-PT/OT evaluation
-aspirin/statin therapy
#HTN, essential
-permissive HTN for now
-continue home metoprolol
#TAVR 01/21
#Aortic Valve endocarditis
-continue Rocephin 2 gram IV daily (in the morning) as per OP, via PICC line RUE
DVT proph-PCDs knee
Full Code
Anticipated Discharge: 24 - 48 hours
Subjective/Interval History
-
Date of Service: February 07, 2024
Feeling better after receiving Meclizine
Objective Data
-
Labs:
Laboratory Results
02/07/24
07:57
PT 14.2
INR 1.12
Sodium 136
Potassium 4.1
Chloride 108 H
Carbon Dioxide 22
BUN 18
Creatinine 0.9
Glucose 87
Calcium 9.5
Vital Signs:
Vital Signs
Temp Pulse Resp BP Pulse Ox
98.7 F 79 16 148/95 100
02/07/24 07:36 02/07/24 07:36 02/07/24 07:36 02/07/24 07:36 02/07/24 07:36
I&O
02/06/24 02/07/24 02/08/24
06:59 06:59 06:59
Output Total 400 / 400
Balance -400 / -400
Review of Systems
-
History Source: Patient and Family (brother in room)
Constitutional: Denies Fever
EENT: Reports No Symptoms Reported
Respiratory: Reports No Symptoms
Cardiac: Reports No Symptoms
Abdomen/GI: Reports No Symptoms
Musculoskeletal: Reports No Symptoms
Neuro: Reports Dizzy (better)
Physical Exam
-
General: Well Developed, Well Nourished and No Apparent Distress
HEENT: Normocephalic, Atraumatic and Moist Mucous Membranes
Respiratory: Clear to Auscultation; Negative Wheezes, Rales or Rhonchi
Cardiac: Regular Rhythm and S1/S2
GI: Soft, Nontender and Nondistended
Musculoskeletal: No Clubbing, No Cyanosis and No Edema
Neuro: Awake, Alert, Oriented and Other (horizontal nystagmus noted on admission, is not noted currently)
--- NOTE | 2024-02-07 14:39 | CM ---
Addendum entered by Stephy Marie 02/07/24 14:42:
Observation form completed.
Original Note:
Patient seen bedside.
IA completed.
Patient lives with spouse 2 story home.
]Independent prior to admission.
Patient drives (has not in a while)
Has had [facility], but not current.
Current with [facility] for IV anbx, Picc line.
PCP: DR Chin
Pharmacy: [facility]
Plan: home with [facility] to resume.
[2024-02-08] MEDS: ANTIVERT 12.5 MG PO ×4 (00:23→17:07)
[2024-02-08 03:25] VITALS: BP 138/98
[2024-02-08 07:30] VITALS: BP 141/101
[2024-02-08] MEDS: TOPROL XL 25 MG PO (08:05)
[2024-02-08] MEDS: LIPITOR 20 MG PO (08:05)
[2024-02-08] MEDS: TOPROL XL 12.5 MG PO (08:05)
[2024-02-08] MEDS: LOW STRENGTH ASPIRIN 81 MG PO (08:06)
[2024-02-08] MEDS: ROCEPHIN 2000 MG IV (08:06)
[2024-02-08] MEDS: FEOSOL 325 MG PO (08:06)
[2024-02-08] MEDS: VITAMIN C 500 MG PO (08:06)
[2024-02-08] MEDS: STERILE WATER FOR INJECTION 20 ML IV (08:06)
[2024-02-08] MEDS: VITAMIN B-12 1000 MCG PO (08:06)
--- NOTE | 2024-02-08 08:30 | W.PN.NEURO.1 ---
Addendum entered and electronically signed by Harry Mcmillan MD 02/08/24 12:57:
I saw and evaluated the patient I reviewed the note by Yolanda Tse agree the findings the following comments:
58-year-old male with a past medical history of recent endocarditis, aortic valve replacement, left eye anterior ischemic optic neuropathy presented to hospital with sudden onset vertigo. Patient reports 2 previous episodes of vertigo in his life
lasting around 5 to 7 days happening around 3 years ago. He does have some mild hearing abnormality right ear and says that he has seen ENT with the possibility for hearing aids that he decided he did not want to proceed at this time, he had been
told by doctors while he is symptomatic with vertigo that he had abnormal eye movements.
Neurologic examination shows normal mental status. I do not see any abnormal nystagmus on extraocular movement testing and resting gaze is midline, other cranial nerves normal, motor function normal and patient is able to walk around without any
problem
MRI brain reviewed which shows a small subacute infarct in the right frontal lobe.
Assessment: Patient very likely has a peripheral vertigo syndrome, suspect either M�ni�re's disease or a recurrent vestibular neuritis, the duration of his vertigo is generally too long to be BPPV.
The stroke seen on brain MRI is definitely not the cause of his presenting symptoms, and it can be presumed that it was due to the effects of major cardiac surgery several weeks ago.
Recommendations
-Meclizine 25 mg 2-3 times a day watching for drowsiness
-Outpatient vestibular therapy may be helpful
-No need for following the right MCA protrusion anatomic variant versus small aneurysm
-Continue with aspirin
-Can stop NIH stroke scales
-No further workup or monitoring felt necessary from a neurologic perspective no barriers to discharge from my standpoint
Original Note:
Documented by User: Yolanda Reina NP 02/08/24 12:02
Today's Communication / Plan
-
.
Neuro Assessment/Plan
Assessment
This is a 58-year-old man who presented to on 02/06/2024 with report of dizziness.
-CT head 02/06/24: No acute abnormalities.
-MRI Brain 02/07/24: Within the medial aspect of the right precentral gyrus, there is a 2 mm focus of relatively high intensity increased diffusion-weighted signal, with subtle decreased ADC signal and subtle increased FLAIR signal. This would
suggest a small focus of acute to subacute infarction, most likely subacute. No other suspicious focus of acute to subacute infarction, with particular attention to the cerebellum. Mild diffuse atrophy.
Mild to moderate T2 and FLAIR white matter hyperintensities, commonly seen with aging and usually attributed to small vessel ischemic disease.
-MRA head 02/07/24: No evidence for significant stenosis or large vessel occlusion of the intracranial circulation. 2 mm rounded protrusion of a branch vessel arising anteriorly from the right middle cerebral artery near its bifurcation, suspicious
for a small aneurysm. Consider a follow-up MR angiography of the intracranial circulation, suggested timeframe of 6 months-1 year.
-MRA Neck 02/07/24: No significant narrowing of the carotid bulbs or internal carotid arteries bilaterally within the neck.
I.� Peripheral vertigo syndrome; vestibular neuritis vs meneire's disease, less likely BPPV due to longer duration of symptoms.
II. Incidental finding of a subacute right precentral gyrus ischemic infarct, unrelated to patient's symptoms. Likely due to recent endocarditis/AVR.
III. 2mm R MCA protrusion, anatomical variant vs small aneurysm, asymptomatic.
IV. History of L AION
III. S/p AVR (01/22/2024)
Plan
-Continue aspirin 81mg daily.
-Goal normotension.
-Continue meclizine 25mg 2-3 times daily until symptoms resolve.
-May benefit from outpatient vestibular therapy.
-Continue atorvastatin 20mg daily. LDL is 84.
-Neurological checks per unit guidelines. Okay to discontinue NIHSS.
-Provide patient with a stroke education packet.
-PT evaluations.
-DVT prophylaxis.
-Repeat MRA head imaging in about 12 months for R MCA aneurysm surveillance.
-Follow-up with as an outpatient. Has an appt with Dr. Stallings in April 2024, may see the [employer] if there is a need to be seen more timely.
Subjective/Objective
Subjective Data
Date of Service: February 08, 2024
No acute events overnight. Patient reports feeling anxious about his pending test results this morning and he thinks his anxiety trigged his dizziness to return. He currently reports a mild spinning sensation, he denies any nausea/vomiting. He just
took meclizine. He denies any headache, vision changes, speech/swallow difficulty, numbness, weakness, ataxia, chest pain, palpitations, and shortness of breath.
Objective Data
Vital Signs
Temp Pulse Resp BP Pulse Ox
98.0 F 84 19 141/101 100
02/08/24 07:30 02/08/24 07:30 02/08/24 07:30 02/08/24 07:30 02/08/24 07:30
Lab Results
02/06/24 18:59
02/07/24 07:57
PT 14.2 Sec (11.4-14.6) 02/07/24 07:57
INR 1.12 02/07/24 07:57
Sodium 136 mmol/L (135-145) 02/07/24 07:57
Potassium 4.1 mmol/L (3.5-5.1) 02/07/24 07:57
BUN 18 mg/dl (9-20) 02/07/24 07:57
Glucose 87 mg/dl (70-99) 02/07/24 07:57
Calcium 9.5 mg/dl (8.4-10.2) 02/07/24 07:57
LDL Cholesterol, Calc 84 mg/dl 02/07/24 07:57
Patient Allergies
No Known Allergies Allergy (Verified 02/06/24 18:38)
LDL Level: >70, statin ordered
Review of Systems
-
History Source: Patient
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
Respiratory: Negative Cough or Trouble Breathing
Cardiac: Negative Chest Pain or Palpitations
Abdomen/GI: Negative Nausea
Neuro: Dizzy; Negative Headache, Weakness, Numbness, Ataxia or Speech Problem
Physical Exam
-
General: Well Developed, Well Nourished and Appears in Distress
Eyes: No Ptosis and PERRLA
HEENT: Normocephalic and Atraumatic
Neck: Full Range of Motion
Respiratory: No Dyspnea
GI: Non-distended
Extremities: No Clubbing, No Cyanosis and No Edema
Psych: Anxious
Extended Neurological Exam
Mood & Affect: Anxious
Attention Span & Concentration: Awake, Alert and Interactive
Memory: Unremarkable (AAOx3) and Able to Recall
Tremor: Hand Tremor Absent and Head Tremor Absent
Involuntary Movement: None
Speech: Quality Unremarkable, Quantity Unremarkable and Rate of Production Unremarkable
Cranial Nerve II: Left Eye: Pupillary Reactivity Unremarkable, Pupillary Size Unremarkable and Visual Smart Reduced (reduced in distant LLQ/RLQ)
Cranial Nerve II: Right Eye: Pupillary Reactivity Unremarkable, Pupillary Size Unremarkable and Visual Smart Intact
Cranial Nerves III, IV, : Extraocular Movement: Extraocular Movement Full in all Directions, Nystagmus with Extreme Gaze to Left, Nystagmus with Extreme Gaze to Right and Other (nystagmus with upward gaze)
Cranial Nerve V: Facial Sensation: Intact to Light Touch
Cranial Nerve VII: Facial Symmetry: Normal Facial Symmetry
Cranial Nerve VIII: Hearing: Unremarkable Hearing to Normal Conversational Volume
Cranial Nerves IX, X: Palate Movement: Palate Elevation Symmetric
Cranial Nerve XI: Shoulder Shrug: Unremarkable
Cranial Nerve XII: Tongue Protusion: Midline
Muscle Strength, Overall: Full Throughout
Muscle Bulk & Tone: Bulk Unremarkable and Tone Unremarkable
Pronator Drift: No Drift in Upper Extremities and No Drift in Lower Extremities
Deep Tendon Reflexes: Unremarkable Throughout
Cold Sensation: Unremarkable
Vibration Sensation: Unremarkable
Touch Sensation: Double Simultaneous Stimulation Unremarkable
Coordination: Onplbv-ibtu-pymvkw Testing Unremarkable
Babinski Sign: Absent Bilaterally
Gait & Station: Up from Lying with Difficulty and Other (gait steady)
Modified Jessica Score (MRS)
-
Modified [place] Scale (mRS): No symptoms
Score: 0
Data Reviewed
-
CT Head: Report Reviewed and Image Reviewed
MRI Head: Report Reviewed and Image Reviewed
MRA Head: Report Reviewed and Image Reviewed
MRA Neck: Report Reviewed and Image Reviewed
Labs: Report Reviewed
Lipid Profile: Report Reviewed
HgbA1C: Report Reviewed
Reviewed with: Physician and Patient
Medications
-
Active Medications
Generic Name Dose Route Start Last Admin
Trade Name Freq PRN Reason Stop Dose Admin
Acetaminophen 650 mg 02/06/24 22:41
Acetaminophen 325 Mg Tablet PO 03/05/24 22:40
Q6HPRN PRN
mild pain
Acetaminophen 650 mg 02/06/24 22:41
Acetaminophen 650 Mg Rectal Suppository RECTAL 03/05/24 22:40
Q4HPRN PRN
GUEVARA, or temp >100.4F
Acetaminophen 650 mg 02/06/24 22:41
Acetaminophen 325 Mg Tablet PO 03/05/24 22:40
Q4HPRN PRN
GUEVARA, or temp >100.4F
Ascorbic Acid 500 mg 02/07/24 08:00 02/08/24 08:06
Ascorbic Acid 500 Mg Tablet PO 03/06/24 07:59 500 mg
DAILY JESSICA Administration
Aspirin 81 mg 02/07/24 08:00 02/08/24 08:06
Aspirin 81 Mg Chewable Tablet PO 03/06/24 07:59 81 mg
DAILY JESSICA Administration
Atorvastatin Calcium 20 mg 02/07/24 08:00 02/08/24 08:05
Atorvastatin (Lipitor) 20 Mg Tablet PO 03/06/24 07:59 20 mg
DAILY JESSICA Administration
Ceftriaxone Sodium 2,000 mg 02/07/24 08:00 02/08/24 08:06
Ceftriaxone 2,000 Mg/20 Ml Vial IV 2,000 mg
Q24H JESSICA Administration
Cyanocobalamin 1,000 mcg 02/07/24 08:00 02/08/24 08:06
Cyanocobalamin 1,000 Mcg Tablet PO 03/06/24 07:59 1,000 mcg
DAILY JESSICA Administration
Ferrous Sulfate 325 mg 02/07/24 08:00 02/08/24 08:06
Ferrous Sulfate 325 Mg Tablet PO 03/06/24 07:59 325 mg
DAILY JESSICA Administration
Meclizine HCl 12.5 mg 02/06/24 22:41 02/08/24 08:06
Meclizine 12.5 Mg Tablet PO 03/05/24 22:40 12.5 mg
TID JESSICA Administration
Metoprolol Succinate 25 mg 02/07/24 08:00 02/08/24 08:05
Metoprolol 25 Mg Extended Release Tablet PO 03/06/24 07:59 25 mg
DAILY JESSICA Administration
Metoprolol Succinate 12.5 mg 02/07/24 08:00 02/08/24 08:05
Metoprolol 12.5 Mg Extended Release Dose (1/2 Of 25 Mg Xl Tablet) PO 03/06/24 07:59 12.5 mg
DAILY JESSICA Administration
Sterile Water 20 ml 02/07/24 08:00 02/08/24 08:06
Sterile Water For Injection 20 Ml Vial IV 03/06/24 07:59 20 ml
Q24H JESSICA Administration
Home Medications
Medication Instructions Recorded
acetaminophen 325 mg tablet 650 mg PO Q6HPRN PRN mild pain 01/17/24
(Tylenol)
atorvastatin 20 mg tablet (Lipitor) 20 mg PO DAILY High Cholesterol 01/17/24
cyanocobalamin (vitamin B-12) 1,000 mcg PO DAILY Supplement 01/17/24
1,000 mcg tablet
ferrous sulfate 325 mg (65 mg 325 mg PO DAILY Supplement 01/17/24
iron) tablet
ascorbic acid (vitamin C) 500 mg 500 mg PO DAILY #60 tabs 01/25/24
tablet (Vitamin C)
aspirin 81 mg chewable tablet 81 mg PO DAILY Blood clot 01/25/24
(Children's Aspirin) prevention/tx #0 tabs
ceftriaxone 2 gram intravenous 2,000 mg IV Q24H Endocarditis 42 01/25/24
solution days
metoprolol succinate 25 mg 37.5 mg PO DAILY Blood pressure 01/25/24
tablet,extended release 24 hr #60 tabs
meclizine 12.5 mg tablet 12.5 mg PO TID PRN vertigo 02/06/24

Documented by User: Harry Mcmillan MD 02/08/24 12:53
Modified Jessica Score (MRS)
-
Score: 0
--- NOTE | 2024-02-08 09:19 | W.PN.UPDATE ---
Update Note
Progress Note Update
Patient seen earlier today. Patient had previously undergone aortic valve replacement due to endocarditis. Now readmitted for dizziness. Neurology consulted, no neurologic deficits. MRI results noted. Patient reports previous scans done for
hypertension evaluation.
No complaints at present
VSS
Sternum stable, incisions clean and dry, healing nicely
Continue current management as per neurology and primary service.
[2024-02-08 11:15] VITALS: BP 157/101
[2024-02-08 14:30] VITALS: BP 161/104
--- NOTE | 2024-02-08 15:47 | CM ---
Patient seen at bedside with physician. CM will confirm with [facility] and patient complaining of dizziness. CM will continue to follow for discharge planning needs.
Plan; home with [facility], watch for VN needs.
--- NOTE | 2024-02-08 15:58 | W.PN.HOSP.TC ---
Today's Communication/Plan
-
PT for BPPV
d/c planning
IV hydralazine
Assessment / Plan
Assessment / Plan
pt is a 58 year old male
Dizziness and vertigo, associated with recent TAVR for aortic valve endocarditis (01/22/24)--all scans WNL--apprec neuro--likely BPPV--ask PT to do Zaira and Halpike maneuvers--cont meclizine--PT/OT--cont asa/statin
HTN, essential--permissive HTN for now--continue home metoprolol--add hydralazine
TAVR 01/21--apprec CT surgery input
Aortic Valve endocarditis--continue Rocephin 2 gram IV daily (in the morning) as per OP, via PICC line RUE
DVT proph--PCDs knee
Full Code
Anticipated Discharge: Within 24 hours
Subjective/Interval History
-
Date of Service: February 08, 2024
pt c/o dizziness
Objective Data
-
Vital Signs:
max temp for 24 hours
02/07/24
23:07
Temp 98.1 F
Vital Signs
Temp Pulse Resp BP Pulse Ox
97.7 F 79 18 161/104 99
02/08/24 14:30 02/08/24 14:30 02/08/24 14:30 02/08/24 14:30 02/08/24 14:30
I&O
02/07/24 02/08/24 02/09/24
06:59 06:59 06:59
Intake Total 1320 / 1320
Output Total 400 / 400
Balance -400 / -400 1320 / 1320
Review of Systems
-
All other systems: Reviewed and negative
Neuro: Reports Dizzy
Physical Exam
-
General: Well Developed, Well Nourished and No Apparent Distress
HEENT: Normocephalic and Atraumatic
Respiratory: Clear to Auscultation; Negative Wheezes or Rhonchi
Cardiac: Regular Rhythm and S1/S2; Negative Murmur
GI: Soft, Nontender, Nondistended and Normal Bowel Sounds
Musculoskeletal: No Clubbing, No Cyanosis and No Edema
Neuro: Awake
[2024-02-08] MEDS: APRESOLINE 5 MG IV (16:07)
--- NOTE | 2024-02-09 07:04 | W.DCSUMMARY ---
Discharge Summary
Discharge Data
Date of Admission: 02/06/24
Date of Discharge: 02/08/24
-
Pending Results: No
Hospital Course
Primary care physician : Vineet Chin
Principal Discharge diagnosis : Dizziness and vertigo
Chronic Discharge diagnosis : Essential hypertension, recent TAVR January 22, 2024, aortic valve endocarditis
Hospital Course : Patient was a 58-year-old male with a history of essential hypertension, recent bacteremia with endocarditis requiring TAVR are who presented with dizziness which started acutely on the night prior to admission. Patient was just
sitting on his couch. He had a spinning sensation along with nausea, diaphoresis, but without vomiting. He did take meclizine with some improvement. On the day of admission patient stated that his symptoms returned and when he did not have relief
with another meclizine he came for evaluation and treatment. Patient was brought in as observation.
Problem #1: Dizziness and vertigo. Patient was brought in as observation and was seen in consultation by neurology. Patient had head CT which was negative on admission. He also underwent MRA of the head and neck and brain MRI. He was found to
have a subacute stroke, however, this was felt not to be related to his symptoms. Neurology feels that this is very likely a peripheral vertigo syndrome. Physical therapy and Occupational Therapy were consulted to do Zaira and Hallpike maneuvers
to assess benign positional vertigo. Unfortunately, patient did not wish to stay in the hospital to have these maneuvers done. In addition, his blood pressure was running high. Initially this was due to permissive hypertension but then IV
hydralazine was added to control the blood pressure more adequately. Again, the patient did not wish to stay in the hospital to assess the usefulness of this new medication. Because of this, he has elected to leave the hospital AGAINST MEDICAL
ADVICE. Neurology feels that the small MCA protrusion noted on the MRA does not need any further follow-up.
Problem #2: All other medical issues. These include Essential hypertension, recent TAVR January 22, 2024, aortic valve endocarditis. These medical issues were stable during his hospitalization. Medications were continued as able. Patient was seen
in consultation by CT surgery for the recent TAVR are with aortic valve endocarditis.
Patient left the hospital AGAINST MEDICAL ADVICE. If there are any questions regarding this dictation or his hospital stay, please not hesitate to call. Our office number is [phone].
Important imaging findings :
HEAD CT IMPRESSION:
1. � There is no acute intracranial process.
2. � MRI would be much more sensitive to evaluate for an occult process.
3. � Mild heterogeneity of the deep white matter suggests mild leukoaraiosis.
BRAIN MRI IMPRESSION: Within the medial aspect of the right precentral gyrus, there is a 2 mm focus of relatively high intensity increased diffusion-weighted signal, with subtle decreased ADC signal and subtle increased FLAIR signal. This would
suggest a small focus of acute to subacute infarction, most likely subacute.
No other suspicious focus of acute to subacute infarction, with particular attention to the cerebellum.
Mild diffuse atrophy.
Mild to moderate T2 and FLAIR white matter hyperintensities, commonly seen with aging and usually attributed to small vessel ischemic disease.
MRA HEAD IMPRESSION: No evidence for significant stenosis or large vessel occlusion of the intracranial circulation.
2 mm rounded protrusion of a branch vessel arising anteriorly from the right middle cerebral artery near its bifurcation, suspicious for a small aneurysm. Consider a follow-up MR angiography of the intracranial circulation, suggested timeframe of 6
months-1 year.
MRA NECK IMPRESSION: No significant narrowing of the carotid bulbs or internal carotid arteries bilaterally within the neck.
No significant narrowing of the vertebral or basilar arteries.
Percent stenosis is calculated using NASCET criteria.
Discharge Plan
-
Patient Disposition: Against Medical Advice
Referrals:
Vineet Chin DO [Family Provider] -
Prescriptions:
No Action
acetaminophen [Tylenol] 325 mg Tablet
650 mg PO Q6HPRN PRN (Reason: mild pain)
atorvastatin [Lipitor] 20 mg Tablet
20 mg PO DAILY
cyanocobalamin (vitamin B-12) 1,000 mcg Tablet
1,000 mcg PO DAILY
ferrous sulfate 325 mg (65 mg iron) Tablet
325 mg PO DAILY
aspirin [Children's Aspirin] 81 mg Tablet,Chewable
81 mg PO DAILY Qty: 0 0RF
ceftriaxone 2 gram recon soln
2,000 mg IV Q24H 42 Days
ascorbic acid (vitamin C) [Vitamin C] 500 mg Tablet
500 mg PO DAILY Qty: 60 0RF
metoprolol succinate 25 mg Tablet Extended Release 24 Hr
37.5 mg PO DAILY Qty: 60 1RF
meclizine 12.5 mg Tablet
12.5 mg PO TID PRN (Reason: vertigo)
Discharge Date and Time
Discharge Date/Time: 02/08/24 18:45
== END 2024-02-08 18:45 | disposition left against medical advice (07) ==
LOC: 4 WEST ACU 22:17
PROVIDERS: Student in an Organized Health Care Education/Training Program; ADMITTING PHYSICIAN Internal Medicine; ATTENDING PHYSICIAN Internal Medicine; CONSULT PHYSICIAN Thoracic Surgery (Cardiothoracic Vascular Surgery); EMERGENCY PHYSICIAN Emergency Medicine; FAMILY PHYSICIAN Family Medicine Sports Medicine
DX: R42 Dizziness and giddiness (principal); I10 Essential (primary) hypertension; R61 Generalized hyperhidrosis; R11.0 Nausea; H55.00 Unspecified nystagmus; R26.2 Difficulty in walking, not elsewhere classified; E78.00 Pure hypercholesterolemia, unspecified; Z95.2 Presence of prosthetic heart valve; Z86.79 Personal history of other diseases of the circulatory system; Z79.82 Long term (current) use of aspirin
CPT/HCPCS: 70450; 70544; 70548; 70551; 71045; 80048; 80053; 80061; 83735; 85025; 85610; 93005; 97162; 99285; A9585; G0378

== ENCOUNTER 2024-02-09 08:26 | Emergency (ER) | payer BC, SELFPAY ==
[2024-02-09] VITALS (12 sets, daily range): BP systolic 132–164; BP diastolic 91–122; BMI 27.2
--- NOTE | 2024-02-09 09:59 | ED.GENMED ---
History of Present Illness
General
Chief Complaint: Dizziness
Source: patient
Exam Limitations: none
Time Seen by Provider: 02/09/24 09:45
Travel History
Have you had any contact with someone who has COVID-19?: No
Do you have any symptoms of coronavirus? Fever > 100 degrees, chills, cough, shortness of breath, sore throat, loss of taste or smell, muscle aches, or headache?: No
History of Present Illness
History of Present Illness:
58-year-old male presents for reevaluation. He was here in the hospital as of last admitted as an inpatient for dizziness and hypertension. He was worked up with CT of the head MRA and MRI of the head and neck. No findings on the studies were
thought to be related to his presenting symptoms. Recently had a TAVR secondary to bacterial endocarditis. He has a PICC line he gets daily antibiotics for. He was getting anxious in the hospital last night and did not want a wait for further
treatment including hydralazine and PT eval. He left AMA. He states his symptoms are persistent and he is ready to be evaluated and treated again. He took his metoprolol this morning he also took his antibiotics no new symptoms. He denies any
double vision blurry vision or loss of vision. No unilateral numbness or weakness. He feels as though the dizziness made worse when he turns his head to the right.
Phy Exam
Physical Exam
Physical Exam:
General: Well-appearing male no acute respiratory distress
HEENT: Normocephalic atraumatic pupils equal round reactive to light horizontal nystagmus noted upon extract motion testing
Heart: Regular rate and rhythm no murmurs
Lungs: CTA bilaterally
Ext: NO cyanosis, or edema
Skin: warm, no rashes
Neuro: No facial asymmetry or slurred speech. No drift on exam finger-nose and [id number] intact.
Course
Orders/Labs/Results
Orders:
Orders
02/09/24 08:39
Electrocardiogram (*1) Urgent
Reason for Study: Vertigo / Dizzy
02/09/24 08:40
EKG- Treatment ONCE
02/09/24 09:58
PT Consult [Pt Eval And Treat] Urgent
Treatment: vestibular eval
Activity Level: Ambulate
02/09/24 11:30
HydrALAZINE [Apresoline] 10 mg IV NOW STA
CR Chest Portable - 1 View Urgent
Reason For Exam: picc placement
Vital Signs
Initial and Last Documented VS:
Initial Vital Signs
Temp Pulse Resp BP Pulse Ox
97.8 F 100 22 155/115 100
02/09/24 08:34 02/09/24 08:34 02/09/24 08:34 02/09/24 08:34 02/09/24 08:34
Last Documented Vital Signs
Temp Pulse Resp BP Pulse Ox
97.8 F 101 16 145/97 96
02/09/24 08:34 02/09/24 13:00 02/09/24 13:00 02/09/24 13:00 02/09/24 12:45
MDM/Problems Addressed
Differential Diagnosis Includes:
Persistent dizziness and elevated blood pressure. Patient was worked up while here in the hospital just left several hours ago AMA. Will recheck blood pressure here. Physical therapy consult placed.
*Critical Care Note
Total Time (30-74mins, 75-104mins- exclusive of procedures): Not Applicable
Update Note
Update Note:
Evaluated by physical therapy. Exam more consistent with vestibular neuritis. Recommendation for physical therapy was to start steroids. Patient blood pressure improved after IV hydralazine. At this point knowing that he had other imaging
studies done while in the hospital over the last several days noted indication for admission. Will add hydralazine p.o. at home and steroids and have him follow-up with his family doctor. Stable for discharge
ED Attending Note
-
Portions of this chart may have been created with voice recognition software.� Occasional wrong word or��sound alike� substitutions may have occurred due to the inherent limitations of voice recognition software.
Discharge Plan
Departure
Patient Disposition: Home (Routine Discharge)
Date of Disposition: 02/09/24
Time of Disposition: 13:45
Patient with high blood pressure during this ER visit?: No
Discharge Problem:
Acute vestibular neuritis
Instructions: Dizziness
Prescriptions:
New
hydralazine 10 mg tablet
10 mg PO BID Qty: 14 0RF
prednisone 20 mg tablet
40 mg PO DAILY 5 Days Qty: 10 0RF
No Action
acetaminophen [Tylenol] 325 mg Tablet
650 mg PO Q6HPRN PRN (Reason: mild pain)
atorvastatin [Lipitor] 20 mg Tablet
20 mg PO DAILY
cyanocobalamin (vitamin B-12) 1,000 mcg Tablet
1,000 mcg PO DAILY
ferrous sulfate 325 mg (65 mg iron) Tablet
325 mg PO DAILY
aspirin [Children's Aspirin] 81 mg Tablet,Chewable
81 mg PO DAILY Qty: 0 0RF
ceftriaxone 2 gram recon soln
2,000 mg IV Q24H 42 Days
ascorbic acid (vitamin C) [Vitamin C] 500 mg Tablet
500 mg PO DAILY Qty: 60 0RF
metoprolol succinate 25 mg Tablet Extended Release 24 Hr
37.5 mg PO DAILY Qty: 60 1RF
meclizine 12.5 mg Tablet
12.5 mg PO TID PRN (Reason: vertigo)
Referrals:
Vineet Chin DO [Family Provider] -
Activity Restrictions/Additional Instructions:
Continue your blood pressure medication. Add hydralazine 10 mg twice a day and take prednisone for the dizziness. Please return here for worsening symptoms otherwise follow-up with family doctor
Interventions
Interventions:
*Risk Screen - Suicide Last Done: 02/09/24 09:38
*General Assessment Last Done: 02/09/24 09:37
*Neglect/Abuse Screening Last Done: 02/09/24 09:38
ED- Fall Risk Assessment Last Done: 02/09/24 09:41
*ED COVID-19 Vaccine History Last Done: 02/09/24 09:37
ED- Neurological Assessment Last Done: 02/09/24 09:41
ED- Cardiac Assessment Last Done: 02/09/24 09:41
[2024-02-09] MEDS: APRESOLINE 10 MG IV (11:50)
== END 2024-02-09 14:04 | disposition home or self-care (01) ==
LOC: EMR 08:26
PROVIDERS: EMERGENCY PHYSICIAN Emergency Medicine; FAMILY PHYSICIAN Family Medicine Sports Medicine
DX: H93.3X9 Disorders of unspecified acoustic nerve (principal); I10 Essential (primary) hypertension
CPT/HCPCS: 99284; 96374; 71045; 93005

== ENCOUNTER 2024-02-12 07:03 | Emergency (ER) | payer BC, SELFPAY ==
[2024-02-12] VITALS (12 sets, daily range): BP systolic 124–175; BP diastolic 69–116
[2024-02-12 07:42] LABS: ALT (SGPT) 25 U/L (0-50); AST (SGOT) 28 U/L (17-59); Albumin 4.5 g/dl (3.5-5.0); Alkaline Phosphatase 120 U/L (38-126); Blood Urea Nitrogen 25 mg/dl (9-20); Carbon Dioxide 22 mmol/L (22-30); Chloride 105 mmol/L (98-107); Glucose 93 mg/dl (70-99); Potassium 4.5 mmol/L (3.5-5.1); Sodium 136 mmol/L (135-145); Total Bilirubin 0.7 mg/dl (0.2-1.3); Total Protein 7.8 g/dl (6.3-8.2); eGFR > 60.00
[2024-02-12 07:44] LABS: % Basophils 0.9 % (0-2); % Eosinophils 0.4 % (0-6); % Immature Granulocytes 1.2 % (0-0.5); % Lymphocytes 26.3 % (20.5-51.1); % Monocytes 12.8 % (1.7-9.3); % Neutrophils 58.4 % (42.2-75.2); Absolute Basophils 0.1 10^3/uL (0-0.2); Absolute Immature Granulocytes 0.1 10^3/uL (0-0.05); Absolute Lymphocytes 2.2 10^3/uL (1.2-3.4); Absolute Monocytes 1.1 10^3/uL (0.1-0.6); Absolute Neutrophils 4.8 10^3/uL (1.4-6.5); Hematocrit 34.1 % (39.0-52.0); Hemoglobin 11.4 g/dL (13.0-18.0); Mean Corp Hgb Conc. 33.4 g/dL (33.0-37.0); Mean Corpuscular Hgb 27.5 pg (27.0-31.0); Mean Corpuscular Volume 82.4 fL (80.0-94.0); Mean Platelet Volume 8.9 fL (7.4-10.4); Nucleated Red Blood Cells % 0 % (-); Platelet Count 418 10^3/uL (130-400); Red Blood Cell Count 4.14 10^6/uL (4.70-6.10); Red Cell Dist. Width 16.4 % (11.5-14.5); White Blood Cell Count 8.2 10^3/uL (4.8-10.8)
[2024-02-12 07:54] LABS: Troponin I < 0.012 ng/ml
--- NOTE | 2024-02-12 09:35 | ED.GENMED ---
History of Present Illness
General
Chief Complaint: Blood Pressure Problem
Source: patient
Exam Limitations: none
Time Seen by Provider: 02/12/24 08:31
Nursing documentation reviewed up to this point in time: agreed with
Travel History
Have you had any contact with someone who has COVID-19?: No
Do you have any symptoms of coronavirus? Fever > 100 degrees, chills, cough, shortness of breath, sore throat, loss of taste or smell, muscle aches, or headache?: No
History of Present Illness
History of Present Illness:
58-year-old male presents emergency room complaining of anxiety and high blood pressure he denies any chest pain at this time. 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
Past History
Past History
ED Past Medical History: HTN and Valvular disease
ED Past Surgical History: Cardiac (Aortic valve replacement 01/22/2024 due to endocarditis)
Social History
Tobacco: Non-smoker
Alcohol: None
Drug: None
Personal:
Living: with family
Review of Systems
Review of Systems
Allergies reviewed?: Yes
All Other Systems: Not applicable
Constitutional: Reports no symptoms
EENT: Reports no symptoms
Respiratory: Reports no symptoms
Cardiac: Reports no symptoms
ABD/GI: Reports no symptoms
: Reports no symptoms
Musculoskeletal: Reports no symptoms
Skin: Reports no symptoms
Neurological: Reports no symptoms
Endocrine: Reports no symptoms
Hematologic/Lymphatic: Reports no symptoms
Psychiatric: Reports anxiety
Phy Exam
Physical Exam
Physical Exam:
Physical Exam
General: Blood pressure 175/116
Neck: supple. no meningeal signs. normal posterior pharynx
Heart: s1/s2 regular rate and rhythm, no murmur. equal radial
pulses. Midline sternotomy scar
HEENT: Pupils equal round reactive to light, EOMI
Lungs: no acute respiratory distress. clear bilaterally
Abdomen: normal bowel sounds. not tender. no CVAT
Neuro: alert and oriented. no focal neurological deficits cranial nerves II through XII intact
Skin: no rash
Psychiatric: well kept. interactive and cooperative
Extremities: no edema. no calf tenderness. negative homans. good distal pulses
Course
Orders/Labs/Results
Orders:
Orders
02/12/24 07:09
Electrocardiogram (*1) Urgent
Reason for Study: Chest Pain
EKG- Treatment ONCE
02/12/24 07:20
Complete Blood Count/With Diff Urgent
Comprehensive Metabolic Panel Urgent
Troponin I Urgent
02/12/24 09:14
HydrALAZINE [Apresoline] 10 mg IV NOW STA
02/12/24 09:56
CefTRIAXone [Rocephin] 2,000 mg IV NOW STA
02/12/24 10:20
Sterile Water [Sterile Water For Injection] 20 ml .ROUTE .STK-MED
02/12/24 10:36
HydrALAZINE [Apresoline] 10 mg IV NOW STA
Abnormal Lab Results
02/12/24
07:20
RBC 4.14 L 10^6/uL
(4.70-6.10)
Hgb 11.4 L D g/dL
(13.0-18.0)
Hct 34.1 L %
(39.0-52.0)
RDW 16.4 H %
(11.5-14.5)
Plt Count 418 H D 10^3/uL
(130-400)
Abs Immat Gran (auto) 0.1 H 10^3/uL
(0-0.05)
Absolute Monos (auto) 1.1 H 10^3/uL
(0.1-0.6)
Immature Gran % 1.2 H %
(0-0.5)
Monocytes % 12.8 H %
(1.7-9.3)
BUN 25 H mg/dl
(9-20)
02/12/24 07:20
02/12/24 07:20
Vital Signs
Initial and Last Documented VS:
Initial Vital Signs
Temp Pulse Resp BP Pulse Ox
97.4 F 77 18 175/116 100
02/12/24 07:04 02/12/24 07:04 02/12/24 07:04 02/12/24 07:04 02/12/24 07:04
Last Documented Vital Signs
Temp Pulse Resp BP Pulse Ox
97.7 F 78 20 129/69 97
02/12/24 13:24 02/12/24 13:24 02/12/24 13:24 02/12/24 13:24 02/12/24 13:24
MDM/Problems Addressed
Differential Diagnosis Includes:
Hypertensive emergency, ACS
MDM/Problems Addressed:
58-year-old male with hypertensive urgency improved after hydralazine. Patient stable for discharge. Blood pressure improved after observation and treatment with IV hydralazine. Prescription for 25 mg hydralazine 3 times daily given.
Chronic conditions affecting care: HTN and Cardiomyopathy
Acute Exacerbation and/or Progression of Chronic Illness: HTN and Cardiomyopathy
*Pulse Oximetry
Patient hypoxic: no
*EKG
Interpreted by ED Provider?: Yes
EKG Intrepretation Date: 02/12/24
EKG Intrepretation Time: 07:13
Interpretation: abnormal
Comparison EKG: no comparison EKG present
Heart Rate: 60
Rate: normal
Rhythm: sinus
[place]: normal axis
Interval: normal interval
QRS Pattern: other (LAFB)
Ischemia: no ischemia
*[employer] Interpretation
Rate: normal
Interpretation: normal
Heart Rate: 60
Rhythm: sinus
*Critical Care Note
Total Time (30-74mins, 75-104mins- exclusive of procedures): Not Applicable
Data Reviewed
Review of Other/Old Records Reveals: Discharge Summary (Recent admission for hypertensive urgency and aortic valve replacement and endocarditis)
Patient Management
Social determinants of health affecting care: Living situation
Escalation/DeEscalation of care consider admission/obs:
Admit not indicated
ED Attending Note
-
Portions of this chart may have been created with voice recognition software.� Occasional wrong word or��sound alike� substitutions may have occurred due to the inherent limitations of voice recognition software.
Discharge Plan
Departure
Patient Disposition: Home (Routine Discharge)
Date of Disposition: 02/12/24
Time of Disposition: 11:07
Admit to: IMU
Patient with high blood pressure during this ER visit?: Yes
Condition: Good
Discharge Problem:
Accelerated hypertension, Infective endocarditis
Instructions: High Blood Pressure (DC), BLOOD PRESSURE
Prescriptions:
New
hydralazine 25 mg tablet
25 mg PO TID Qty: 90 0RF
No Action
acetaminophen [Tylenol] 325 mg Tablet
650 mg PO Q6HPRN PRN (Reason: mild pain)
atorvastatin [Lipitor] 20 mg Tablet
20 mg PO DAILY
cyanocobalamin (vitamin B-12) 1,000 mcg Tablet
1,000 mcg PO DAILY
ferrous sulfate 325 mg (65 mg iron) Tablet
325 mg PO DAILY
aspirin [Children's Aspirin] 81 mg Tablet,Chewable
81 mg PO DAILY Qty: 0 0RF
ceftriaxone 2 gram recon soln
2,000 mg IV Q24H 42 Days
ascorbic acid (vitamin C) [Vitamin C] 500 mg Tablet
500 mg PO DAILY Qty: 60 0RF
metoprolol succinate 25 mg Tablet Extended Release 24 Hr
37.5 mg PO DAILY Qty: 60 1RF
meclizine 12.5 mg Tablet
12.5 mg PO TID PRN (Reason: vertigo)
hydralazine 10 mg tablet
10 mg PO BID Qty: 14 0RF
prednisone 20 mg tablet
40 mg PO DAILY 5 Days Qty: 10 0RF
Referrals:
Vineet Chin, [Family Provider] - Keep scheduled appt
Interventions
Interventions:
*Risk Screen - Suicide Last Done: 02/12/24 07:04
*General Assessment Last Done: 02/12/24 07:04
*Neglect/Abuse Screening Last Done: 02/12/24 07:04
*ED COVID-19 Vaccine History Last Done: 02/12/24 13:24
*Nursing Disposition Last Done: 02/12/24 13:24
ED- Cardiac Assessment Last Done: 02/12/24 11:01
ED- Neurological Assessment Last Done: 02/12/24 11:03
ED- Pulmonary Assessment Last Done: 02/12/24 11:04
Discharge Date and Time
Discharge Date/Time: 02/12/24 13:27
Print Language: WALLISIAN
[2024-02-12] MEDS: APRESOLINE 10 MG IV ×2 (09:39→10:48)
[2024-02-12] MEDS: ROCEPHIN 2000 MG IV (10:24)
== END 2024-02-12 13:27 | disposition home or self-care (01) ==
LOC: EMR 07:03
PROVIDERS: EMERGENCY PHYSICIAN Emergency Medicine; FAMILY PHYSICIAN Family Medicine Sports Medicine
DX: I10 Essential (primary) hypertension (principal); I33.0 Acute and subacute infective endocarditis; F41.9 Anxiety disorder, unspecified; Z95.2 Presence of prosthetic heart valve; Z98.890 Other specified postprocedural states; Z79.82 Long term (current) use of aspirin
CPT/HCPCS: 99284; 96374; 96375; 96376; 80053; 84484; 85025; 93005

== ENCOUNTER 2024-02-13 18:46 | Emergency (ER) | payer BC, SELFPAY ==
[2024-02-13 18:51] VITALS: BP 183/125
--- NOTE | 2024-02-13 19:33 | ED.GENMED ---
History of Present Illness
General
Chief Complaint: Blood Pressure Problem
Time Seen by Provider: 02/13/24 19:27
Travel History
Have you had any contact with someone who has COVID-19?: No
Do you have any symptoms of coronavirus? Fever > 100 degrees, chills, cough, shortness of breath, sore throat, loss of taste or smell, muscle aches, or headache?: No
History of Present Illness
History of Present Illness:
HPI: Patient presents due to concerns for blood pressure elevation. He used to be on amlodipine but this was stopped after he had aortic valve repair this past month for endocarditis. He was placed on metoprolol and hydralazine. He was seen here
yesterday and hydralazine dosing was increased. He checked his blood pressure earlier today and the readings were around 200 systolic so he came in here but otherwise he has no symptoms and I feel great'.
EXAM:
GENERAL: Well appearing in no distress, he is noted to be hypertensive
HEENT: Moist oral mucosa
CARDIOVASCULAR: No murmurs, normal heart rate, regular rhythm, No chest wall tenderness
PULMONARY: No respiratory distress, breath sounds are clear and equal
ABDOMEN: Soft with no peritoneal signs, no tenderness
NEUROLOGIC: Excellent strength all extremities, no coordination deficits
PSYCHIATRIC: Appropriate mental status, normal insight and judgement
EXTREMITIES: Nontender, no edema, moves all extremities equally
SKIN: No rash, no lesions
TIME OF INITIAL ENCOUNTER: 7:30 PM
NUMBER AND COMPLEXITY OF PROBLEMS ADDRESSED AT THE ENCOUNTER
� Chronic conditions affecting care: High blood pressure, aortic valve replacement 2023
� Acute Exacerbation and/or Progression of Chronic Illness: This is an acute on chronic problem
� Differential Diagnosis includes: Hypertensive urgency, poorly controlled high blood pressure
AMOUNT AND/OR COMPLEXITY OF DATA TO BE REVIEWED AND ANALYZED
� I performed an independent evaluation of and my interpretation is:
EKG:
CT:
X-rays:
Laboratory Studies: I reviewed the CBC and chemistries from yesterday which were unremarkable including normal renal function. Hemoglobin was low but overall improving.
Other:
� Review of other/old records: I reviewed the notes from yesterday. The patient was given 10 mg of IV hydralazine at 9:14 AM and at 10:36 AM. He was given a prescription for 25 mg of hydralazine 3 times daily.
� Clinical information was obtained by an independent historian: None needed
� Prescriptions/Medications Considered but not given:
� Further testing considered but not performed:
RISK OF COMPLICATIONS AND/OR MORBIDITY OR MORTALITY OF PATIENT MANAGEMENT
� Social determinants of health affecting care: Lives at home
� Discussion with other providers: I discussed case with Dr. Giron and suggested we try amlodipine however Dr. Giron prefers Procardia. Will give a dose now and gave prescription for Procardia XL 60 mg daily.
� Escalation of care including admission/observation vs risk of discharge considered: As above
Past History
Past History
ED Past Medical History: HTN and Valvular disease
ED Past Surgical History: Cardiac (Aortic valve replacement 01/22/2024 due to endocarditis)
Social History
Tobacco: Non-smoker
Alcohol: None
Drug: None
Personal:
Living: with family
Phy Exam
Physical Exam
Physical Exam:
See HPI
Course
Orders/Labs/Results
Orders:
Orders
02/13/24 19:55
NIFEdipine EXTENDED RELEASE [Procardia Xl (Extended Release)] 60 mg PO NOW STA
02/14/24 08:00
Amlodipine [Norvasc] 10 mg PO DAILY
Vital Signs
Initial and Last Documented VS:
Initial Vital Signs
Temp Pulse Resp BP Pulse Ox
97.9 F 77 16 183/125 99
02/13/24 18:51 02/13/24 18:51 02/13/24 18:51 02/13/24 18:51 02/13/24 18:51
Last Documented Vital Signs
Temp Pulse Resp BP Pulse Ox
97.9 F 77 16 183/125 99
02/13/24 18:51 02/13/24 18:51 02/13/24 18:51 02/13/24 18:51 02/13/24 18:51
*Critical Care Note
Total Time (30-74mins, 75-104mins- exclusive of procedures): Not Applicable
ED Attending Note
-
Portions of this chart may have been created with voice recognition software.� Occasional wrong word or��sound alike� substitutions may have occurred due to the inherent limitations of voice recognition software.
Discharge Plan
Departure
Patient Disposition: Home (Routine Discharge)
Date of Disposition: 02/13/24
Time of Disposition: 20:10
Patient with high blood pressure during this ER visit?: Yes
Discharge Problem:
Poor high blood pressure control
Prescriptions:
New
nifedipine [Procardia XL] 60 mg tablet extended release 24hr
60 mg PO DAILY Qty: 30 0RF
No Action
acetaminophen [Tylenol] 325 mg Tablet
650 mg PO Q6HPRN PRN (Reason: mild pain)
atorvastatin [Lipitor] 20 mg Tablet
20 mg PO DAILY
cyanocobalamin (vitamin B-12) 1,000 mcg Tablet
1,000 mcg PO DAILY
ferrous sulfate 325 mg (65 mg iron) Tablet
325 mg PO DAILY
aspirin [Children's Aspirin] 81 mg Tablet,Chewable
81 mg PO DAILY Qty: 0 0RF
ceftriaxone 2 gram recon soln
2,000 mg IV Q24H 42 Days
ascorbic acid (vitamin C) [Vitamin C] 500 mg Tablet
500 mg PO DAILY Qty: 60 0RF
metoprolol succinate 25 mg Tablet Extended Release 24 Hr
37.5 mg PO DAILY Qty: 60 1RF
meclizine 12.5 mg Tablet
12.5 mg PO TID PRN (Reason: vertigo)
hydralazine 10 mg tablet
10 mg PO BID Qty: 14 0RF
prednisone 20 mg tablet
40 mg PO DAILY 5 Days Qty: 10 0RF
hydralazine 25 mg tablet
25 mg PO TID Qty: 90 0RF
Referrals:
Vineet Chin DO [Family Provider] -
Raciel Giron MD [Active] -
Activity Restrictions/Additional Instructions:
Your manual blood pressure reading today when I checked it was 180/110. I spoke to Dr. Giron and he recommends you start Procardia XL 60 mg instead of amlodipine as you have been in the past. Continue taking the hydralazine and the metoprolol as
well as they all work in different ways. Return here if worse.
Interventions
Interventions:
*General Assessment Last Done: 02/13/24 18:51
*ED COVID-19 Vaccine History Last Done: 02/13/24 18:51
Discharge Date and Time
Print Language: CZECH
[2024-02-13] MEDS: PROCARDIA XL (EXTENDED RELEASE) 60 MG PO (20:10)
[2024-02-13 20:14] VITALS: BP 160/100
== END 2024-02-13 20:35 | disposition home or self-care (01) ==
LOC: EMR 18:46
PROVIDERS: EMERGENCY PHYSICIAN Emergency Medicine; FAMILY PHYSICIAN Family Medicine Sports Medicine
DX: I10 Essential (primary) hypertension (principal); Z79.899 Other long term (current) drug therapy; Z95.2 Presence of prosthetic heart valve
CPT/HCPCS: 99282

== ENCOUNTER 2024-03-14 17:08 | Outpatient (RCR) | payer BC, SELFPAY | END 2024-03-14 23:59 | disposition home or self-care (01) | LOC: CRHB 17:08 | PROVIDERS: ATTENDING PHYSICIAN Internal Medicine Cardiovascular Disease; FAMILY PHYSICIAN Family Medicine Sports Medicine | DX: I35.8 Other nonrheumatic aortic valve disorders (principal); Z95.2 Presence of prosthetic heart valve | CPT/HCPCS: 93797; 93798 ==

== ENCOUNTER 2024-04-13 10:38 | Outpatient (RCR) | payer BC, SELFPAY | END 2024-04-13 23:59 | disposition home or self-care (01) | LOC: CRHB 10:38 | PROVIDERS: ATTENDING PHYSICIAN Internal Medicine Cardiovascular Disease; FAMILY PHYSICIAN Family Medicine Sports Medicine | DX: Z95.2 Presence of prosthetic heart valve (principal); I10 Essential (primary) hypertension | CPT/HCPCS: 93306; 93797; 93798; G0422; G0423 ==

== ENCOUNTER → 2025-06-30 13:53 | Outpatient (REF) | payer BC, SELFPAY | LOC: HWRCS 13:53 | PROVIDERS: ATTENDING PHYSICIAN Internal Medicine Cardiovascular Disease; FAMILY PHYSICIAN Family Medicine Sports Medicine | DX: Z86.79 Personal history of other diseases of the circulatory system (principal); Z95.3 Presence of xenogenic heart valve | CPT/HCPCS: 93306 ==